=== PATIENT | male | born 1980 | race Caucasian/White ===

== ENCOUNTER 2020-02-22 11:10 | Emergency (ER) | payer OTHER ==
[~2020-02-22] VITALS: Ht 185.4 cm; Wt 104.3 kg
[2020-02-22 15:03] VITALS: BP 133/98
[2020-02-22] MEDS ORDERED: ACETAMINOPHEN 325 MG TAB PO ONE (15:30)
[2020-02-22] MEDS ORDERED: METHOCARBAMOL 500 MG TAB PO ONE (15:30)
== END 2020-02-22 15:50 | disposition home or self-care (01) ==
LOC: ER 11:10
DX: S62.366A Nondisplaced fracture of neck of fifth metacarpal bone, right hand, initial encounter for closed fracture (principal); Z88.0 Allergy status to penicillin; X58.XXXA Exposure to other specified factors, initial encounter; Y93.89 Activity, other specified; Y92.89 Other specified places as the place of occurrence of the external cause; Y99.8 Other external cause status
CPT/HCPCS: 29125; 73130

== ENCOUNTER 2020-10-11 07:00 | Emergency (ER) | payer OTHER ==
[~2020-10-11] VITALS: Ht 185.4 cm; Wt 108.9 kg
[2020-10-11] MEDS ORDERED: CLINDAMYCIN 900MG IV 50 ML IV ONE (07:45)
[2020-10-11] MEDS ORDERED: cefTRIAXone 1GM/50ML D5W 50 ML IV ONE (07:45)
[2020-10-11] MEDS ORDERED: KETOROLAC TROMETH 30 MG/ML 1ML VIAL IV ONE (08:00)
[2020-10-11 08:21] LABS: Hematocrit 45.6 % (41.0-53.0); Hemoglobin 15.8 g/dL (13.5-17.5); Mean Corpuscular Hgb Conc. 34.6 g/dL (32.0-36.0); Mean Corpuscular Volume 89.7 fL (80.0-100.0); Platelet Count (auto) 211 10^3/uL (140-450); Red Blood Cells 5.08 10^6/uL (4.5-5.90); Red Cell Distribution Width 12.4 % (11.8-14.3); White Blood Cell 7.5 10^3/uL (4.4-10.8)
[2020-10-11 08:32] LABS: Basophils % (manual) 0 (0.0-2.0); Blast Cells 0; Metamyelocytes % 0; Myelocytes % 0; Promyelocytes % 0
[2020-10-11 08:38] LABS: BUN/Creatinine Ratio 9.2; Calcium 8.5 mg/dL (8.5-10.1); Potassium 3.7 mmol/L (3.5-5.1)
[2020-10-11 08:44] LABS: Urine Bacteria NONE SEEN /hpf (None Seen); Urine Blood Negative /uL (Negative); Urine Mucus FEW (None Seen); Urine Specific Gravity 1.026 (1.001-1.035); Urine WBC <1 /hpf (0 - 3)
[2020-10-11] MEDS ORDERED: SODIUM CHLORIDE 0.9% 1,000 ML IV ONE (09:00)
[2020-10-11 09:32] LABS: Band Neutrophils % (manual) 6; Eosinophils % (manual) 5 (0-7); Lymphocytes % (manual) 27 (10.0-50.0); Monocytes % (manual) 17 (0-12); Reactive Lymphocytes 3
[2020-10-11 09:41] VITALS: BP 125/87
== END 2020-10-11 12:40 | disposition home or self-care (01) ==
LOC: ER 07:00
DX: N48.5 Ulcer of penis (principal); N50.89 Other specified disorders of the male genital organs; F17.210 Nicotine dependence, cigarettes, uncomplicated; Z88.0 Allergy status to penicillin
CPT/HCPCS: 36415; 76870; 80048; 81001; 83605; 85007; 85027; 87040; 96361; 96365; 96368; 96375; 99284; J0696; J1885; J3490; J7030; 87077

== ENCOUNTER 2020-10-12 21:39 | Emergency (ER) | payer OTHER ==
[~2020-10-12] VITALS: Ht 182.9 cm; Wt 102.1 kg
[2020-10-12 23:27] LABS: Basophils # (auto) 0.1 10 ^3/uL (0-0.2); Basophils % (auto) 0.8 % (0.0-2.0); Eosinophils # (auto) 0.4 10 ^3/uL (0-0.8); Eosinophils % (auto) 5.8 % (0.0-7.0); Hematocrit 44.8 % (41.0-53.0); Hemoglobin 15.3 g/dL (13.5-17.5); Lymphocytes % (auto) 44.2 % (10.0-50.0); Mean Corpuscular Hemoglobin 30.9 pg (28.0-32.0); Mean Corpuscular Hgb Conc. 34.2 g/dL (32.0-36.0); Mean Corpuscular Volume 90.3 fL (80.0-100.0); Monocytes # (auto) 0.8 10 ^3/uL (0-1.3); Monocytes % (auto) 12.4 % (0.0-12.0); Neutrophils # (auto) 2.5 10 ^3/uL (1.6-8.6); Neutrophils % (auto) 36.8 % (37.0-80.0); Nucleated Red Blood Cells % 0.1 %; Platelet Count (auto) 231 10^3/uL (140-450); Red Blood Cells 4.96 10^6/uL (4.5-5.90); Red Cell Distribution Width 12.6 % (11.8-14.3); White Blood Cell 6.7 10^3/uL (4.4-10.8)
[2020-10-12 23:43] LABS: Albumin 3.8 g/dL (3.4-5.0); BUN/Creatinine Ratio 12.3; Calcium 8.8 mg/dL (8.5-10.1); INR 0.93 (0.9-1.15); Partial Thromboplastin Time 26.6 sec (23.0-31.2); Potassium 3.9 mmol/L (3.5-5.1)
[2020-10-12 23:46] LABS: Bilirubin, Total 0.4 mg/dL (0.2-1.0); Total Protein 7.7 g/dL (6.4-8.2)
[2020-10-13 04:02] VITALS: BP 133/88
== END 2020-10-13 04:28 | disposition home or self-care (01) ==
LOC: ER 21:39
DX: N49.2 Inflammatory disorders of scrotum (principal); S31.2 Open wound of penis; L08.9 Local infection of the skin and subcutaneous tissue, unspecified; R78.81 Bacteremia; Z88.0 Allergy status to penicillin; W50.3XXD Accidental bite by another person, subsequent encounter
CPT/HCPCS: 36415; 80053; 85025; 85610; 85730; 87040; 87205

== ENCOUNTER 2021-03-22 12:14 | Emergency (ER) | payer OTHER ==
[~2021-03-22] VITALS: Ht 185.4 cm; Wt 99.8 kg
[2021-03-22 14:37] VITALS: BP 128/91
[2021-03-22] MEDS ORDERED: methylPREDNISolone SOD SUCC 125 MG/2 ML VL IM ONE (15:00)
[2021-03-22] MEDS ORDERED: cefTRIAXone SOD 1,000 MG VL IM ONE (15:00)
== END 2021-03-22 15:34 | disposition home or self-care (01) ==
LOC: ER 12:14
DX: J01.00 Acute maxillary sinusitis, unspecified (principal); K12.2 Cellulitis and abscess of mouth; F17.210 Nicotine dependence, cigarettes, uncomplicated; Z90.49 Acquired absence of other specified parts of digestive tract; Z90.89 Acquired absence of other organs
CPT/HCPCS: 71046; 96372; 99284; J0696; J2930

== ENCOUNTER 2021-10-25 09:24 | Emergency (ER) | payer OTHER ==
[~2021-10-25] VITALS: Ht 185.4 cm; Wt 93.0 kg
[2021-10-25 10:07] VITALS: BP 115/85
[2021-10-25] MEDS ORDERED: ACETAMINOPHEN 500 MG TAB PO ONE (10:15)
[2021-10-25] MEDS ORDERED: methylPREDNISolone SOD SUCC 125 MG/2 ML VL IM ONE (10:15)
[2021-10-25] MEDS ORDERED: cefTRIAXone SOD 1,000 MG VL IM ONE (10:15)
[2021-10-25] MEDS ORDERED: AZIT500T66 PO (10:38)
[2021-10-25] MEDS ORDERED: IBUP800T27 PO (10:38)
[2021-10-25] MEDS ORDERED: PROM1SOL4 PO (10:38)
== END 2021-10-25 10:51 | disposition home or self-care (01) ==
LOC: ER 09:24
DX: J02.9 Acute pharyngitis, unspecified (principal); J20.9 Acute bronchitis, unspecified; H66.91 Otitis media, unspecified, right ear; F17.210 Nicotine dependence, cigarettes, uncomplicated; Z90.49 Acquired absence of other specified parts of digestive tract; Z90.89 Acquired absence of other organs
CPT/HCPCS: 71046; 96372; 99284; J0696; J2930

== ENCOUNTER 2024-11-05 19:07 | Inpatient (IN) | payer OTHER ==
[~2024-11-05] VITALS: Ht 185.4 cm; Wt 99.7 kg
[~2024-11-05 19:07] MED LIST: AZIT500T66 PO; IBUP-1456 PO; PROM1SOL4 PO
--- NOTE | 2024-11-05 19:50 | DVH ---
Exam: CT CT AB PEL WO CON-NO ORAL OR IV History: abd pain Comparison Study: None available at time of dictation. TECHNIQUE: Multidetector CT of the abdomen was performed from lung bases to pubic symphysis. Imaging was performed without IV contrast. Axial, coronal and sagittal multiplanar reformats were obtained fr om the axial data set by the technologist. Radiation Dose Information: CT Dose: CTDI volume is 17.28 mGy. Dose-length product is 1030.9 mGy*cm FINDINGS: Evaluation of solid organs is limited due to lack of intravenous contrast use. Findings: Lung Bases: No acute or significant lung base finding. Normal heart size. No pleural or pericardial effusion. Liver: The liver is normal in size. No focal lesions. Gallbladder and Biliary Tree: Unremarkable Spleen: Unremarkable Pancreas: The pancreas is grossly normal in appearance. Adrenal Glands: Unremarkable Kidneys: Kidneys are grossly normal without calculi or hydronephrosis. Bladder: Grossly unremarkable for degree of distention. Bowel: The stomach is grossly normal in appearance. Small bowel and colon are normal in caliber and d istribution. Diverticulosis with A concentrated area of diverticuli in the sigmoid colon 4 there is p ericolonic stranding suggesting inflammatory changes and acute diverticulitis. There is no free air o r free fluid. The appendix is not visualized; however, no secondary findings of acute appendicitis i dentified. Ascites: Absent Lymphadenopathy: No mesenteric, retroperitoneal or periportal lymphadenopathy. Abdominal Wall and Mesentery: Unremarkable. Vasculature: The visualized abdominal aorta is normal in size and caliber. Evaluation of abdominal a nd pelvic vessels is limited due to lack of intravenous contrast. Pelvic Organs: Unremarkable Musculoskeletal: No aggressive focal bony lesions, acute fractures or dislocation. Soft tissues: Unremarkable IMPRESSION: 1. Findings suggest uncomplicated sigmoid diverticulitis. Radiation optimization: All CT scans at this facility use at least one of these dose optimization sneha hniques: automated exposure control mA and/or kV adjustment per patient size (includes targeted exam s where dose is matched to clinical indication) or iterative reconstruction.
[2024-11-05 20:10] LABS: Basophils # (auto) 0 10 ^3/uL (0-0.2); Basophils % (auto) 0.3 % (0.0-2.0); Eosinophils # (auto) 0.3 10 ^3/uL (0-0.8); Eosinophils % (auto) 2.5 % (0.0-7.0); Hematocrit 49.3 % (41.0-53.0); Hemoglobin 16.6 g/dL (13.5-17.5); Lymphocytes # (auto) 2.1 10 ^3/uL (0.4-5.4); Lymphocytes % (auto) 14.9 % (10.0-50.0); Mean Corpuscular Hemoglobin 30.6 pg (28.0-32.0); Mean Corpuscular Hgb Conc. 33.7 g/dL (32.0-36.0); Mean Corpuscular Volume 90.9 fL (80.0-100.0); Monocytes # (auto) 1.6 10 ^3/uL (0-1.3); Monocytes % (auto) 11.3 % (0.0-12.0); Neutrophils # (auto) 9.9 10 ^3/uL (1.6-8.6); Nucleated Red Blood Cells % 0.2 %; Platelet Count (auto) 296 10^3/uL (140-450); Red Blood Cells 5.43 10^6/uL (4.5-5.90); Red Cell Distribution Width 12.9 % (11.8-14.3)
--- NOTE | 2024-11-05 20:24 | ED.PDOC ---
GI ASSESSMENT HPI Comments 43-year-old male presents with a chief complaint of abdominal pain x 3 days with associated rectal bleeding and melena. Patient states that his pain is localized to his rectum, radiates to his umbilicus, describes as sharp and rates his pain a 8/10. Patient mentions that his stool has been black in color and when he wipe s he has blood on the toilet paper. Patient mentions that the pain has been increasing for the past x 3 days. Patient denies any injuries or trauma prior to onset of symptoms. No other symptoms or modifying factors present at this time. PMHx: Denies PSHx: Appendectomy, Tonsillectomy Soila: HPI: Poor Historian. REVIEW OF SYSTEMS: CONSTITUTIONAL: Denies acute: fever, diaphoresis, chills, generalized weakness. HEAD: Denies acute: headache, photophobia Eyes: Denies acute: Double vision, vision loss, eye pain, eye discharge. EARS: Denies acute: tinnitus, hearing loss, ear discharge, ear pain, THROAT: Denies acute: sore throat, swelling, difficulty swallowing , pain with swallowing, change in voice. NECK: Denies acute: neck pain, neck swelling, stiff neck. HEART: Denies acute : chest pain, palpitations, LUNGS: Denies acute: SOB, wheezing, cough, hemoptysis ABDOMEN: Denies acute: Nausea, Vomiting, diarrhea, , hematemesis, SKIN: Denies acute: rash, redness, lesions, itchiness. EXTREMITIES: Denies acute: calf pain, numbness, tingling, weakness, denies pain in extremity. Denies acute: Low back pain. Neuro: Denies acute: focal neurological deficit, motor or sensory focal neurological deficit, tremors, seizure like activity, confusion, dizziness, change in mental status, loss of bowel or bladder function, cauda equina like symptoms. : Denies acute: dysuria, hematuria, flank pain, increase in urinary frequency. PSYCH: Denies acute: hallucination, suicidal ideation, homicidal ideation. PHYSICAL EXAM: General: no acute distress, awake and alert. Head: normocephalic, atraumatic. Neck: supple, trachea is midline, no swelling. Throat: Normal phonation. Eyes:, no erythema, no purulent discharge, no proptosis, no icterus. Heart: regular rate, regular rhythm, no significant murmur appreciated. Lungs: no apparent respiratory distress, Able to speak in full sentences. No wheezing, no rhonchi, no crackles. No stridors Clear to auscultation bilaterally. Abdomen: Periumbilical and left lower quadrant tender to palpation, non distended, soft, no guarding, no rebound, + bowel sounds. Neuro: Awake, Alert, oriented to name, self, situation, follows commands GCS=15. Speech is normal. Skin: no petechia, no purpura, no cyanosis, non-pale, not jaundice. Lower extremities: --no - Pitting edema no deformity, no focal swelling, no calf TTP. Makes eye contact. moves all four extremities. Face: no apparent facial droop. Ambulating in the ED independently. ED COURSE: At this time 9:33 p.m. The case was discussed with the admitting team (HPI, physical exam, labs and diagnostic tests that were available at the time of disposition, ED course, treatment plan) on the phone. They agreed to admit the patient to their service and assume care of this patient from this point forward. NICKOLAS England. Time Seen by MD: 20:15 Primary Care Provider: WALTER ARENAS Reviewed Notes: Nurses Notes, Medications, Allergies Allergies: Coded Allergies: Penicillins (Verified Allergy, Unknown, 02/22/20) Home Meds Active Scripts Promethazine-Dm (Promethazine Dm 6.25-15 mg/5Ml) 1 Marielena Marielena, 1 MARIELENA PO TID, #180 ML Prov:MIKALA GARCES 10/25/21 Ibuprofen (Ibuprofen) 800 Mg Tab, 800 MG PO Q8HP PRN, #30 TAB Prov:MIKALA GARCES 10/25/21 Azithromycin (Azithromycin) 500 Mg Tab, 500 MG PO DAILY for 7 Days, #7 TAB Prov:MIKALA GARCES 10/25/21 Information Source: Patient Mode of Arrival: Ambulatory Timing: Days Duration: Since onset Prehospital treatment: None Quality: Sharp Past Medical History PAST MEDICAL HISTORY: Denies Surgical History: Appendectomy, Tonsillectomy Family History Family History: Reviewed,noncontributory to illness Social History Smoker: Cigarettes Alcohol: Occasionally Drugs: Cocaine Lives In: Home Was a procedure done? Was a procedure done?: No GI differential Dx Differential Diagnosis: Other (DDX include but not limited to diverticulitis, colitis, gastroenteritis, acute abdomen, SBO, enteritis, constipation, volvulus, appendicitis, Gallbladder disease, choledocolithiasis, ascending cholangitis, pancreatitis, intraAbdominal mass/neoplasm, hepatitis, UTI, pylonephritis, kidney stone, aneurysm, dissection, Inflammatory bowel disease, gastroparesis, ischemic bowel.) X-Ray, Labs, Meds, VS Vital Signs Date Time Temp Pulse Resp B/P (MAP) Pulse Ox O2 Delivery O2 Flow Rate FiO2 11/05/24 20:30 99.4 113 20 134/97 (109) 98 99.4 Lab Test 11/05/24 19:39 11/05/24 00:00 Range/Units White Blood Count 14.0 H 4.4-10.8 10^3/uL Red Blood Count 5.43 4.5-5.90 10^6/uL Hemoglobin 16.6 13.5-17.5 g/dL Hematocrit 49.3 41.0-53.0 % Mean Corpuscular Volume 90.9 80.0-100.0 fL Mean Corpuscular Hemoglobin 30.6 28.0-32.0 pg Mean Corpuscular Hemoglobin Concent 33.7 32.0-36.0 g/dL Red Cell Distribution Width 12.9 11.8-14.3 % Platelet Count 296 140-450 10^3/uL Mean Platelet Volume 8.3 6.9-10.8 fL Neutrophils (%) (Auto) 71.0 37.0-80.0 % Lymphocytes (%) (Auto) 14.9 10.0-50.0 % Monocytes (%) (Auto) 11.3 0.0-12.0 % Eosinophils (%) (Auto) 2.5 0.0-7.0 % Basophils (%) (Auto) 0.3 0.0-2.0 % Neutrophils # (Auto) 9.9 H 1.6-8.6 10 ^3/uL Lymphocytes # (Auto) 2.1 0.4-5.4 10 ^3/uL Monocytes # (Auto) 1.6 H 0-1.3 10 ^3/uL Eosinophils # (Auto) 0.3 0-0.8 10 ^3/uL Basophils # (Auto) 0 0-0.2 10 ^3/uL Nucleated Red Blood Cells 0.2 % Sodium Level 141 136-145 mmol/L Potassium Level 3.8 3.5-5.1 mmol/L Chloride Level 104 98-107 mmol/L Carbon Dioxide Level 28 20-31 mmol/L Anion Gap 9 5-15 Blood Urea Nitrogen 10 9-23 mg/dL Creatinine 0.86 0.700-1.30 mg/dL Glomerular Filtration Rate Calc 110 >90 mL/min BUN/Creatinine Ratio 11.6 10.0-20.0 Serum Glucose 118 H 74-106 mg/dL Lactic Acid Level 1.3 0.4-2.0 mmol/L Calcium Level 10.2 8.7-10.4 mg/dL Total Bilirubin 0.7 0.2-1.0 mg/dL Aspartate Amino Transferase (AST) 10 L 13-40 U/L Alanine Aminotransferase (ALT) 16 7-40 U/L Alkaline Phosphatase 91 46-116 U/L Total Protein 7.5 5.7-8.2 g/dL Albumin 4.9 H 3.2-4.8 g/dL Lipase 44 12-53 U/L Urine Color Yellow Yellow Urine Clarity Clear Clear Urine pH 5.5 5.0-9.0 Urine Specific [place] 1.026 1.001-1.035 Urine Protein Negative Negative Urine Ketones Negative Negative Urine Blood Negative Negative /uL Urine Nitrite Negative Negative Urine Bilirubin Negative Negative Urine Urobilinogen 2 H Negative mg/dL Urine Leukocyte Esterase Negative Negative /uL Urine RBC <1 0 - 3 /hpf Urine Microscopic WBC 0-3 /HPF Urine Squamous Epithelial Cells None seen <5 /hpf Urine Bacteria None seen None Seen /hpf Urine Mucus Few None Seen Urine Glucose Normal Normal mg/dL Urine Opiates Screen Neg NEGATIVE Urine Fentanyl Screen Neg NEGATIVE Urine Barbiturates Screen Neg NEGATIVE Urine Phencyclidine Screen Neg NEGATIVE Urine Amphetamines Screen Neg NEGATIVE Urine Benzodiazepines Screen Neg NEGATIVE Urine Cocaine Screen Pos NEGATIVE Urine Cannabinoids Screen Neg NEGATIVE PATIENT: LAILA PUENTESACCT: [id number]: [id number] : 1980 LOC: ER ROOM / BED: / AGE / SEX: 43 / M ADM STATUS: REG ER SERVICE 10 ORDERING PHYSICIAN: BARB BARBOSA DO PROCEDURE(s): ABPL - CT AB PEL WO CON-NO ORAL OR IV REASON: abd pain ORDER NUMBER(s): [id number], ACCESSION NUMBER(s): [id number] Exam: CT CT AB PEL WO CON-NO ORAL OR IV History: abd pain Comparison Study: None available at time of dictation. TECHNIQUE: Multidetector CT of the abdomen was performed from lung bases to pubic symphysis. Imaging was performed without IV contrast. Axial, coronal and sagittal multiplanar reformats were obtained from the axial data set by the technologist. Radiation Dose Information: CT Dose: CTDI volume is 17.28 mGy. Dose-length product is 1030.9 mGy*cm FINDINGS: Evaluation of solid organs is limited due to lack of intravenous contrast use. Findings: Lung Bases: No acute or significant lung base finding. Normal heart size. No pleural or pericardial effusion. Liver: The liver is normal in size. No focal lesions. Gallbladder and Biliary Tree: Unremarkable Spleen: Unremarkable Pancreas: The pancreas is grossly normal in appearance. Adrenal Glands: Unremarkable Kidneys: Kidneys are grossly normal without calculi or hydronephrosis. Bladder: Grossly unremarkable for degree of distention. Bowel: The stomach is grossly normal in appearance. Small bowel and colon are normal in caliber and distribution. Diverticulosis with A concentrated area of diverticuli in the sigmoid colon 4 there is pericolonic stranding suggesting inflammatory changes and acute diverticulitis. There is no free air or free fluid. The appendix is not visualized; however, no secondary findings of acute appendicitis identified. Ascites: Absent Lymphadenopathy: No mesenteric, retroperitoneal or periportal lymphadenopathy. Abdominal Wall and Mesentery: Unremarkable. Vasculature: The visualized abdominal aorta is normal in size and caliber. Evaluation of abdominal and pelvic vessels is limited due to lack of intravenous contrast. Pelvic Organs: Unremarkable Musculoskeletal: No aggressive focal bony lesions, acute fractures or dislocation. Soft tissues: Unremarkable IMPRESSION: 1. Findings suggest uncomplicated sigmoid diverticulitis. Radiation optimization: All CT scans at this facility use at least one of these dose optimization techniques: automated exposure control mA and/or kV adjustment per patient size (includes targeted exams where dose is matched to clinical indication) or iterative reconstruction. ATED BY: TYLER ASTORGA Jr., DO DICTATED DATE/TIME: 11/05/241946 SIGNED BY: TYLER ASTORGA Jr., SIGNED DATE/TIME: 11/05/241946 Time of 1ST Reevaluation: 20:45 Reevaluation 1ST: Unchanged Time of 2ND Reevaluation: 20:31 (Patient wants to be discharged home because he said he has to go and see his dad who is dying of cancer. He said he wants to take his chances by only taking oral antibiotics for now. I instructed him to return to the emergency department if his symptoms change or worsen or seek medical help as soon as he sorts out his family affairs.) Time of 3RD Reevaluation: 21:00 (Patient changes mind and now is willing to be admitted to the hospital.) Patient Education/Counseling: Diagnosis, Treatment Family Education/Counseling: No Family Present Departure 1 Departure Time of Disposition: 20:32 Impression: Primary Impression: Acute diverticulitis Additional Impressions: Hematochezia Leukocytosis Disposition: ADMITTED INPATIENT Admit to: Tele Condition: Guarded Additional Instructions: Discharged With: Self Critical Care Note Critical Care Time?: Yes (35 min-critical care time only) I personally scribed for BARB BARBOSA DO ([email or web address]) on 11/05/24 at 20:24. Electronically submitted by Jose Armando Mcintosh ([email or web address]). I personally scribed for BARB BARBOSA DO ([email or web address]) on 11/05/24 at 20:44. Electronically submitted by Jose Armando Mcintosh ([email or web address]). BARB BARBOSA DO Nov 05, 2024 20:24
[2024-11-05 20:27] LABS: Alanine Aminotransferase 16 U/L (7-40); Alkaline Phosphatase 91 U/L (46-116); Anion Gap 9 (5-15); BUN/Creatinine Ratio 11.6 (10.0-20.0); Blood Urea Nitrogen 10 mg/dL (9-23); Calcium 10.2 mg/dL (8.7-10.4); Carbon Dioxide 28 mmol/L (20-31); Chloride 104 mmol/L (98-107); Lipase 44 U/L (12-53); Potassium 3.8 mmol/L (3.5-5.1); Sodium 141 mmol/L (136-145); Total Protein 7.5 g/dL (5.7-8.2)
[2024-11-05 20:28] LABS: Bilirubin, Total 0.7 mg/dL (0.2-1.0)
[2024-11-05 20:30] LABS: Albumin 4.9 g/dL (3.2-4.8); Aspartate Aminotransferase 10 U/L (13-40); Glucose 118 mg/dL (74-106)
[2024-11-05] MEDS: SODIUM CHLORIDE 0.9% 1,000 ML IV ONE (20:30)
[2024-11-05 20:40] VITALS: PULSE 120; RESP 22; O2SAT 94
[2024-11-05 20:43] LABS: Urine Bacteria None Seen /hpf (None Seen)
[2024-11-05 21:01] LABS: Urine Blood Negative /uL (Negative); Urine Clarity Clear (Clear); Urine Color Yellow (Yellow); Urine Mucus FEW (None Seen); Urine Protein, UAD Negative (Negative); Urine Specific Gravity 1.026 (1.001-1.035); Urine Squamous Epithelial Cell None Seen /hpf (<5); Urine Urobilinogen 2 mg/dL (Negative); Urine pH 5.5 (5.0-9.0)
[2024-11-05 21:09] LABS: Amphetamine Screen, Urine Neg (NEGATIVE)
[2024-11-05 21:12] LABS: Barbiturate Scree,Urine Neg (NEGATIVE); Benzodiazephine Screen, Urine Neg (NEGATIVE); Cannabinoid Screen, Urine Neg (NEGATIVE); Cocaine Screen, Urine Pos (NEGATIVE); Opiate Scree,Urine Neg (NEGATIVE); Phencyclidine Screen, Urine Neg (NEGATIVE)
[2024-11-05] MEDS: fentaNYL CITRATE 100 MCG/2 ML VL IV ONE (21:55)
[2024-11-05] MEDS: metroNIDAZOLE 500MG/100ML 100 ML IV ONE (22:01)
[2024-11-05] MEDS: CIPROFLOXACIN 400MG/200ML 200 ML IV ONE (22:57)
[2024-11-05 23:30] VITALS: PULSE 103; RESP 33; O2SAT 97
[2024-11-05] MEDS ORDERED: NITROGLYCERIN 0.4 MG SL TAB SL PRN (23:30)
[2024-11-05] MEDS ORDERED: DOCUSATE SOD 100 MG CAP PO PRN (23:30)
[2024-11-05] MEDS ORDERED: ACETAMINOPHEN 325 MG TAB PO PRN (23:30)
[2024-11-05] MEDS ORDERED: ONDANSETRON HCL 4 MG/2 ML VIAL IV PRN (23:30)
[2024-11-05] MEDS ORDERED: MORPHINE SULFATE INJ 2 MG/ml SYRG IV PRN (23:30)
[2024-11-05] MEDS: SODIUM CHLORIDE 0.9% 1,000 ML IV SCH (23:44)
[2024-11-06] VITALS (7 sets, daily range): BP systolic 126–140; BP diastolic 65–87; PULSE 80–97; RESP 17–20; TEMP 97.6–98.7; O2SAT 93–97
[2024-11-06] MEDS: HYDROcodone-ACET 5/325MG TAB PO PRN (00:39)
--- NOTE | 2024-11-06 01:15 | DVHHP2 ---
NATALIYA MENDEZ MEDICAL AND SCIENTIFIC ILLUSTRATOR 11/06/24 0115: History of Present Illness Reason for Visit: Abdominal pain History of Present Illness 43-year-old male without any pertinent medical history presents with complaints of abdominal pain x3 days. Abdominal pain intermittent and sharp /10. Pain radiating from rectum. Patient also endorses blood in stool. During the emergency department evaluation W 14, H and H 16.6/49.3, PLT 296. CMP unremarkable. UDS was positive for cocaine. CT of the abdomen and pelvis demonstrates acute diverticulitis. At this time patient denies fevers, chills, shortness of breath, chest pain, nausea, vomiting. Smoke: 1 pack per day ALCOHOL: occassional Drugs: Cocaine Lives: with Family Review of Systems Constitutional: No: Fever, Chills, Sweats, Weakness, Malaise, Other Eyes: No: Pain, Vision change, Conjunctivae inflammation, Eyelid inflammation, Other, Redness ENT: No: Ear pain, Ear discharge, Nose pain, Nose discharge, Nose congestion, Mouth pain, Mouth swelling, Throat pain, Throat swelling, Other Respiratory: No: Cough, Dry, Shortness of breath, SOB with excertion, Wheezing, Hemoptysis, Pleuritic Pain, Sputum, Wheezing, Other Cardiovascular: No: Chest Pain, Palpitations, Orthopnea, Paroxysmal Noc. Dyspnea, Edema, Lt Headedness, Other Gastrointestinal: Abdominal Pain, Hematochezia; No: Nausea, Vomiting, Diarrhea, Constipation, Melena, Other Genitourinary: No Dysuria, No Frequency, No Incontinence, No Hematuria, No Retention, No Other Musculoskeletal: No: other, neck pain, shoulder pain, arm pain, back pain, hand pain, leg pain, foot pain Skin: No: Rash, Lesions, Jaundice, Bruising, Other Neurological: No: Weakness, Numbness, Incoordination, Change in speech, Confusion, Seizures, Other Allergies: Coded Allergies: Penicillins (Verified Allergy, Unknown, 02/22/20) Medications Current Medications Medications Dose Ordered Sig/Thad Route Start Time Stop Time Status Last Admin Dose Admin Sodium Chloride 1,000 ml @ 100 mls/hr Q10H IV 11/05/24 23:30 11/05/24 23:44 100 MLS/HR Docusate Sodium 100 mg BIDPRN PRN PO 11/05/24 23:30 Acetaminophen 650 mg Q6HP PRN PO 11/05/24 23:30 Acetaminophen/ Hydrocodone Bitart 1 tab Q4HP PRN PO 11/05/24 23:30 11/06/24 00:39 1 TAB Ondansetron HCl 4 mg Q4HP PRN IV 11/05/24 23:30 Morphine Sulfate 2 mg Q4HPRN PRN IV 11/05/24 23:30 Nitroglycerin 0.4 mg Q5MINP PRN SL 11/05/24 23:30 Morphine Sulfate 2 mg Q30M PRN IV 11/05/24 23:30 Metronidazole 100 ml @ 100 mls/hr Q8HR IV 11/06/24 06:00 Levofloxacin/ Dextrose 100 ml @ 100 mls/hr DAILY IV 11/06/24 10:00 Exam Vital Signs Vital Signs Date Time Temp Pulse Resp B/P (MAP) Pulse Ox O2 Delivery O2 Flow Rate FiO2 11/05/24 23:30 103 33 97 Room Air* 0 21 11/05/24 23:25 99.8 99.8 11/05/24 23:23 128/78 (95) General Appearance: Alert, Oriented X3, Cooperative, mild distress HEENT: Atraumatic, PERRLA, EOMI Respiratory: Clear to auscultation, Normal air movement Cardiovascular: Regular rate, Normal S1, Normal S2 Abdominal: Normal bowel sounds, Soft, No tenderness Extremities: No clubbing, No cyanosis, No edema, Normal pulses Skin: No rashes, No breakdown Neuro: Normal gait, Normal speech, Strength at 5/5 X4 ext Psych/Mental Status: Mental status NL, Mood NL Labs/Xrays Labs Test 11/05/24 19:39 11/05/24 00:00 Range/Units White Blood Count 14.0 H 4.4-10.8 10^3/uL Red Blood Count 5.43 4.5-5.90 10^6/uL Hemoglobin 16.6 13.5-17.5 g/dL Hematocrit 49.3 41.0-53.0 % Mean Corpuscular Volume 90.9 80.0-100.0 fL Mean Corpuscular Hemoglobin 30.6 28.0-32.0 pg Mean Corpuscular Hemoglobin Concent 33.7 32.0-36.0 g/dL Red Cell Distribution Width 12.9 11.8-14.3 % Platelet Count 296 140-450 10^3/uL Mean Platelet Volume 8.3 6.9-10.8 fL Neutrophils (%) (Auto) 71.0 37.0-80.0 % Lymphocytes (%) (Auto) 14.9 10.0-50.0 % Monocytes (%) (Auto) 11.3 0.0-12.0 % Eosinophils (%) (Auto) 2.5 0.0-7.0 % Basophils (%) (Auto) 0.3 0.0-2.0 % Neutrophils # (Auto) 9.9 H 1.6-8.6 10 ^3/uL Lymphocytes # (Auto) 2.1 0.4-5.4 10 ^3/uL Monocytes # (Auto) 1.6 H 0-1.3 10 ^3/uL Eosinophils # (Auto) 0.3 0-0.8 10 ^3/uL Basophils # (Auto) 0 0-0.2 10 ^3/uL Nucleated Red Blood Cells 0.2 % Sodium Level 141 136-145 mmol/L Potassium Level 3.8 3.5-5.1 mmol/L Chloride Level 104 98-107 mmol/L Carbon Dioxide Level 28 20-31 mmol/L Anion Gap 9 5-15 Blood Urea Nitrogen 10 9-23 mg/dL Creatinine 0.86 0.700-1.30 mg/dL Glomerular Filtration Rate Calc 110 >90 mL/min BUN/Creatinine Ratio 11.6 10.0-20.0 Serum Glucose 118 H 74-106 mg/dL Lactic Acid Level 1.3 0.4-2.0 mmol/L Calcium Level 10.2 8.7-10.4 mg/dL Total Bilirubin 0.7 0.2-1.0 mg/dL Aspartate Amino Transferase (AST) 10 L 13-40 U/L Alanine Aminotransferase (ALT) 16 7-40 U/L Alkaline Phosphatase 91 46-116 U/L Total Protein 7.5 5.7-8.2 g/dL Albumin 4.9 H 3.2-4.8 g/dL Lipase 44 12-53 U/L Urine Color Yellow Yellow Urine Clarity Clear Clear Urine pH 5.5 5.0-9.0 Urine Specific [place] 1.026 1.001-1.035 Urine Protein Negative Negative Urine Ketones Negative Negative Urine Blood Negative Negative /uL Urine Nitrite Negative Negative Urine Bilirubin Negative Negative Urine Urobilinogen 2 H Negative mg/dL Urine Leukocyte Esterase Negative Negative /uL Urine RBC <1 0 - 3 /hpf Urine Microscopic WBC 0-3 /HPF Urine Squamous Epithelial Cells None seen <5 /hpf Urine Bacteria None seen None Seen /hpf Urine Mucus Few None Seen Urine Glucose Normal Normal mg/dL Urine Opiates Screen Neg NEGATIVE Urine Fentanyl Screen Neg NEGATIVE Urine Barbiturates Screen Neg NEGATIVE Urine Phencyclidine Screen Neg NEGATIVE Urine Amphetamines Screen Neg NEGATIVE Urine Benzodiazepines Screen Neg NEGATIVE Urine Cocaine Screen Pos NEGATIVE Urine Cannabinoids Screen Neg NEGATIVE Assessment/Plan Assessment/Plan Acute diverticulitis Hematochezia Cocaine use Plan Admit medical floor Gastroenterology consult IVF IV ABX occult stool pending Social service consult GI ppx protonix / DVT ppx SCD Plan discussed with: Patient My Orders Orders - NATALIYA MENDEZ NP Procedure Category Date Status Time Communication Order ORDERS 11/05/24 Transmitted 22:35 Admit ADMIT 11/05/24 Transmitted 23:27 Code Status CODE 11/05/24 Transmitted 23:27 Vital Signs KERON 11/05/24 In Process 23:27 Review Orders With KERON 11/05/24 In Process Adm. 23:27 Encourage Activity As KERON 11/05/24 In Process Tolerate 23:27 Up Ad Cristina KERON 11/05/24 In Process 23:27 Sodium Chloride 0.9% PHA 11/05/24 In Process 23:30 Oxygen By Face Mask RT 11/05/24 Transmitted 23:27 Docusate Sodium PHA 11/05/24 In Process Capsule (Colace 23:30 Acetaminophen Tablet PHA 11/05/24 In Process (Tylenol Tablet) 23:30 Notify Of Changes KERON 11/05/24 In Process From Base 23:27 Advance Directive KERON 11/05/24 In Process 23:27 Basic Metabolic Panel LAB 11/06/24 Logged 05:00 Basic Metabolic Panel LAB 11/07/24 Verified 05:00 Basic Metabolic Panel LAB 11/08/24 Verified 05:00 Basic Metabolic Panel LAB 11/09/24 Verified 05:00 Complete Blood Count LAB 11/06/24 Logged 05:00 Complete Blood Count LAB 11/07/24 Verified 05:00 Complete Blood Count LAB 11/08/24 Verified 05:00 Complete Blood Count LAB 11/09/24 Verified 05:00 Complete Blood Count LAB 11/10/24 Verified 05:00 Patient Condition ORDERS 11/05/24 Transmitted 23:27 Allergies KERON 11/05/24 In Process 23:27 Hydrocodone-Acet PHA 11/05/24 In Process 5/325mg Tab ([place] 23:30 Ondansetron Hcl PHA 11/05/24 In Process (Zofran) 23:30 Morphine Sulfate PHA 11/05/24 In Process Injection 23:30 Sequential KERON 11/05/24 In Process Compression Device Nitroglycerin PHA 11/05/24 In Process Sublingual (Ntrostat 23:30 Morphine Sulfate PHA 11/05/24 In Process Injection 23:30 Stat Ekg For Chest KERON 11/05/24 In Process Pain 23:27 Notify Md Of Changes KERON 11/05/24 In Process From Base 23:27 Dairy Helper For KERON 11/05/24 In Process 24 Hours 23:27 Emergency Dysrhythmia KERON 11/05/24 In Process Protocol 23:27 Rhythm Strips Once KERON 11/05/24 In Process Every Shift 23:27 Oxygen By Nasal RT 11/05/24 Transmitted Cannula 23:27 Metronidazole PHA 11/06/24 In Process 500mg/100ml (Flagyl 06:00 Levofloxacin 500mg PHA 11/06/24 In Process (Levaquin 500mg/ 100m 10:00 * Gi Dvh Copy Writer CONS 11/05/24 Transmitted 23:27 Pantoprazole PHA 11/06/24 Transmitted (Protonix) 10:00 Date of Service: Nov 06, 2024 Billing Provider: AMAN SLOAN MD Common Visit Codes: NOT BILLABLE AMAN SLOAN MD 11/06/24 1241: Review of Systems Allergies: Coded Allergies: Penicillins (Verified Allergy, Unknown, 02/22/20) Assessment/Plan Assessment/Plan Patient chart is reviewed and discussed with the nurse practitioner. I agree with nurse practitioner's evaluation, documentation, assessment and care plan as outlined. NATALIYA MENDEZ NP Nov 06, 2024 01:15 AMAN SLOAN MD Nov 06, 2024 12:41
[2024-11-06 04:26] LABS: Basophils # (auto) 0.1 10 ^3/uL (0-0.2); Basophils % (auto) 0.5 % (0.0-2.0); Eosinophils # (auto) 0.3 10 ^3/uL (0-0.8); Eosinophils % (auto) 2.3 % (0.0-7.0); Hematocrit 43.4 % (41.0-53.0); Lymphocytes # (auto) 2.8 10 ^3/uL (0.4-5.4); Lymphocytes % (auto) 21.5 % (10.0-50.0); Mean Corpuscular Hemoglobin 31.3 pg (28.0-32.0); Mean Corpuscular Hgb Conc. 34.6 g/dL (32.0-36.0); Mean Corpuscular Volume 90.2 fL (80.0-100.0); Monocytes # (auto) 1.5 10 ^3/uL (0-1.3); Monocytes % (auto) 11.9 % (0.0-12.0); Neutrophils # (auto) 8.2 10 ^3/uL (1.6-8.6); Neutrophils % (auto) 63.8 % (37.0-80.0); Platelet Count (auto) 259 10^3/uL (140-450); Red Blood Cells 4.81 10^6/uL (4.5-5.90); Red Cell Distribution Width 12.7 % (11.8-14.3); White Blood Cell 12.8 10^3/uL (4.4-10.8)
[2024-11-06 04:35] LABS: Potassium 4.2 mmol/L (3.5-5.1); Sodium 140 mmol/L (136-145)
[2024-11-06 04:36] LABS: Anion Gap 7 (5-15); Calcium 9.9 mg/dL (8.7-10.4); Carbon Dioxide 25 mmol/L (20-31)
[2024-11-06 04:41] LABS: BUN/Creatinine Ratio 11.3 (10.0-20.0); Glucose 106 mg/dL (74-106)
[2024-11-06 04:42] LABS: Blood Urea Nitrogen 8 mg/dL (9-23); Chloride 108 mmol/L (98-107)
[2024-11-06] MEDS: metroNIDAZOLE 500MG/100ML 100 ML IV SCH (06:12)
[2024-11-06] MEDS: levoFLOXacin 500MG 100 ML IV SCH (08:27)
[2024-11-06] MEDS: PANTOPRAZOLE 40 MG/10 ML VIAL INJ IV SCH (08:27)
[2024-11-06] MEDS: MORPHINE SULFATE INJ 2 MG/ml SYRG IV PRN (08:44)
--- NOTE | 2024-11-06 14:00 | DVHINCON2 ---
Date of service: Nov 06, 2024 Referring Physician Larry History of Present Illness The patient is a 43-year-old male with a positive urine drug screen for cocaine, admitted with abdominal pain and blood in the stool, found to have acute uncomplicated sigmoid diverticulitis. Patient has no prior history. Denies any history of colonoscopy. GI consultation was obtained for evaluation. The patient states that he is feeling better. The pain is in the left lower quadrant without radiation. Patient was able to tolerate a soft diet. He wants to know if he can go home. Past Medical History Denies Past Surgical History Denies Family History: FH: cancer G8 FATHER FH: diverticulitis G8 FATHER FH: thyroid disease G8 MOTHER Family History History of diverticulitis Social History No significant tobacco alcohol however does use cocaine recreationally Allergies: Coded Allergies: Penicillins (Verified Allergy, Unknown, 02/22/20) Home Meds Active Scripts Promethazine-Dm (Promethazine Dm 6.25-15 mg/5Ml) 1 Marielena Marielena, 1 MARIELENA PO TID, #180 ML Prov:MIKALA GARCES 10/25/21 Ibuprofen (Ibuprofen) 800 Mg Tab, 800 MG PO Q8HP PRN, #30 TAB Prov:MIKALA GARCES 10/25/21 Azithromycin (Azithromycin) 500 Mg Tab, 500 MG PO DAILY for 7 Days, #7 TAB Prov:MIKALA GARCES 10/25/21 Current Medications Current Medications Medications (Trade) Dose Ordered Sig/Thad Route PRN Reason Start Time Stop Time Status Last Admin Sodium Chloride 1,000 ml @ 100 mls/hr Q10H IV 11/05/24 23:30 11/06/24 09:34 Docusate Sodium (Colace Capsule) 100 mg BIDPRN PRN PO FOR CONSTIPATION 11/05/24 23:30 Acetaminophen (Tylenol Tablet) 650 mg Q6HP PRN PO PAIN SCALE 1-3 OR TEMP>100.4 11/05/24 23:30 Acetaminophen/ Hydrocodone Bitart (Bertrand 5/325MG Tab) 1 tab Q4HP PRN PO MODERATE PAIN (4-6 PAIN SCALE) 11/05/24 23:30 11/06/24 00:39 Ondansetron HCl (Zofran) 4 mg Q4HP PRN IV NAUSEA / VOMITING 11/05/24 23:30 Morphine Sulfate 2 mg Q4HPRN PRN IV SEVERE PAIN (7-10 PAIN SCALE) 11/05/24 23:30 11/06/24 13:39 Nitroglycerin (Ntrostat Sublingual) 0.4 mg Q5MINP PRN SL FOR CHEST PAIN 11/05/24 23:30 Morphine Sulfate 2 mg Q30M PRN IV FOR CHEST PAIN 11/05/24 23:30 Metronidazole 100 ml @ 100 mls/hr Q8HR IV 11/06/24 06:00 11/06/24 06:12 Levofloxacin/ Dextrose 100 ml @ 100 mls/hr DAILY IV 11/06/24 10:00 11/06/24 08:27 Pantoprazole Sodium (Protonix) 40 mg DAILY IV 11/06/24 10:00 11/06/24 08:27 Review of Systems Twelve point review of systems negative other than HPI Vital Signs Vital Signs Date Time Temp Pulse Resp B/P (MAP) Pulse Ox O2 Delivery O2 Flow Rate FiO2 11/06/24 13:39 97 20 124/85 11/06/24 08:00 97.6 97.6 11/06/24 07:00 91 11/06/24 04:19 Room Air* 0 21 Physical Exam General: Alert and oriented x4 no distress HEENT: NC/AT EOMI PERRLA SOB clear no JVD Heart: Regular rate and rhythm Abdomen: Soft nontender nondistended normoactive bowel sounds Extremity: No clubbing cyanosis edema neurologically moves all four extremities Labs/Diagnostic Data Labs Test 11/06/24 09:00 11/06/24 03:59 11/05/24 19:39 11/05/24 00:00 Range/Units Stool Occult Blood Negative Negative Stool Occult Blood Sample #3 Negative White Blood Count 12.8 H 4.4-10.8 10^3/uL Red Blood Count 4.81 4.5-5.90 10^6/uL Hemoglobin 15.0 13.5-17.5 g/dL Hematocrit 43.4 # 41.0-53.0 % Mean Corpuscular Volume 90.2 80.0-100.0 fL Mean Corpuscular Hemoglobin 31.3 28.0-32.0 pg Mean Corpuscular Hemoglobin Concent 34.6 32.0-36.0 g/dL Red Cell Distribution Width 12.7 11.8-14.3 % Platelet Count 259 140-450 10^3/uL Mean Platelet Volume 8.0 6.9-10.8 fL Neutrophils (%) (Auto) 63.8 37.0-80.0 % Lymphocytes (%) (Auto) 21.5 10.0-50.0 % Monocytes (%) (Auto) 11.9 0.0-12.0 % Eosinophils (%) (Auto) 2.3 0.0-7.0 % Basophils (%) (Auto) 0.5 0.0-2.0 % Neutrophils # (Auto) 8.2 1.6-8.6 10 ^3/uL Lymphocytes # (Auto) 2.8 0.4-5.4 10 ^3/uL Monocytes # (Auto) 1.5 H 0-1.3 10 ^3/uL Eosinophils # (Auto) 0.3 0-0.8 10 ^3/uL Basophils # (Auto) 0.1 0-0.2 10 ^3/uL Nucleated Red Blood Cells 0.0 % Sodium Level 140 136-145 mmol/L Potassium Level 4.2 3.5-5.1 mmol/L Chloride Level 108 H 98-107 mmol/L Carbon Dioxide Level 25 20-31 mmol/L Anion Gap 7 5-15 Blood Urea Nitrogen 8 L 9-23 mg/dL Creatinine 0.71 0.700-1.30 mg/dL Glomerular Filtration Rate Calc 117 >90 mL/min BUN/Creatinine Ratio 11.3 10.0-20.0 Serum Glucose 106 74-106 mg/dL Calcium Level 9.9 8.7-10.4 mg/dL Lactic Acid Level 1.3 0.4-2.0 mmol/L Total Bilirubin 0.7 0.2-1.0 mg/dL Aspartate Amino Transferase (AST) 10 L 13-40 U/L Alanine Aminotransferase (ALT) 16 7-40 U/L Alkaline Phosphatase 91 46-116 U/L Total Protein 7.5 5.7-8.2 g/dL Albumin 4.9 H 3.2-4.8 g/dL Lipase 44 12-53 U/L Urine Color Yellow Yellow Urine Clarity Clear Clear Urine pH 5.5 5.0-9.0 Urine Specific [place] 1.026 1.001-1.035 Urine Protein Negative Negative Urine Ketones Negative Negative Urine Blood Negative Negative /uL Urine Nitrite Negative Negative Urine Bilirubin Negative Negative Urine Urobilinogen 2 H Negative mg/dL Urine Leukocyte Esterase Negative Negative /uL Urine RBC <1 0 - 3 /hpf Urine Microscopic WBC 0-3 /HPF Urine Squamous Epithelial Cells None seen <5 /hpf Urine Bacteria None seen None Seen /hpf Urine Mucus Few None Seen Urine Glucose Normal Normal mg/dL Urine Opiates Screen Neg NEGATIVE Urine Fentanyl Screen Neg NEGATIVE Urine Barbiturates Screen Neg NEGATIVE Urine Phencyclidine Screen Neg NEGATIVE Urine Amphetamines Screen Neg NEGATIVE Urine Benzodiazepines Screen Neg NEGATIVE Urine Cocaine Screen Pos NEGATIVE Urine Cannabinoids Screen Neg NEGATIVE IMPRESSION: 1. Findings suggest uncomplicated sigmoid diverticulitis. Assessment 1. GI bleed 2. Sigmoid diverticulitis Diverticulitis is uncomplicated and the patient is already feeling better. Problems(with codes): (1) Hematochezia (2) Acute diverticulitis Plan/Recommendation 1. Antibiotics 2. Consider outpatient follow-up and discharge home with outpatient colonoscopy 3. Soft diet as tolerated 4. Pain control Plan discussed with: Patient NICK GREENFIELD MD Nov 06, 2024 14:00
[2024-11-07 01:00] VITALS: BP 120/88; PULSE 87; RESP 16; TEMP 98.4; O2SAT 97
[2024-11-07 05:00] VITALS: BP 129/85; PULSE 86; RESP 17; TEMP 98.1; O2SAT 95
[2024-11-07 09:00] VITALS: BP 128/88; PULSE 86; RESP 17; TEMP 98; O2SAT 95
[2024-11-07 09:38] LABS: Basophils # (auto) 0 10 ^3/uL (0-0.2); Basophils % (auto) 0.6 % (0.0-2.0); Eosinophils # (auto) 0.3 10 ^3/uL (0-0.8); Hematocrit 43.3 % (41.0-53.0); Hemoglobin 14.6 g/dL (13.5-17.5); Lymphocytes # (auto) 2.1 10 ^3/uL (0.4-5.4); Lymphocytes % (auto) 24.7 % (10.0-50.0); Mean Corpuscular Hemoglobin 30.6 pg (28.0-32.0); Mean Corpuscular Hgb Conc. 33.6 g/dL (32.0-36.0); Mean Corpuscular Volume 90.9 fL (80.0-100.0); Monocytes % (auto) 12.2 % (0.0-12.0); Neutrophils % (auto) 58.5 % (37.0-80.0); Nucleated Red Blood Cells % 0.1 %; Platelet Count (auto) 244 10^3/uL (140-450); Red Blood Cells 4.76 10^6/uL (4.5-5.90); Red Cell Distribution Width 12.9 % (11.8-14.3); White Blood Cell 8.5 10^3/uL (4.4-10.8)
[2024-11-07 09:46] LABS: Sodium 142 mmol/L (136-145)
[2024-11-07 09:47] LABS: Anion Gap 9 (5-15); Calcium 9.3 mg/dL (8.7-10.4); Carbon Dioxide 26 mmol/L (20-31)
[2024-11-07 09:52] LABS: BUN/Creatinine Ratio 10.5 (10.0-20.0)
[2024-11-07 10:02] LABS: Blood Urea Nitrogen 8 mg/dL (9-23); Chloride 107 mmol/L (98-107); Glucose 149 mg/dL (74-106)
[2024-11-07 13:02] VITALS: BP 123/84; PULSE 78; RESP 18; TEMP 97.7; O2SAT 95
[2024-11-07] MEDS ORDERED: NALO4SPR2 (14:47)
[2024-11-07] MEDS ORDERED: HYDR-4902 PO (14:47)
[2024-11-07] MEDS ORDERED: DOXY100C79 PO (14:47)
[2024-11-07] MEDS ORDERED: METR-344 PO (14:47)
--- NOTE | 2024-11-07 14:52 | DVHDS2 ---
Discharge Summary Date of Admission Nov 05, 2024 at 23:27 Date of Discharge: Nov 07, 2024 Labs/Diagnostic Data: Laboratory Results Test 11/07/24 09:20 11/06/24 09:00 11/05/24 19:39 11/05/24 00:00 White Blood Count 8.5 10^3/uL (4.4-10.8) Red Blood Count 4.76 10^6/uL (4.5-5.90) Hemoglobin 14.6 g/dL (13.5-17.5) Hematocrit 43.3 % (41.0-53.0) Mean Corpuscular Volume 90.9 fL (80.0-100.0) Mean Corpuscular Hemoglobin 30.6 pg (28.0-32.0) Mean Corpuscular Hemoglobin Concent 33.6 g/dL (32.0-36.0) Red Cell Distribution Width 12.9 % (11.8-14.3) Platelet Count 244 10^3/uL (140-450) Mean Platelet Volume 7.8 fL (6.9-10.8) Neutrophils (%) (Auto) 58.5 % (37.0-80.0) Lymphocytes (%) (Auto) 24.7 % (10.0-50.0) Monocytes (%) (Auto) 12.2 % (0.0-12.0) Eosinophils (%) (Auto) 4.0 % (0.0-7.0) Basophils (%) (Auto) 0.6 % (0.0-2.0) Neutrophils # (Auto) 5.0 10 ^3/uL (1.6-8.6) Lymphocytes # (Auto) 2.1 10 ^3/uL (0.4-5.4) Monocytes # (Auto) 1.0 10 ^3/uL (0-1.3) Eosinophils # (Auto) 0.3 10 ^3/uL (0-0.8) Basophils # (Auto) 0 10 ^3/uL (0-0.2) Nucleated Red Blood Cells 0.1 % Sodium Level 142 mmol/L (136-145) Potassium Level 4.0 mmol/L (3.5-5.1) Chloride Level 107 mmol/L (98-107) Carbon Dioxide Level 26 mmol/L (20-31) Anion Gap 9 (5-15) Blood Urea Nitrogen 8 mg/dL (9-23) Creatinine 0.76 mg/dL (0.700-1.30) Glomerular Filtration Rate Calc 114 mL/min (>90) BUN/Creatinine Ratio 10.5 (10.0-20.0) Serum Glucose 149 mg/dL (74-106) Calcium Level 9.3 mg/dL (8.7-10.4) Stool Occult Blood Negative (Negative) Stool Occult Blood Sample #3 (Negative) Lactic Acid Level 1.3 mmol/L (0.4-2.0) Total Bilirubin 0.7 mg/dL (0.2-1.0) Aspartate Amino Transferase (AST) 10 U/L (13-40) Alanine Aminotransferase (ALT) 16 U/L (7-40) Alkaline Phosphatase 91 U/L (46-116) Total Protein 7.5 g/dL (5.7-8.2) Albumin 4.9 g/dL (3.2-4.8) Lipase 44 U/L (12-53) Urine Color Yellow (Yellow) Urine Clarity Clear (Clear) Urine pH 5.5 (5.0-9.0) Urine Specific [place] 1.026 (1.001-1.035) Urine Protein Negative (Negative) Urine Ketones Negative (Negative) Urine Blood Negative /uL (Negative) Urine Nitrite Negative (Negative) Urine Bilirubin Negative (Negative) Urine Urobilinogen 2 mg/dL (Negative) Urine Leukocyte Esterase Negative /uL (Negative) Urine RBC <1 /hpf (0 - 3) Urine Microscopic WBC /HPF (0-3) Urine Squamous Epithelial Cells None seen /hpf (<5) Urine Bacteria None seen /hpf (None Seen) Urine Mucus Few (None Seen) Urine Glucose Normal mg/dL (Normal) Urine Opiates Screen Neg (NEGATIVE) Urine Fentanyl Screen Neg (NEGATIVE) Urine Barbiturates Screen Neg (NEGATIVE) Urine Phencyclidine Screen Neg (NEGATIVE) Urine Amphetamines Screen Neg (NEGATIVE) Urine Benzodiazepines Screen Neg (NEGATIVE) Urine Cocaine Screen Pos (NEGATIVE) Urine Cannabinoids Screen Neg (NEGATIVE) Other Laboratory Tests 11/07/24 09:20 Brief Hx & Hospital Course: 43-year-old male without any pertinent medical history presents with complaints of abdominal pain x3 days. Abdominal pain intermittent and sharp 8/10. Pain radiating from rectum. Patient also endorses blood in stool. During the emergency department evaluation W 14, H and H 16.6/49.3, PLT 296. CMP unremarkable. UDS was positive for cocaine. CT of the abdomen and pelvis demonstrates acute diverticulitis. At this time patient denies fevers, chills, shortness of breath, chest pain, nausea, vomiting. He is admitted and CT of the abdomen and pelvis showed a acute colitis therefore treated with IV antibiotics. Patient's pain has improved. His diet is advanced and which he is tolerating without significant problems. No further nausea vomiting or pain. His white cell count is normal. Afebrile. Apparently his father is hospitalized with a cancer and would like to visit him does requesting to be discharged home given he is clinically feeling better normal status. I have advised the patient to continue full liquid to soft diet for next 2-3 days at home. Advised to take the oral antibiotics as he is prescribed. He is also advised to follow up with the PCP and have referral to [facility] for elective colonoscopy after 4-6 weeks. Patient verbalized understanding of this, verbalized understanding his hospital diagnosis, treatment he received, discharge medications, discharge instructions and agree with the follow up plan of care as mentioned. Operations or Procedures Exam: CT CT AB PEL WO CON-NO ORAL OR IV History: abd pain Comparison Study: None available at time of dictation. TECHNIQUE: Multidetector CT of the abdomen was performed from lung bases to pubic symphysis. Imaging was performed without IV contrast. Axial, coronal and sagittal multiplanar reformats were obtained from the axial data set by the technologist. Radiation Dose Information: CT Dose: CTDI volume is 17.28 mGy. Dose-length product is 1030.9 mGy*cm FINDINGS: Evaluation of solid organs is limited due to lack of intravenous contrast use. Findings: Lung Bases: No acute or significant lung base finding. Normal heart size. No pleural or pericardial effusion. Liver: The liver is normal in size. No focal lesions. Gallbladder and Biliary Tree: Unremarkable Spleen: Unremarkable Pancreas: The pancreas is grossly normal in appearance. Adrenal Glands: Unremarkable Kidneys: Kidneys are grossly normal without calculi or hydronephrosis. Bladder: Grossly unremarkable for degree of distention. Bowel: The stomach is grossly normal in appearance. Small bowel and colon are normal in caliber and distribution. Diverticulosis with A concentrated area of diverticuli in the sigmoid colon 4 there is pericolonic stranding suggesting inflammatory changes and acute diverticulitis. There is no free air or free fluid. The appendix is not visualized; however, no secondary findings of acute appendicitis identified. Ascites: Absent Lymphadenopathy: No mesenteric, retroperitoneal or periportal lymphadenopathy. Abdominal Wall and Mesentery: Unremarkable. Vasculature: The visualized abdominal aorta is normal in size and caliber. Evaluation of abdominal and pelvic vessels is limited due to lack of intravenous contrast. Pelvic Organs: Unremarkable Musculoskeletal: No aggressive focal bony lesions, acute fractures or dislocation. Soft tissues: Unremarkable IMPRESSION: 1. Findings suggest uncomplicated sigmoid diverticulitis. Radiation optimization: All CT scans at this facility use at least one of these dose optimization techniques: automated exposure control mA and/or kV adjustment per patient size (includes targeted exams where dose is matched to clinical indication) or iterative reconstruction. Condition at Discharge: Stable Final Diagnosis/Problems List acute sigmoid diverticulits Discharge Disposition: Home Discharge Instruct/Medications Diet: See Comment Diet comment: Full Liquid diet for next 3 days then regular diet as tolerated Activity: No Restrictions, As Tolerated Activity comment: no driving or operating machinery while taking norcotics for pain Follow Up/Referral: PCP next week for diverticulitis and referral to [facility] for elective colonoscopy in 4-6 weeks Medications: as prescribed New Medications: Doxycycline (Monohydrate) (Doxycycline) 100 Mg Cap 100 MG PO BID, #14 CAP Hydrocodone-Acetaminophen (Hydrocodone Bitartrate/AC 5-325 mg) 1 Tab Tab 1 TAB PO Q6HPRN PRN, #14 TAB Metronidazole (Flagyl) 500 Mg Tab 1 TAB PO TID, #30 TAB Naloxone HCl (Narcan) 4 Mg/0.1 Ml Spr 4 MG NA Q5MINP PRN, #1 SPRAY Continued Medications: Promethazine-Dm (Promethazine Dm 6.25-15 mg/5Ml) 1 Marielena Marielena 1 MARIELENA PO TID, #180 ML Discontinued Medications: Azithromycin (Azithromycin) 500 Mg Tab 500 MG PO DAILY for 7 Days, #7 TAB Ibuprofen (Ibuprofen) 800 Mg Tab 800 MG PO Q8HP PRN, #30 TAB Discharge Statement: "Patient was advised to return to the ER or call 911 if any headaches, dizziness, shortness of breath, chest pain, abdominal pain, bleeding, fevers, or worsening of medical condition. Patient was counseled about treatment plan, medications, possible side effects, patientverbalized understanding. All questions were answered to the best of my ability. This discharge took greater then 30 minutes in planning, reviewing documentation, counseling the patient, and discussing with other team members." ASSESSMENT ASSESSMENT Assessment acute sigmoid diverticulits AMAN SLOAN MD Nov 07, 2024 14:52
[2024-11-07 17:00] VITALS: BP 136/84; PULSE 70; RESP 18; TEMP 98.1; O2SAT 96
== END 2024-11-07 18:41 | disposition home or self-care (01) | DRG 378 ==
LOC: ER 19:07 → OVERFLOW 23:27 → WEST WING 11-06 15:32
PROVIDERS: ADMIT Nurse Practitioner Family; ATTEND Nurse Practitioner Family
DX: K57.33 Diverticulitis of large intestine without perforation or abscess with bleeding (principal); R65.10 Systemic inflammatory response syndrome (SIRS) of non-infectious origin without acute organ dysfunction; F14.90 Cocaine use, unspecified, uncomplicated; F17.210 Nicotine dependence, cigarettes, uncomplicated; Z88.0 Allergy status to penicillin; Z79.2 Long term (current) use of antibiotics; Z79.1 Long term (current) use of non-steroidal anti-inflammatories (NSAID); Z79.899 Other long term (current) drug therapy
CPT/HCPCS: 36415; 74176; 80048; 80053; 80307; 81001; 82270; 83605; 83690; 85025; 87040; 96361; 96365; 96368; 99291; G0378; J1956; J2470; J3490

== ENCOUNTER 2025-03-29 21:31 | Emergency (ER) | payer OTHER ==
[~2025-03-29] VITALS: Ht 185.4 cm; Wt 91.0 kg
[~2025-03-29 21:31] MED LIST changes: -AZIT500T66 PO; +DOXY100C79 PO; +HYDR-4902 PO; -IBUP-1456 PO; +METR-344 PO; +NALO4SPR2
[2025-03-29 21:33] VITALS: BP 137/104; PULSE 105; RESP 20; TEMP 98; O2SAT 96
== END 2025-03-29 22:10 | disposition left against medical advice (07) ==
LOC: ER 21:31
DX: R41.82 Altered mental status, unspecified (principal); Z53.21 Procedure and treatment not carried out due to patient leaving prior to being seen by health care provider

== ENCOUNTER 2025-05-02 01:19 | Emergency (ER) | payer OTHER ==
[~2025-05-02] VITALS: Ht 177.8 cm; Wt 91.3 kg
[2025-05-02 01:20] VITALS: BP 141/68; PULSE 114; RESP 20; TEMP 98.5; O2SAT 97
[2025-05-02 02:28] LABS: Hematocrit 49.4 % (41.0-53.0); Hemoglobin 17.0 g/dL (13.5-17.5); Mean Corpuscular Hemoglobin 31.7 pg (28.0-32.0); Mean Corpuscular Volume 92.0 fL (80.0-100.0); Nucleated Red Blood Cells % 0.3 %
[2025-05-02 02:49] LABS: Alanine Aminotransferase 23 U/L (7-40); Albumin 4.7 g/dL (3.2-4.8); Alkaline Phosphatase 81 U/L (46-116); Anion Gap 9 (5-15); BUN/Creatinine Ratio 10.5 (10.0-20.0); Bilirubin, Total 0.4 mg/dL (0.2-1.0); Calcium 9.5 mg/dL (8.7-10.4); Carbon Dioxide 23 mmol/L (20-31); Chloride 106 mmol/L (98-107); Potassium 3.7 mmol/L (3.5-5.1); Sodium 138 mmol/L (136-145); Total Protein 7.6 g/dL (5.7-8.2)
[2025-05-02 02:57] LABS: Blood Urea Nitrogen 9 mg/dL (9-23); Glucose 118 mg/dL (74-106)
--- NOTE | 2025-05-02 03:44 | DVH ---
Exam: CT CT AB PEL WITH IV CON ONLY History: GI Bleed, Melena BRBPR COMPARISON: None Technique: Multidetector spiral CT of the abdomen and pelvis was performed from lung bases to pubic s ymphysis. Intravenous contrast was administered during this examination. Portal venous imaging was o btained. Axial, coronal and sagittal multiplanar reformats were performed by the technologist on a [employer] workstation. Radiation Dose : 1. Abdomen/Pelvis: CTDIvol 19 mGy, DLP 957 mGy*cm. Findings: Lower Chest: No acute findings. Liver: Multiple subcentimeter hypodense lesions too small to further characterize. Background parench ymal hypoenhancement relative to the spleen. Gallbladder and Biliary Tree: Unremarkable Pancreas: Unremarkable. Spleen: Unremarkable Adrenal Glands: Unremarkable Kidneys: Normal. Bladder: Incompletely distended without evident abnormality. Pelvic Organs: Unremarkable Bowel: The distal esophagus, stomach, duodenum and small bowel are unremarkable. The appendix is no t visualized and may be surgically absent. Descending and sigmoid colonic diverticulosis with mild wa ll prominence from the splenic flexure through the mid sigmoid colon. No evidence of intraluminal co ntrast. Vasculature: Unremarkable. Lymphadenopathy: No evident adenopathy. Peritoneum: No ascites, free air, or fluid collection. Abdominal Wall: No significant hernia. Musculoskeletal: No acute findings. Bilateral L5 pars defects with spondylolisthesis and spondylosis . Other milder degenerative changes of the spine and pelvis. IMPRESSION: 1. Colonic diverticulosis with mild segmental wall thickening of the descending and proximal sigmoid colon, suspicious for mild colitis or diverticulitis. No evidence of intraluminal contrast to localiz e acute bleeding. Consider colonoscopy. 2. Subcentimeter hepatic lesions too small to further characterize, recommend outpatient follow-up. Radiation optimization: All CT scans at this facility use at least one of these dose optimization sneha hniques: automated exposure control mA and/or kV adjustment per patient size (includes targeted exam s where dose is matched to clinical indication) or iterative reconstruction.
--- NOTE | 2025-05-02 03:55 | ED.PDOC ---
History of Present Illness HPI Comments 44 y/o M presents with son for c/c generalized weakness and fatigue secondary to 3 month and 3 week history of melena stools and recent rectal bleeding with diarrhea, respectively. Significant history for diverticulitis and polysubstance abuse. Denies any abdominal pain, nausea, vomiting, lightheadedness, dizziness, shortness of breath, or further associated symptoms. Patient was advised to have colonoscopy 7 months ago however he refused procedure. He reports history of cocain use, smoking and frequent alcohol use. REVIEW OF SYSTEMS: General: No fever, no chills, HEENT: No neck pain, no blurred vision Cardiac: No chest pain. No palpitations. Lungs: No shortness of breath, GI: Melena stool. Rectal bleeding. Diarrhea. No abdominal pain, no vomiting Musculoskeletal: No joint pain , no back pain Skin: No rash, no wound Neuro: Generalized weakness and fatigue. No headache, no dizziness, no syncope PHYSICAL EXAM: General: Awake, alert and oriented. No acute distress. Skin: Skin in warm, dry and intact without rashes or lesions. HEENT: The head is normocephalic and atraumatic. Conjunctivae are clear without exudates or hemorrhage. Sclera is non-icteric. Neck: Normal range of motion. No JVD. Cardiac: Regular rate Rectal: no hemorrhoids, anal tenderness, or active bleeding Respiratory: No signs of respiratory distress. No Stridor. Extremities: Upper and lower extremities are atraumatic in appearance without deformity. Neurological: The patient is awake, alert and oriented to person, place, and time with normal speech. Speech is clear. There is no facial asymmetry. Psychiatric: Appropriate mood and affect. Good judgement and insight. Chief Complaint: GI Bleed Time Seen by MD: 01:40 Primary Care Provider: WALTER PMCodie Allergies: Coded Allergies: Penicillins (Verified Allergy, Unknown, 02/22/20) Home Meds Active Scripts Naloxone HCl (Narcan) 4 Mg/0.1 Ml Spr, 4 MG NA Q5MINP PRN, #1 SPRAY Prov:AMAN SLOAN MD 11/07/24 Hydrocodone-Acetaminophen (Hydrocodone Bitartrate/AC 5-325 mg) 1 Tab Tab, 1 TAB PO Q6HPRN PRN, #14 TAB Prov:AMAN SLOAN MD 11/07/24 Metronidazole (Flagyl) 500 Mg Tab, 1 TAB PO TID, #30 TAB Prov:AMAN SLOAN MD 11/07/24 Doxycycline (Monohydrate) (Doxycycline) 100 Mg Cap, 100 MG PO BID, #14 CAP Prov:AMAN SLOAN MD 11/07/24 Promethazine-Dm (Promethazine Dm 6.25-15 mg/5Ml) 1 Marielena Marielena, 1 MARIELENA PO TID, #180 ML Prov:MIKALA GARCES 10/25/21 Information Source: Patient Mode of Arrival: Ambulatory Past Medical History Past Medical History (Other): acute sigmoid diverticulitis PTSD ADHD Surgical History: Appendectomy, Tonsillectomy Family History Family History: Reviewed,noncontributory to illness Social History Smoker: Cigarettes Alcohol: Occasionally Drugs: Cocaine Lives In: Home Was a procedure done? Was a procedure done?: No Differential Dx Considerations may include: Differential diagnoses considered include but are not limited to sepsis, CVA, ACS, PE, stroke, ICH, adrenal insufficiency, viral syndrome, thyroid storm, my xedema coma , DKA, HHS, hypoglycemia, anemia, GI bleeding, renal failure, dehydration, hepatic failure, electrolyte imbalance, carbon monoxide poisoning, malignancy, UTI, other. X-Ray, Labs, Meds, VS Vital Signs Date Time Temp Pulse Resp B/P (MAP) Pulse Ox O2 Delivery O2 Flow Rate FiO2 05/02/25 01:20 98.5 114 20 141/68 97 98.5 Lab Test 05/02/25 02:14 Range/Units White Blood Count 9.2 4.4-10.8 10^3/uL Red Blood Count 5.37 4.5-5.90 10^6/uL Hemoglobin 17.0 13.5-17.5 g/dL Hematocrit 49.4 41.0-53.0 % Mean Corpuscular Volume 92.0 80.0-100.0 fL Mean Corpuscular Hemoglobin 31.7 28.0-32.0 pg Mean Corpuscular Hemoglobin Concent 34.5 32.0-36.0 g/dL Red Cell Distribution Width 12.6 11.8-14.3 % Platelet Count 255 140-450 10^3/uL Mean Platelet Volume 8.5 6.9-10.8 fL Neutrophils (%) (Auto) 55.6 37.0-80.0 % Lymphocytes (%) (Auto) 27.8 10.0-50.0 % Monocytes (%) (Auto) 12.1 H 0.0-12.0 % Eosinophils (%) (Auto) 3.5 0.0-7.0 % Basophils (%) (Auto) 1.0 0.0-2.0 % Neutrophils # (Auto) 5.1 1.6-8.6 10 ^3/uL Lymphocytes # (Auto) 2.6 0.4-5.4 10 ^3/uL Monocytes # (Auto) 1.1 0-1.3 10 ^3/uL Eosinophils # (Auto) 0.3 0-0.8 10 ^3/uL Basophils # (Auto) 0.1 0-0.2 10 ^3/uL Nucleated Red Blood Cells 0.3 % Sodium Level 138 136-145 mmol/L Potassium Level 3.7 3.5-5.1 mmol/L Chloride Level 106 98-107 mmol/L Carbon Dioxide Level 23 20-31 mmol/L Anion Gap 9 5-15 Blood Urea Nitrogen 9 9-23 mg/dL Creatinine 0.86 0.700-1.30 mg/dL Glomerular Filtration Rate Calc 110 >90 mL/min BUN/Creatinine Ratio 10.5 10.0-20.0 Serum Glucose 118 H 74-106 mg/dL Lactic Acid Level 1.7 0.4-2.0 mmol/L Calcium Level 9.5 8.7-10.4 mg/dL Total Bilirubin 0.4 0.2-1.0 mg/dL Aspartate Amino Transferase (AST) 19 13-40 U/L Alanine Aminotransferase (ALT) 23 7-40 U/L Alkaline Phosphatase 81 46-116 U/L Troponin I High Sensitivity 3 L </=54 ng/L Total Protein 7.6 5.7-8.2 g/dL Albumin 4.7 3.2-4.8 g/dL [address] [address] Ph: [phone] DIAGNOSTIC IMAGING Diagnostic Imaging Report : [id number] Signed PATIENT: LAILA PUENTES ACCT: [id number] UNIT: [id number] : 1980 LOC: ER ROOM / BED: / AGE / SEX: 44 / M ADM STATUS: REG ER SERVICE 0147 ORDERING PHYSICIAN: PRINCE MILNER MD PROCEDURE(s): ABPLIV - CT AB PEL WITH IV CON ONLY REASON: GI Bleed, Melena & BRBPR ORDER NUMBER(s): [id number], ACCESSION NUMBER(s): [id number] Exam: CT CT AB PEL WITH IV CON ONLY History: GI Bleed, Melena BRBPR COMPARISON: None Technique: Multidetector spiral CT of the abdomen and pelvis was performed from lung bases to pubic symphysis. Intravenous contrast was administered during this examination. Portal venous imaging was obtained. Axial, coronal and sagittal multiplanar reformats were performed by the technologist on a separate workstation. Radiation Dose : 1. Abdomen/Pelvis: CTDIvol 19 mGy, DLP 957 mGy*cm. Findings: Lower Chest: No acute findings. Liver: Multiple subcentimeter hypodense lesions too small to further characterize. Background parenchymal hypoenhancement relative to the spleen. Gallbladder and Biliary Tree: Unremarkable Pancreas: Unremarkable. Spleen: Unremarkable Adrenal Glands: Unremarkable Kidneys: Normal. Bladder: Incompletely distended without evident abnormality. Pelvic Organs: Unremarkable Bowel: The distal esophagus, stomach, duodenum and small bowel are unremarkable. The appendix is not visualized and may be surgically absent. Descending and sigmoid colonic diverticulosis with mild wall prominence from the splenic flexure through the mid sigmoid colon. No evidence of intraluminal contrast. Vasculature: Unremarkable. Lymphadenopathy: No evident adenopathy. Peritoneum: No ascites, free air, or fluid collection. Abdominal Wall: No significant hernia. Musculoskeletal: No acute findings. Bilateral L5 pars defects with spondylol isthesis and spondylosis. Other milder degenerative changes of the spine and pelvis. IMPRESSION: 1. Colonic diverticulosis with mild segmental wall thickening of the descending and proximal sigmoid colon, suspicious for mild colitis or diverticulitis. No evidence of intraluminal contrast to localize acute bleeding. Consider colonoscopy. 2. Subcentimeter hepatic lesions too small to further characterize, recommend outpatient follow-up. Radiation optimization: All CT scans at this facility use at least one of these dose optimization techniques: automated exposure control mA and/or kV adjustment per patient size (includes targeted exams where dose is matched to clinical indication) or iterative reconstruction. ATED BY: SHABANA ROSE MD DICTATED DATE/TIME: 05/02/25340 SIGNED BY: SHABANA ROSE MD SIGNED DATE/TIME: 05/02/25340 CC: Time of 1ST Reevaluation: 02:15 Reevaluation 1ST: Unchanged Patient Education/Counseling: Other (Need for admission) Family Education/Counseling: No Family Present SEPSIS Sepsis Screen Date sepsis recognized/suspect: May 02, 2025 Time Sepsis recognized/suspect: 012 Recent Procedure: No On Antibiotic Therapy: No Respiratory Rate >20: No Heart Rate >90: Yes Temp<36 C (96.8 F) or >38.3 C: No SBP <90 or MAP <65 mmHG: No New Acute Mental Status Change: No Is the patient on CPAP, BIPAP,: No Physician Orders Urinalysis (05/02/25 01:47) Stool Occult Blood (05/02/25 01:47) Ct Ab Pel With Iv Con Only (05/02/25 01:47) Electrocardigram (05/02/25 01:47) Vital Signs Date Time Temp Pulse Resp B/P (MAP) Pulse Ox O2 Delivery O2 Flow Rate FiO2 05/02/25 01:20 98.5 114 20 141/68 97 98.5 Laboratory Tests Test 05/02/25 02:14 Lactic Acid Level 1.7 mmol/L (0.4-2.0) White Blood Count 9.2 10^3/uL (4.4-10.8) Departure 1 Departure Time of Disposition: 04:47 Impression: Primary Impression: Fatigue Additional Impressions: GI bleed Hepatic lesion Disposition: HOME / SELF CARE / HOMELESS Condition: Stable Additional Instructions: ED DISCHARGE INSTRUCTIONS Instructions: Please read all instructions provided in this packet carefully. Although you have been discharged from the Emergency Department, this does not mean that you have a "clean bill of health". []No definitive diagnosis for your symptoms has been made today. It is possible that you are in the process of developing a serious illness. This is why you must return to the ED without fail if any new or worsening symptoms (especially if your symptoms include chest pain, trouble breathing, abdominal pain, fever, headache, confusion, trouble seeing, or trouble walking) It is also very important that you see a primary care provider (PCP) within the next 1-3 days to follow up. Call to have colonoscopy rescheduled. If you are unable to get an appointment, return to the ED for re-evaluation. A copy of your CT scan results is included below. Gastrointestinal Bleeding: Care Instructions Overview The digestive or gastrointestinal tract goes from the mouth to the anus. It is often called the GI tract. Bleeding can happen anywhere in the GI tract. It may be caused by an ulcer, an infection, or cancer. It may also be caused by medicines such as aspirin or ibuprofen. Light bleeding may not cause any symptoms at first. But if you continue to bleed for a while, you may feel weak or tired. Sudden, heavy bleeding means you need to see a doctor right away. The doctor may do some tests to find the cause of your bleeding. Treatment is needed to control the bleeding and treat the cause of the bleeding. Follow-up care is a aragon part of your treatment and safety. Be sure to make and go to all appointments, and call your doctor if you are having problems. It's also a good idea to know your test results and keep a list of the medicines you take. How can you care for yourself at home? Be safe with medicines. Take your medicines exactly as prescribed. Call your doctor if you think you are having a problem with your medicine. You will get more details on the specific medicines your doctor prescribes. Do not take blood thinners, aspirin, or other anti-inflammatory medicines, such as naproxen (Aleve) or ibuprofen (Advil, Motrin), without talking to your doctor first. Do not drink alcohol. The bleeding may increase your risk for a low red blood cell count (anemia). When should you call for help? Call 911 anytime you think you may need emergency care. For example, call if: You have sudden, severe belly pain. You vomit blood or what looks like coffee grounds. You passed out (lost consciousness). Your stools are maroon or very bloody. Call your doctor now or seek immediate medical care if: You are dizzy or lightheaded, or you feel like you may faint. Your stools are black and look like tar, or they have streaks of blood. You have belly pain. You vomit or have nausea. You have trouble swallowing, or it hurts when you swallow. Watch closely for changes in your health, and be sure to contact your doctor if: You do not get better as expected. Credits for Gastrointestinal Bleeding: Care Instructions Current as of: June 04, 2023 Author: [employer] Staff Clinical Review Board All [employer] education is reviewed by a team that includes physicians, nurses, advanced practitioners, registered dieticians, and other healthcare professionals. CAT SCAN RESULTS: PROCEDURE(s): ABPLIV - CT AB PEL WITH IV CON ONLY REASON: GI Bleed, Melena & BRBPR ORDER NUMBER(s): [id number], ACCESSION NUMBER(s): [id number] Exam: CT CT AB PEL WITH IV CON ONLY History: GI Bleed, Melena BRBPR COMPARISON: None Technique: Multidetector spiral CT of the abdomen and pelvis was performed from lung bases to pubic symphysis. Intravenous contrast was administered during this examination. Portal venous imaging was obtained. Axial, coronal and sagittal multiplanar reformats were performed by the technologist on a separate workstation. Radiation Dose : 1. Abdomen/Pelvis: CTDIvol 19 mGy, DLP 957 mGy*cm. Findings: Lower Chest: No acute findings. Liver: Multiple subcentimeter hypodense lesions too small to further characterize. Background parenchymal hypoenhancement relative to the spleen. Gallbladder and Biliary Tree: Unremarkable Pancreas: Unremarkable. Spleen: Unremarkable Adrenal Glands: Unremarkable Kidneys: Normal. Bladder: Incompletely distended without evident abnormality. Pelvic Organs: Unremarkable Bowel: The distal esophagus, stomach, duodenum and small bowel are unremarkable. The appendix is not visualized and may be surgically absent. Descending and sigmoid colonic diverticulosis with mild wall prominence from the splenic flexure through the mid sigmoid colon. No evidence of intraluminal contrast. Vasculature: Unremarkable. Lymphadenopathy: No evident adenopathy. Peritoneum: No ascites, free air, or fluid collection. Abdominal Wall: No significant hernia. Musculoskeletal: No acute findings. Bilateral L5 pars defects with spondylolisthesis and spondylosis. Other milder degenerative changes of the spine and pelvis. IMPRESSION: 1. Colonic diverticulosis with mild segmental wall thickening of the descending and proximal sigmoid colon, suspicious for mild colitis or diverticulitis. No evidence of intraluminal contrast to localize acute bleeding. Consider colonoscopy. 2. Subcentimeter hepatic lesions too small to further characterize, recommend outpatient follow-up. Radiation optimization: All CT scans at this facility use at least one of these dose optimization techniques: automated exposure control mA and/or kV adjustment per patient size (includes targeted exams where dose is matched to clinical indication) or iterative reconstruction. ATED BY: SHABANA ROSE MD DICTATED DATE/TIME: 05/02/25 0341 Comments MDM: 44 year old male with melena and reported BRBPR NO active bleeding on exam Patient is hemodynamically stable Discussed results with patient Advised f/u with PCP for further evaluation. Extensive evaluation was performed in attempt to identify or rule out: (See differential diagnosis section) The following tests were ordered, and results were reviewed by me and discussed with patient: (See diagnostic results section) The following test were independently interpreted by me: N/A I reviewed the following test results read by other providers: CT abdomen and pelvis with IV contrast. I reviewed the following notes from the pt's past medical encounters: November 05, 2024 encounter for acute diverticulitis Decision regarding hospitalization or escalation of hospital level of care: Risks and benefits of admission for further treatment of patient's condition was considered however due to patient's stable condition patient will be discharged to follow up closely or return to care for worsening of condition or inability to follow up. Critical Care Note Critical Care Time?: No Stability Stability form required: No Heart Score Heart Score: Heart Score Response (Comments) Value History N/A 0 EKG N/A 0 Age N/A 0 Risk Factors N/A 0 Troponin N/A 0 Total 0 I personally scribed for PRINCE MILNER MD ([email or web address]) on 05/02/25 at 03:55. Electronically submitted by Moreno Ye ([email or web address]). PRINCE MILNER MD May 02, 2025 03:55
[2025-05-02] MEDS: IOHEXOL 300 MG/ML 100ML BOTTLE IJ ONE (05:25)
[2025-05-02] MEDS: PANTOPRAZOLE 40 MG/10 ML VIAL INJ IV ONE (05:31)
== END 2025-05-02 05:34 | disposition home or self-care (01) ==
LOC: ER 01:19
DX: K92.2 Gastrointestinal hemorrhage, unspecified (principal); K76.9 Liver disease, unspecified; R53.83 Other fatigue; F17.210 Nicotine dependence, cigarettes, uncomplicated; Z88.0 Allergy status to penicillin; Z90.49 Acquired absence of other specified parts of digestive tract; Z90.89 Acquired absence of other organs
CPT/HCPCS: 36415; 74177; 80053; 83605; 84484; 85025; 96374; 99285; J2470; Q9967

== ENCOUNTER 2025-06-06 23:50 | Inpatient (IN) | payer OTHER ==
[~2025-06-06] VITALS: Ht 185.4 cm; Wt 94.1 kg
[2025-06-07] MEDS: IOHEXOL 300 MG/ML 100ML BOTTLE IJ ONE (00:52)
[2025-06-07 00:59] LABS: Nucleated Red Blood Cells % 0.1 %
[2025-06-07 01:01] LABS: Hematocrit 52.4 % (41.0-53.0); Hemoglobin 18.0 g/dL (13.5-17.5); Mean Corpuscular Hemoglobin 31.5 pg (28.0-32.0); Mean Corpuscular Volume 92.0 fL (80.0-100.0)
--- NOTE | 2025-06-07 01:12 | DVH ---
Exam: CT CT AB PEL WITH IV CON ONLY History: rectal bleed Comparison Study: CT CT AB PEL WITH IV CON ONLY on DOS: 05/02/25, CT CT AB PEL WO CON-NO ORAL OR IV on DOS: 11/05/24 TECHNIQUE: A digital timber surveyor image was obtained. During the uneventful, intravenous administration of c ontrast material, multislice data acquisition was obtained through the abdomen and pelvis. The data s et was subsequently reconstructed into multiplanar reformats. RADIATION DOSE: CTDI vol 21.9 mGy. DLP 1194.46 mGy.cm Findings: Lungs: The lung bases are clear. Liver: Too small to characterize hepatic lesions. Spleen: Unremarkable. Pancreas: Unremarkable. Gallbladder: Unremarkable. Adrenals: Unremarkable Kidneys: Unremarkable. Pelvic Viscera: Unremarkable. Vasculature: Unremarkable. Retroperitoneum: Unremarkable. Bowel: Colonic diverticulosis without CT evidence of diverticulitis. No bowel obstruction. Musculoskeletal: Grade 1 anterolisthesis of L5 on S1 on the basis of bilateral pars defects. Soft tissues: Unremarkable Impression: 1. Colonic diverticulosis without definite CT evidence of acute diverticulitis. 2. Unchanged additional findings as detailed.
[2025-06-07 01:14] LABS: Lactic Acid w/Reflex 3.3 mmol/L (0.4-2.0)
[2025-06-07 01:18] LABS: Alanine Aminotransferase 21 U/L (7-40); Alkaline Phosphatase 100 U/L (46-116); Anion Gap 10 (5-15); BUN/Creatinine Ratio 9.5 (10.0-20.0); Bilirubin, Total 0.8 mg/dL (0.2-1.0); Blood Urea Nitrogen 9 mg/dL (9-23); Calcium 10.1 mg/dL (8.7-10.4); Carbon Dioxide 29 mmol/L (20-31); Chloride 100 mmol/L (98-107); Lipase 46 U/L (12-53); Sodium 139 mmol/L (136-145)
[2025-06-07 01:21] LABS: Albumin 5.2 g/dL (3.2-4.8); Glucose 134 mg/dL (74-106); Potassium 3.2 mmol/L (3.5-5.1); Total Protein 8.6 g/dL (5.7-8.2)
--- NOTE | 2025-06-07 01:27 | ED.PDOC ---
GI ASSESSMENT HPI Comments HPI: Poor Historian. 44-year-old homosexual male accompanied by his male partner presents to the ED for evaluation of worsening rectal bleed in the last five weeks with the associated left lower quadrant pain and nonspecific diarrhea. He showed me some pictures on his smart phone. Patient was supposed to be admitted few months ago but he left against medical advice. Patient is willing and agreeable to stay in the hospital now. He never followed up with a GI doctor. He never had a colonoscopy. Patient denies any history of HIV. Patient is not on any medications. Symptoms has been getting worse in the last few days. Past Medical History: Diverticulitis, cocaine abuse, Past Surgical History: Appendectomy, tonsillectomy REVIEW OF SYSTEMS: CONSTITUTIONAL: Denies acute: fever, diaphoresis, chills, generalized weakness. HEAD: Denies acute: headache, photophobia Eyes: Denies acute: Double vision, vision loss, eye pain, eye discharge. EARS: Denies acute: tinnitus, hearing loss, ear discharge, ear pain, THROAT: Denies acute: sore throat, swelling, difficulty swallowing , pain with swallowing, change in voice. NECK: Denies acute: neck pain, neck swelling, stiff neck. HEART: Denies acute : chest pain, palpitations, LUNGS: Denies acute: SOB, wheezing, cough, hemoptysis ABDOMEN: Denies acute: Nausea, Vomiting, melena , hematemesis, SKIN: Denies acute: rash, redness, lesions, itchiness. EXTREMITIES: Denies acute: calf pain, numbness, tingling, weakness, denies pain in extremity. Denies acute: Low back pain. Neuro: Denies acute: focal neurological deficit, motor or sensory focal neurological deficit, tremors, seizure like activity, confusion, dizziness, change in mental status, loss of bowel or bladder function, cauda equina like symptoms. : Denies acute: dysuria, hematuria, flank pain, increase in urinary frequency. PSYCH: Denies acute: hallucination, suicidal ideation, homicidal ideation. PHYSICAL EXAM: General: -----no---acute distress, awake and alert. Head: normocephalic, atraumatic. Neck: supple, trachea is midline, no swelling. Throat: Normal phonation. Eyes:, no erythema, no purulent discharge, no proptosis, no icterus. Heart: regular rate, regular rhythm, no significant murmur appreciated. Lungs: no apparent respiratory distress, Able to speak in full sentences. No wheezing, no rhonchi, no crackles. No stridors Clear to auscultation bilaterally. Abdomen: Left lower quadrant tender to palpation, non distended, soft, no guarding, no rebound, + bowel sounds. Neuro: Awake, Alert, oriented to name, self, situation, follows commands GCS=15. Speech is normal. Skin: no petechia, no purpura, no cyanosis, non-pale, not jaundice. Lower extremities: --no - Pitting edema no deformity, no focal swelling, no calf TTP. Makes eye contact. moves all four extremities. Face: no apparent facial droop. Ambulating in the ED independently. ED COURSE: DISCLAIMER: This medical document was created using an electronic medical record system with voice recognition software and computerized dictation system. Although this document has been carefully reviewed, there might still be some phonetic and typographical errors. Occasional wrong-word or "sound-alike" substitutions may have occurred due to the inherent limitations of voice recognition software. These areas are purely typographical due to imperfections of the software programs and do not reflect any compromise in the patient's medical care. Please read the chart carefully and recognize, using context, where these substitutions have occurred. Chief Complaint: GI Bleed Time Seen by MD: 00:23 Primary Care Provider: WALTER ARENAS Reviewed Notes: Allergies Allergies: Coded Allergies: Penicillins (Verified Allergy, Unknown, 02/22/20) Home Meds Active Scripts Naloxone HCl (Narcan) 4 Mg/0.1 Ml Spr, 4 MG NA Q5MINP PRN, #1 SPRAY Prov:AMAN SLOAN MD 11/07/24 Hydrocodone-Acetaminophen (Hydrocodone Bitartrate/AC 5-325 mg) 1 Tab Tab, 1 TAB PO Q6HPRN PRN, #14 TAB Prov:AMAN SLOAN MD 11/07/24 Metronidazole (Flagyl) 500 Mg Tab, 1 TAB PO TID, #30 TAB Prov:AMAN SLOAN MD 11/07/24 Doxycycline (Monohydrate) (Doxycycline) 100 Mg Cap, 100 MG PO BID, #14 CAP Prov:AMAN SLOAN MD 11/07/24 Promethazine-Dm (Promethazine Dm 6.25-15 mg/5Ml) 1 Marielena Marielena, 1 MARIELENA PO TID, #180 ML Prov:MIKALA GARCES 10/25/21 Information Source: Patient Mode of Arrival: Ambulatory Past Medical History Surgical History: Appendectomy, Tonsillectomy Family History Family History: Reviewed,noncontributory to illness Social History Smoker: Cigarettes Alcohol: Occasionally Drugs: Cocaine Lives In: Home Was a procedure done? Was a procedure done?: No GI differential Dx Differential Diagnosis: Other (Diverticulitis, colitis, fistula, neoplasm, hemorrhoids, anal fissures, constipation, Crohn's disease, ulcerative colitis) X-Ray, Labs, Meds, VS Vital Signs Date Time Temp Pulse Resp B/P (MAP) Pulse Ox O2 Delivery O2 Flow Rate FiO2 06/06/25 23:50 98.3 120 18 137/71 98 98.3 Lab Test 06/07/25 02:25 06/07/25 00:36 Range/Units Lactic Acid Level Pending 3.3 *H 0.4-2.0 mmol/L White Blood Count 11.5 H 4.4-10.8 10^3/uL Red Blood Count 5.69 4.5-5.90 10^6/uL Hemoglobin 18.0 H 13.5-17.5 g/dL Hematocrit 52.4 41.0-53.0 % Mean Corpuscular Volume 92.0 80.0-100.0 fL Mean Corpuscular Hemoglobin 31.5 28.0-32.0 pg Mean Corpuscular Hemoglobin Concent 34.3 32.0-36.0 g/dL Red Cell Distribution Width 13.0 11.8-14.3 % Platelet Count 318 140-450 10^3/uL Mean Platelet Volume 8.2 6.9-10.8 fL Neutrophils (%) (Auto) 64.6 37.0-80.0 % Lymphocytes (%) (Auto) 22.6 10.0-50.0 % Monocytes (%) (Auto) 9.4 0.0-12.0 % Eosinophils (%) (Auto) 3.1 0.0-7.0 % Basophils (%) (Auto) 0.3 0.0-2.0 % Neutrophils # (Auto) 7.4 1.6-8.6 10 ^3/uL Lymphocytes # (Auto) 2.6 0.4-5.4 10 ^3/uL Monocytes # (Auto) 1.1 0-1.3 10 ^3/uL Eosinophils # (Auto) 0.4 0-0.8 10 ^3/uL Basophils # (Auto) 0 0-0.2 10 ^3/uL Nucleated Red Blood Cells 0.1 % Sodium Level 139 136-145 mmol/L Potassium Level 3.2 L 3.5-5.1 mmol/L Chloride Level 100 98-107 mmol/L Carbon Dioxide Level 29 20-31 mmol/L Anion Gap 10 5-15 Blood Urea Nitrogen 9 9-23 mg/dL Creatinine 0.95 0.700-1.30 mg/dL Glomerular Filtration Rate Calc 101 >90 mL/min BUN/Creatinine Ratio 9.5 L 10.0-20.0 Serum Glucose 134 H 74-106 mg/dL Calcium Level 10.1 8.7-10.4 mg/dL Total Bilirubin 0.8 0.2-1.0 mg/dL Aspartate Amino Transferase (AST) 14 13-40 U/L Alanine Aminotransferase (ALT) 21 7-40 U/L Alkaline Phosphatase 100 46-116 U/L Total Protein 8.6 H 5.7-8.2 g/dL Albumin 5.2 H 3.2-4.8 g/dL Lipase 46 12-53 U/L Current Medications Medications (Trade) Dose Ordered Sig/Thad Route Start Time Stop Time Status Last Admin Sodium Chloride 1,000 ml @ 1,000 mls/hr Q1H ONCE IV 06/07/25 01:30 06/07/25 02:29 DC 06/07/25 02:03 Pantoprazole Sodium (Protonix) 40 mg ONCE ONCE IV 06/07/25 01:30 06/07/25 01:31 DC 06/07/25 02:[address] [address] Ph: [phone] DIAGNOSTIC IMAGING Diagnostic Imaging Report : [id number] Signed PATIENT: LAILA PUENTES ACCT: [id number] UNIT: [id number] : 1980 LOC: ER ROOM / BED: / AGE / SEX: 44 / M ADM STATUS: REG ER SERVICE [id number] ORDERING PHYSICIAN: BARB BARBOSA DO PROCEDURE(s): ABPLIV - CT AB PEL WITH IV CON ONLY REASON: rectal bleed ORDER NUMBER(s): [id number], ACCESSION NUMBER(s): [id number] Exam: CT CT AB PEL WITH IV CON ONLY History: rectal bleed Comparison Study: CT CT AB PEL WITH IV CON ONLY on DOS: 05/02/25, CT CT AB PEL WO CON-NO ORAL OR IV on DOS: 11/05/24 TECHNIQUE: A digital molding utility worker image was obtained. During the uneventful, intravenous administration of contrast material, multislice data acquisition was obtained through the abdomen and pelvis. The data set was subsequently reconstructed into multiplanar reformats. RADIATION DOSE: CTDI vol 21.9 mGy. DLP 1194.46 mGy.cm Findings: Lungs: The lung bases are clear. Liver: Too small to characterize hepatic lesions. Spleen: Unremarkable. Pancreas: Unremarkable. Gallbladder: Unremarkable. Adrenals: Unremarkable Kidneys: Unremarkable. Pelvic Viscera: Unremarkable. Vasculature: Unremarkable. Retroperitoneum: Unremarkable. Bowel: Colonic diverticulosis without CT evidence of diverticulitis. No bowel obstruction. Musculoskeletal: Grade 1 anterolisthesis of L5 on S1 on the basis of bilateral pars defects. Soft tissues: Unremarkable Impression: 1. Colonic diverticulosis without definite CT evidence of acute diverticulitis. 2. Unchanged additional findings as detailed. ATED BY: SARANYA MORENO MD DICTATED DATE/TIME: 06/07/25108 SIGNED BY: SARANYA MORENO MD SIGNED DATE/TIME: 06/07/25108 CC: Time of 1ST Reevaluation: 02:25 Reevaluation 1ST: Unchanged Time of 2ND Reevaluation: 02:50 (The case was discussed with the admitting team (HPI, physical exam, labs and diagnostic tests that were available at the time of disposition, ED course, treatment plan) on the phone. They agreed to admit the patient to their service and assume care of this patient from this point forward. SENIOR CYTOTECHNOLOGIST Tomás. ) Patient Education/Counseling: Diagnosis, Treatment Family Education/Counseling: Other Comments MDM: patient presented with the above HPI.-abdominal pain/rectal bleed-----workup was initiated. patient was found with the above mentioned diagnosis. the following medications were ordered: please refer to order lists of meds and tests obtained by myself Dr. Barbosa. Patient ED course and VS have been stabilized. Patient has been reassessed in the ED and remained in a stable condition. Pertinent incidental findings were discussed with the patient and/or family. Patient/family voices understanding and is agreeable with plan. Patient has been observed in the ED adequate length of time to insure improvement/stability. Escalation of care considered: Consideration of escalation to observation or admission Patient was given fluids and Protonix. CT scan with IV contrast was obtained. Patient was ADMITTED to the medicine team for further evaluation and treatment of their presentation. All the reports of any imaging studies that were ordered by myself were reviewed by myself. Departure 1 Departure Time of Disposition: 01:27 Impression: Primary Impression: Left lower quadrant pain Additional Impression: Rectal bleed Disposition: ADMITTED INPATIENT Admit to: Tele Condition: Guarded Discharged With: Self Critical Care Note Critical Care Time?: No BARB BARBOSA DO Jun 07, 2025 01:27
[2025-06-07] MEDS: SODIUM CHLORIDE 0.9% 1,000 ML IV ONE (02:03)
[2025-06-07] MEDS: PANTOPRAZOLE 40 MG/10 ML VIAL INJ IV ONE (02:03)
[2025-06-07] MEDS: POTASSIUM CHL 20 Meq TABLET PO ONE (03:30)
[2025-06-07] MEDS ORDERED: ACETAMINOPHEN 325 MG TAB PO PRN (03:30)
[2025-06-07] MEDS ORDERED: NITROGLYCERIN 0.4 MG SL TAB SL PRN (03:30)
[2025-06-07] MEDS ORDERED: MORPHINE SULFATE INJ 2 MG/ml SYRG IV PRN ×2 (03:30)
[2025-06-07] MEDS: SODIUM CHLORIDE 0.9% 2,000 ML IV ONE (03:30)
[2025-06-07] MEDS ORDERED: ONDANSETRON HCL 4 MG/2 ML VIAL IV PRN (03:30)
--- NOTE | 2025-06-07 03:47 | DVHHP2 ---
NATALIYA MENDEZ CERTIFIED ORTHOTIST PRACTICE MANAGER 06/07/25 0347: History of Present Illness Reason for Visit: rectal bleed History of Present Illness 44-year-old male with past medical history of diverticulitis presents with complaints of worsening rectal bleed x5 weeks. Patient is also endorsing diarrhea and left lower quadrant pain. Estimated blood loss about 5-6 oz per event. States there is red blood and black stool. Also endorses he was previously checked for hemorrhoids. During the emergency department evaluation W11.5, H and H 18/52.4, PLT 318. Na 139, K3.2, BUN 9, creatinine 0.95, LFTs normal, LA 3.3/1.2. CT abdomen and pelvis with IV contrast impression reads colonic diverticulosis without definite CT evidence of acute diverticulitis. Incidental finding for hepatic lesions too small to characterize. At this time patient denies fevers, chills, shortness of breath, chest pain, palpitations, nausea, vomiting. GI: Diverticulosis, GI bleed Smoke: No ALCOHOL: none Lives: with Family Review of Systems Constitutional: Yes: Malaise; No: Fever, Chills, Sweats, Weakness, Other Eyes: No: Pain, Vision change, Conjunctivae inflammation, Eyelid inflammation, Other, Redness ENT: No: Ear pain, Ear discharge, Nose pain, Nose discharge, Nose congestion, Mouth pain, Mouth swelling, Throat pain, Throat swelling, Other Respiratory: No: Cough, Dry, Shortness of breath, SOB with excertion, Wheezing, Hemoptysis, Pleuritic Pain, Sputum, Wheezing, Other Cardiovascular: No: Chest Pain, Palpitations, Orthopnea, Paroxysmal Noc. Dyspnea, Edema, Lt Headedness, Other Gastrointestinal: Abdominal Pain, Diarrhea, Melena, Hematochezia; No: Nausea, Vomiting, Constipation, Other Genitourinary: No Dysuria, No Frequency, No Incontinence, No Hematuria, No Retention, No Other Musculoskeletal: No: other, neck pain, shoulder pain, arm pain, back pain, hand pain, leg pain, foot pain Skin: No: Rash, Lesions, Jaundice, Bruising, Other Neurological: No: Weakness, Numbness, Incoordination, Change in speech, Confusion, Seizures, Other Allergies: Coded Allergies: Penicillins (Verified Allergy, Unknown, 02/22/20) Medications Current Medications Medications Dose Ordered Sig/Thad Route Start Time Stop Time Status Last Admin Dose Admin Acetaminophen 650 mg Q6HP PRN PO 06/07/25 03:30 Acetaminophen/ Hydrocodone Bitart 1 tab Q4HP PRN PO 06/07/25 03:30 Ondansetron HCl 4 mg Q4HP PRN IV 06/07/25 03:30 Morphine Sulfate 2 mg Q4HPRN PRN IV 06/07/25 03:30 Nitroglycerin 0.4 mg Q5MINP PRN SL 06/07/25 03:30 Morphine Sulfate 2 mg Q30M PRN IV 06/07/25 03:30 Pantoprazole Sodium 40 mg DAILY IV 06/07/25 10:00 Metronidazole 100 ml @ 100 mls/hr TID IV 06/07/25 06:00 Levofloxacin/ Dextrose 100 ml @ 100 mls/hr DAILY IV 06/07/25 10:00 UNV Exam Vital Signs Vital Signs Date Time Temp Pulse Resp B/P (MAP) Pulse Ox O2 Delivery O2 Flow Rate FiO2 06/07/25 03:05 Room Air* 0 21 06/07/25 02:54 98.1 100 14 158/101 (120) 97 98.1 General Appearance: Alert, Oriented X3, Cooperative, mild distress HEENT: Atraumatic, PERRLA, EOMI Respiratory: Clear to auscultation, Normal air movement Cardiovascular: Regular rate, Normal S1, Normal S2 Abdominal: Normal bowel sounds, Soft, No tenderness Extremities: No clubbing, No cyanosis, No edema Skin: No breakdown Neuro: Normal gait, Normal speech, Strength at 5/5 X4 ext, Sensation intact Psych/Mental Status: Mental status NL, Mood NL Labs/Xrays Labs Test 06/07/25 02:25 06/07/25 00:36 Range/Units Lactic Acid Level 1.2 0.4-2.0 mmol/L White Blood Count 11.5 H 4.4-10.8 10^3/uL Red Blood Count 5.69 4.5-5.90 10^6/uL Hemoglobin 18.0 H 13.5-17.5 g/dL Hematocrit 52.4 41.0-53.0 % Mean Corpuscular Volume 92.0 80.0-100.0 fL Mean Corpuscular Hemoglobin 31.5 28.0-32.0 pg Mean Corpuscular Hemoglobin Concent 34.3 32.0-36.0 g/dL Red Cell Distribution Width 13.0 11.8-14.3 % Platelet Count 318 140-450 10^3/uL Mean Platelet Volume 8.2 6.9-10.8 fL Neutrophils (%) (Auto) 64.6 37.0-80.0 % Lymphocytes (%) (Auto) 22.6 10.0-50.0 % Monocytes (%) (Auto) 9.4 0.0-12.0 % Eosinophils (%) (Auto) 3.1 0.0-7.0 % Basophils (%) (Auto) 0.3 0.0-2.0 % Neutrophils # (Auto) 7.4 1.6-8.6 10 ^3/uL Lymphocytes # (Auto) 2.6 0.4-5.4 10 ^3/uL Monocytes # (Auto) 1.1 0-1.3 10 ^3/uL Eosinophils # (Auto) 0.4 0-0.8 10 ^3/uL Basophils # (Auto) 0 0-0.2 10 ^3/uL Nucleated Red Blood Cells 0.1 % Sodium Level 139 136-145 mmol/L Potassium Level 3.2 L 3.5-5.1 mmol/L Chloride Level 100 98-107 mmol/L Carbon Dioxide Level 29 20-31 mmol/L Anion Gap 10 5-15 Blood Urea Nitrogen 9 9-23 mg/dL Creatinine 0.95 0.700-1.30 mg/dL Glomerular Filtration Rate Calc 101 >90 mL/min BUN/Creatinine Ratio 9.5 L 10.0-20.0 Serum Glucose 134 H 74-106 mg/dL Calcium Level 10.1 8.7-10.4 mg/dL Total Bilirubin 0.8 0.2-1.0 mg/dL Aspartate Amino Transferase (AST) 14 13-40 U/L Alanine Aminotransferase (ALT) 21 7-40 U/L Alkaline Phosphatase 100 46-116 U/L Total Protein 8.6 H 5.7-8.2 g/dL Albumin 5.2 H 3.2-4.8 g/dL Lipase 46 12-53 U/L SEPSIS Sepsis Screen Date sepsis recognized/suspect: Jun 07, 2025 Time Sepsis recognized/suspect: 306 Recent Procedure: No On Antibiotic Therapy: No Respiratory Rate >20: No Heart Rate >90: No Temp<36 C (96.8 F) or >38.3 C: No SBP <90 or MAP <65 mmHG: No New Acute Mental Status Change: No Is the patient on CPAP, BIPAP,: No Physician Orders Pug Mill Operator Helper (06/07/25 ) Ct Ab Pel With Iv Con Only (06/07/25 00:24) Urinalysis (06/07/25 02:52) Drug Screen (06/07/25 02:52) Admit (06/07/25 03:30) Code Status (06/07/25 03:30) Vital Signs .PER UNIT PROTOCOL (06/07/25 03:30) Review Orders With Adm.Md (06/07/25:30) Encourage Activity As Tolerate (06/07/25:30) Oxygen By Face Mask (06/07/25:30) Acetaminophen Tablet (Tylenol Tablet) (06/07/25 03:30) Notify Md Of Changes From Base (06/07/25 03:30) Advance Directive (06/07/25 03:30) Basic Metabolic Panel (06/07/25 05:00) Basic Metabolic Panel (06/08/25 05:00) Basic Metabolic Panel (06/09/25 05:00) Basic Metabolic Panel (06/10/25 05:00) Basic Metabolic Panel (06/11/25 05:00) Urinalysis (06/07/25 03:30) Complete Blood Count (06/07/25 05:00) Complete Blood Count (06/08/25 05:00) Complete Blood Count (06/09/25 05:00) Complete Blood Count (06/10/25 05:00) Complete Blood Count (06/11/25 05:00) Patient Condition (06/07/25 03:30) Allergies (06/07/25 03:30) Hydrocodone-Acet 5/325mg Tab ([place] 5/32 (06/07/25 03:30) Ondansetron Hcl (Zofran) (06/07/25 03:30) Drug Screen (06/07/25 03:30) Morphine Sulfate Injection (06/07/25 03:30) Sequential Compression Device (06/07/25 ) Nitroglycerin Sublingual (Ntrostat Subli (06/07/25 03:30) Morphine Sulfate Injection (06/07/25 03:30) Stat Ekg For Chest Pain (06/07/25 03:30) Notify Of Changes From Base (06/07/25 03:30) Meat Pumper For 24 Hours (06/07/25 03:30) Emergency Dysrhythmia Protocol (06/07/25 03:30) Rhythm Strips Once Every Shift (06/07/25 03:30) Oxygen By Nasal Cannula (06/07/25 03:30) * Gi [facility] Pump House Technician (06/07/25 03:30) Pantoprazole (Protonix) (06/07/25 10:00) Clear Liq Diet (06/07/25 Breakfast) Sodium Chloride 0.9% (06/07/25 03:30) Metronidazole 500mg/100ml (Flagyl 500mg/ (06/07/25 06:00) Levofloxacin 500mg (Levaquin 500mg/ 100m (06/07/25 10:00) Vital Signs Date Time Temp Pulse Resp B/P (MAP) Pulse Ox O2 Delivery O2 Flow Rate FiO2 06/07/25 03:05 Room Air* 0 21 06/07/25 02:54 98.1 100 14 158/101 (120) 97 98.1 06/06/25 23:50 98.3 120 18 137/71 98 98.3 Laboratory Tests Test 06/07/25 00:36 06/07/25 02:25 Lactic Acid Level 3.3 mmol/L (0.4-2.0) *H 1.2 mmol/L (0.4-2.0) White Blood Count 11.5 10^3/uL (4.4-10.8) H Medications Medications Dose Ordered Sig/Thad Route Start Time Stop Time Status Last Admin Dose Admin Pantoprazole Sodium 40 mg ONCE ONCE IV 06/07/25 01:30 06/07/25 01:31 DC 06/07/25 02:03 40 MG Sodium Chloride 1,000 ml @ 1,000 mls/hr Q1H ONCE IV 06/07/25 01:30 06/07/25 02:29 DC 06/07/25 02:03 1,000 MLS/HR Assessment/Plan Assessment/Plan Rectal bleed Hypokalemia Lactic acidosis Leukocytosis Plan Admit telemetry Consult Gastroenterology. Clear liquid diet. Occult stool IVF IV ABX Monitor CBC, BMP. Correct electrolytes as needed. GI PPX Protonix / DVT PPX SCD Plan discussed with: Patient My Orders Orders - NATALIYA MENDEZ NP Procedure Category Date Status Time Admit ADMIT 06/07/25 Transmitted 03:30 Code Status CODE 06/07/25 Transmitted 03:30 Vital Signs KERON 06/07/25 In Process 03:30 Review Orders With KERON 06/07/25 In Process Adm. 03:30 Encourage Activity As KERON 06/07/25 In Process Tolerate 03:30 Oxygen By Face Mask RT 06/07/25 Transmitted 03:30 Acetaminophen Tablet PHA 06/07/25 In Process (Tylenol Tablet) 03:30 Notify Of Changes KERON 06/07/25 In Process From Base 03:30 Advance Directive KERON 06/07/25 In Process 03:30 Basic Metabolic Panel LAB 06/07/25 Logged 05:00 Basic Metabolic Panel LAB 06/08/25 Verified 05:00 Basic Metabolic Panel LAB 06/09/25 Verified 05:00 Basic Metabolic Panel LAB 06/10/25 Verified 05:00 Basic Metabolic Panel LAB 06/11/25 Verified 05:00 Urinalysis LAB 06/07/25 Logged 03:30 Complete Blood Count LAB 06/07/25 Logged 05:00 Complete Blood Count LAB 06/08/25 Verified 05:00 Complete Blood Count LAB 06/09/25 Verified 05:00 Complete Blood Count LAB 06/10/25 Verified 05:00 Complete Blood Count LAB 06/11/25 Verified 05:00 Patient Condition ORDERS 06/07/25 Transmitted 03:30 Allergies KERON 06/07/25 In Process 03:30 Hydrocodone-Acet PHA 06/07/25 In Process 5/325mg Tab ([place] 03:30 Ondansetron Hcl PHA 06/07/25 In Process (Zofran) 03:30 Drug Screen LAB 06/07/25 Logged 03:30 Morphine Sulfate PHA 06/07/25 In Process Injection 03:30 Sequential KERON 06/07/25 In Process Compression Device Nitroglycerin PHA 06/07/25 In Process Sublingual (Ntrostat 03:30 Morphine Sulfate PHA 06/07/25 In Process Injection 03:30 Stat Ekg For Chest KERON 06/07/25 In Process Pain 03:30 Notify Md Of Changes KERON 06/07/25 In Process From Base 03:30 Meat Pumper For KERON 06/07/25 In Process 24 Hours 03:30 Emergency Dysrhythmia KERON 06/07/25 In Process Protocol 03:30 Rhythm Strips Once KERON 06/07/25 In Process Every Shift 03:30 Oxygen By Nasal RT 06/07/25 Transmitted Cannula 03:30 * [facility] Pump House Technician CONS 06/07/25 Transmitted 03:30 Pantoprazole PHA 06/07/25 In Process (Protonix) 10:00 Clear Liq Diet DIET 06/07/25 Transmitted Breakfast Sodium Chloride 0.9% PHA 06/07/25 In Process 03:30 Metronidazole PHA 06/07/25 In Process 500mg/100ml (Flagyl 06:00 Levofloxacin 500mg PHA 06/07/25 Pending (Levaquin 500mg/ 100m 10:00 Date of Service: Jun 07, 2025 Billing Provider: TOM SANDOVAL MD Common Visit Codes: NOT BILLABLE TOM SANDOVAL MD 06/07/25 1457: Review of Systems Allergies: Coded Allergies: Penicillins (Verified Allergy, Unknown, 02/22/20) NATALIYA MENDEZ NP Jun 07, 2025 03:47 TOM SANDOVAL MD Jun 07, 2025 14:57
[2025-06-07 04:25] LABS: Amphetamine Screen, Urine Neg (NEGATIVE)
[2025-06-07 04:31] LABS: Barbiturate Scree,Urine Neg (NEGATIVE); Benzodiazephine Screen, Urine Neg (NEGATIVE); Cannabinoid Screen, Urine Neg (NEGATIVE); Cocaine Screen, Urine Pos (NEGATIVE); Opiate Scree,Urine Neg (NEGATIVE); Phencyclidine Screen, Urine Neg (NEGATIVE)
[2025-06-07 04:35] LABS: Urine Protein, UAD TRACE (Negative)
[2025-06-07 06:57] LABS: Hematocrit 48.3 % (41.0-53.0); Hemoglobin 16.6 g/dL (13.5-17.5); Mean Corpuscular Hemoglobin 31.5 pg (28.0-32.0); Mean Corpuscular Volume 91.6 fL (80.0-100.0); Nucleated Red Blood Cells % 0.1 %
[2025-06-07 07:07] LABS: Chloride 105 mmol/L (98-107); Potassium 3.9 mmol/L (3.5-5.1); Sodium 140 mmol/L (136-145)
[2025-06-07 07:08] LABS: Anion Gap 8 (5-15); Calcium 9.2 mg/dL (8.7-10.4); Carbon Dioxide 27 mmol/L (20-31)
[2025-06-07 07:13] LABS: BUN/Creatinine Ratio 11.4 (10.0-20.0); Blood Urea Nitrogen 9 mg/dL (9-23)
[2025-06-07 07:14] LABS: Glucose 112 mg/dL (74-106)
[2025-06-07] MEDS ORDERED: hydrALAZINE HCL 20 MG/ML VL IV PRN (08:15)
[2025-06-07 08:49] VITALS: BP 136/94; PULSE 93; RESP 20; TEMP 98; O2SAT 96
[2025-06-07] MEDS ORDERED: ESCI5TAB PO (09:02)
[2025-06-07] MEDS: LISINOPRIL 5 MG TAB PO SCH (09:53)
[2025-06-07] MEDS: PANTOPRAZOLE 40 MG/10 ML VIAL INJ IV SCH (10:00)
[2025-06-07] MEDS: HYDROcodone-ACET 5/325MG TAB PO PRN (12:49)
[2025-06-07 13:00] VITALS: BP 127/87; PULSE 88; RESP 18; TEMP 98.2; O2SAT 96
[2025-06-07] MEDS ORDERED: POLYETHYLENE GLYCOL 17 GM PWDR PO PRN (14:30)
[2025-06-07 15:50] VITALS: PULSE 80; RESP 18; O2SAT 96
--- NOTE | 2025-06-07 16:02 | DVHCONRES ---
Date Seen: Jun 07, 2025 Resident Creating Document: JHAJJ,SARPUNEET RESIDENT Referring Physician Larry Reason for Consultation GI bleed History of Present Illness Patient is a 44-year-old male with a past medical history of diverticulitis presented to the hospital with a chief complaint of rectal bleeding for the last 5 weeks. Patient reported that he has had on and off episodes of bright red blood per rectum when he has a bowel movement with the last 5 weeks with the associated blood on wiping. Patient also reports of tenesmus and rectal pain. Patient is a homosexual relationship and reports that he is the ' top ' partner. Does not report of any inserted anal sex, no use of sexual toys, no STIs. Patient has never had a colonoscopy before reports that he was scheduled for 1 but he did not go to his appointment. Denies any history of colon cancer in the family. Patient denied diarrhea or constipation. Denies any weight loss, night sweats, decreased appetite Past Medical History Diverticulitis Past Surgical History None reported Family History: FH: cancer G8 FATHER FH: diverticulitis G8 FATHER FH: thyroid disease G8 MOTHER Family History No significant family history of colon/rectal/anal cancer Allergies: Coded Allergies: Penicillins (Verified Allergy, Unknown, 02/22/20) Home Meds Active Scripts Naloxone HCl (Narcan) 4 Mg/0.1 Ml Spr, 4 MG NA Q5MINP PRN, #1 SPRAY Prov:AMAN SLOAN MD 11/07/24 Hydrocodone-Acetaminophen (Hydrocodone Bitartrate/AC 5-325 mg) 1 Tab Tab, 1 TAB PO Q6HPRN PRN, #14 TAB Prov:AMAN SLOAN MD 11/07/24 Metronidazole (Flagyl) 500 Mg Tab, 1 TAB PO TID, #30 TAB Prov:AMAN SLOAN MD 11/07/24 Doxycycline (Monohydrate) (Doxycycline) 100 Mg Cap, 100 MG PO BID, #14 CAP Prov:AMAN SLOAN MD 11/07/24 Promethazine-Dm (Promethazine Dm 6.25-15 mg/5Ml) 1 Marielena Marielena, 1 MARIELENA PO TID, #180 ML Prov:MIKALA GARCES 10/25/21 Reported Medications Escitalopram Oxalate (Lexapro) 5 Mg Tab, 1 TAB PO DAILY, #30 TAB 2 Refills 06/07/25 Current Medications Current Medications Medications (Trade) Dose Ordered Sig/Thad Route PRN Reason Start Time Stop Time Status Last Admin Acetaminophen (Tylenol Tablet) 650 mg Q6HP PRN PO PAIN SCALE 1-3 OR TEMP>100.4 06/07/25 03:30 Acetaminophen/ Hydrocodone Bitart ([place] 5/325MG Tab) 1 tab Q4HP PRN PO MODERATE PAIN (4-6 PAIN SCALE) 06/07/25 03:30 06/07/25 12:49 Ondansetron HCl (Zofran) 4 mg Q4HP PRN IV NAUSEA / VOMITING 06/07/25 03:30 Morphine Sulfate 2 mg Q4HPRN PRN IV SEVERE PAIN (7-10 PAIN SCALE) 06/07/25 03:30 Nitroglycerin (Ntrostat Sublingual) 0.4 mg Q5MINP PRN SL FOR CHEST PAIN 06/07/25 03:30 Morphine Sulfate 2 mg Q30M PRN IV FOR CHEST PAIN 06/07/25 03:30 Pantoprazole Sodium (Protonix) 40 mg DAILY IV 06/07/25 10:00 06/07/25 10:00 Metronidazole 100 ml @ 100 mls/hr TID IV 06/07/25 06:00 06/07/25 14:53 Levofloxacin/ Dextrose 100 ml @ 100 mls/hr DAILY IV 06/07/25 10:00 06/07/25 10:00 Lisinopril (Zestril Tablet) 10 mg DAILY PO 06/07/25 10:00 06/07/25 09:53 Hydralazine HCl (Apresoline Injection) 10 mg Q6HP PRN IV SBP>150 06/07/25 08:15 Polyethylene Glycol (Miralax 17GM Powder) 17 gm DAILYPRN PRN PO FOR CONSTIPATION 06/07/25 14:30 Citalopram Hydrobromide (CeleXA TABLET) 40 mg DAILY PO 06/08/25 10:00 Future Hold Review of Systems Patient seen and examined at the bedside Does not report of any abdominal pain, fever, chills, diarrhea or constipation Patient reports his last bowel movement was yesterday and he noticed blood in the stool in that Vital Signs Vital Signs Date Time Temp Pulse Resp B/P (MAP) Pulse Ox O2 Delivery O2 Flow Rate FiO2 06/07/25 13:00 98.2 88 18 127/87 (100) 96 98.2 06/07/25 03:05 Room Air* 0 21 Physical Exam Gen - no pallor, no scleral icterus Skin - Patients skin is warm and dry. HEENT - normocephalic, atraumatic, dry mucous membranes. Neck - supple, no lymphadenopathy Pulmonary - B/L equal air entry with vesicular breath sounds cardiovascular - regular S1,S2 heard GI - soft nontender abdomen. Bowel sounds normoactive. Neurological - Patient is alert and oriented x4. No motor or sensory weakness Labs/Diagnostic Data Labs Test 06/07/25 06:30 06/07/25 02:25 06/07/25 01:20 06/07/25 00:36 Range/Units White Blood Count 10.0 4.4-10.8 10^3/uL Red Blood Count 5.27 4.5-5.90 10^6/uL Hemoglobin 16.6 13.5-17.5 g/dL Hematocrit 48.3 41.0-53.0 % Mean Corpuscular Volume 91.6 80.0-100.0 fL Mean Corpuscular Hemoglobin 31.5 28.0-32.0 pg Mean Corpuscular Hemoglobin Concent 34.4 32.0-36.0 g/dL Red Cell Distribution Width 12.9 11.8-14.3 % Platelet Count 276 140-450 10^3/uL Mean Platelet Volume 8.1 6.9-10.8 fL Neutrophils (%) (Auto) 54.5 37.0-80.0 % Lymphocytes (%) (Auto) 30.4 10.0-50.0 % Monocytes (%) (Auto) 10.3 0.0-12.0 % Eosinophils (%) (Auto) 4.2 0.0-7.0 % Basophils (%) (Auto) 0.6 0.0-2.0 % Neutrophils # (Auto) 5.4 1.6-8.6 10 ^3/uL Lymphocytes # (Auto) 3.0 0.4-5.4 10 ^3/uL Monocytes # (Auto) 1.0 0-1.3 10 ^3/uL Eosinophils # (Auto) 0.4 0-0.8 10 ^3/uL Basophils # (Auto) 0.1 0-0.2 10 ^3/uL Nucleated Red Blood Cells 0.1 % Sodium Level 140 136-145 mmol/L Potassium Level 3.9 3.5-5.1 mmol/L Chloride Level 105 98-107 mmol/L Carbon Dioxide Level 27 20-31 mmol/L Anion Gap 8 5-15 Blood Urea Nitrogen 9 9-23 mg/dL Creatinine 0.79 0.700-1.30 mg/dL Glomerular Filtration Rate Calc 112 >90 mL/min BUN/Creatinine Ratio 11.4 10.0-20.0 Serum Glucose 112 H 74-106 mg/dL Calcium Level 9.2 8.7-10.4 mg/dL Lactic Acid Level 1.2 0.4-2.0 mmol/L Urine Color Yellow Yellow Urine Clarity Clear Clear Urine pH 5.5 5.0-9.0 Urine Specific [place] > 1.050 H 1.001-1.035 Urine Protein Trace H Negative Urine Ketones Negative Negative Urine Blood Negative Negative /uL Urine Nitrite Negative Negative Urine Bilirubin Negative Negative Urine Urobilinogen 2 H Negative mg/dL Urine Leukocyte Esterase Negative Negative /uL Urine RBC 1 0 - 3 /hpf Urine Microscopic WBC < 1 0-3 /HPF Urine Squamous Epithelial Cells None seen <5 /hpf Urine Bacteria None seen None Seen /hpf Urine Mucus Few None Seen Urine Glucose Normal Normal mg/dL Urine Opiates Screen Neg NEGATIVE Urine Fentanyl Screen Neg NEGATIVE Urine Barbiturates Screen Neg NEGATIVE Urine Phencyclidine Screen Neg NEGATIVE Urine Amphetamines Screen Neg NEGATIVE Urine Benzodiazepines Screen Neg NEGATIVE Urine Cocaine Screen Pos NEGATIVE Urine Cannabinoids Screen Neg NEGATIVE Total Bilirubin 0.8 0.2-1.0 mg/dL Aspartate Amino Transferase (AST) 14 13-40 U/L Alanine Aminotransferase (ALT) 21 7-40 U/L Alkaline Phosphatase 100 46-116 U/L Total Protein 8.6 H 5.7-8.2 g/dL Albumin 5.2 H 3.2-4.8 g/dL Lipase 46 12-53 U/L Assessment Assessment GI bleed likely lower GI Possible hemorrhoids Possible colonic polyp/mass Colonic diverticulosis Cocaine use Plan - avoid constipation, MiraLax as needed, Colace b.i.d. - PUD prophylaxis with the Protonix - patient will benefit from colonoscopy since he is having rectal bleeding for the last 5 weeks, to be scheduled for Thursday - IV antibiotics - IV fluids Plan discussed with Dr. Delacruz Plan discussed with: Patient, Other (RN Thierno) JONNY MARTINEZ RESIDENT Jun 07, 2025 16:02
[2025-06-07 17:04] VITALS: BP 119/82; PULSE 80; RESP 16; TEMP 97.9; O2SAT 96
[2025-06-07 20:00] VITALS: PULSE 93
[2025-06-07] MEDS ORDERED: IOHEXOL 350 MG/ML 100ML IJ ONE (22:30)
[2025-06-07] MEDS: CITALOPRAM HYDROBR 20 MG TAB PO SCH (22:39)
[2025-06-07] MEDS: DOCUSATE SOD 100 MG CAP PO SCH (22:40)
--- NOTE | 2025-06-07 23:06 | DVH ---
INDICATION: left side weakness and left facial numbness COMPARISON: None TECHNIQUE: CTA head with intravenous contrast. CTA neck with intravenous contrast. 3D image postp rocessing was performed on a dedicated workstation and images were used for interpretation and report ing. Radiation Dose Information: CT Dose: CTDI volume is 29.81 mGy. Dose-length product is 3.16 mGy*cm FINDINGS: CTA head: There is normal enhancement of the visualized distal internal carotid, anterior and middle cerebral a rteries. There is a normal anterior communicating artery complex. There are bilateral posterior com municating arteries. The vertebral, basilar, cerebellar and posterior cerebral arteries are within n ormal limits. The early parenchymal enhancement is grossly unremarkable. The visualized intracrania l venous structures are grossly unremarkable. CTA neck: The visualized thoracic aortic arch and proximal great vessels are unremarkable. The left common, internal and external carotid arteries are within normal limits. The right common, internal and external carotid arteries are within normal limits. The cervical segments of the right and left vertebral arteries are within normal limits. The limited visualized lung apices are clear. The surrounding soft tissues and osseous structures ar e otherwise unremarkable. IMPRESSION: 1. No evidence of hemodynamically significant intracranial stenosis, proximal occlusion or aneurysm. 2. No evidence of hemodynamically significant cervical stenosis or dissection. All CT scans at this medical facility are performed using dose modulation techniques as appropriate t o a performed exam including the following: Automated exposure control was utilized; adjustment of th e MA and/or KV according to patient size; and use of iterative reconstruction technique.
[2025-06-08 08:00] VITALS: PULSE 80
[2025-06-08 08:09] LABS: Anion Gap 8 (5-15); Carbon Dioxide 27 mmol/L (20-31); Hematocrit 45.6 % (41.0-53.0); Hemoglobin 15.8 g/dL (13.5-17.5); Mean Corpuscular Hemoglobin 32.0 pg (28.0-32.0); Mean Corpuscular Volume 92.3 fL (80.0-100.0); Nucleated Red Blood Cells % 0.1 %; Potassium 4.2 mmol/L (3.5-5.1); Sodium 145 mmol/L (136-145)
[2025-06-08 08:10] LABS: Calcium 8.9 mg/dL (8.7-10.4)
[2025-06-08 08:15] LABS: BUN/Creatinine Ratio 12.3 (10.0-20.0)
[2025-06-08 08:40] LABS: Blood Urea Nitrogen 9 mg/dL (9-23); Chloride 110 mmol/L (98-107); Glucose 130 mg/dL (74-106)
[2025-06-08 09:55] VITALS: BP 121/92; PULSE 78; RESP 17; TEMP 98; O2SAT 98
[2025-06-08] MEDS ORDERED: CITALOPRAM HYDROBR 20 MG TAB PO SCH ×2 (10:00)
[2025-06-08] MEDS: GOLYTELY 4L KIT PO ONE (10:08)
[2025-06-08 12:39] VITALS: BP 123/92; PULSE 84; RESP 20; O2SAT 97
--- NOTE | 2025-06-08 14:17 | DVHPN2 ---
Subjective 44-year-old male with a known history of previous diverticulitis presented to the hospital with a generalized weakness and rectal bleeding worsening for last five weeks. Patient is currently scheduled for colonoscopy tomorrow a.m.. Changes from previous H/P or p: No Changes Eyes: No Pain, No Vision change, No Conjunctivae inflammation, No Eyelid inflammation, No Other, No Redness ENT: No Ear pain, No Ear discharge, No Nose pain, No Nose discharge, No Nose congestion, No Mouth pain, No Mouth swelling, No Throat pain, No Throat swelling, No Other Cardiovascular: No Chest Pain, No Palpitations, No Orthopnea, No Paroxysmal Noc. Dyspnea, No Edema, No Lt Headedness, No Other Respiratory: No Cough, No Dry, No Shortness of breath, No SOB with excertion, No Wheezing, No Hemoptysis, No Pleuritic Pain, No Sputum, No Other Gastrointestinal: No Nausea, No Vomiting; Abdominal Pain, Diarrhea; No Constipation; Melena, Hematochezia; No Other Genitourinary: No Dysuria, No Frequency, No Incontinence, No Hematuria, No Retention, No Other Musculoskeletal: No other, No neck pain, No shoulder pain, No arm pain, No back pain, No hand pain, No leg pain, No foot pain Skin: No Rash, No Lesions, No Jaundice, No Bruising, No Other Objective Vitals Vital Signs Date Time Temp Pulse Resp B/P (MAP) Pulse Ox O2 Delivery O2 Flow Rate FiO2 06/08/25 12:39 84 20 123/92 (102) 97 06/08/25 09:55 Room Air* 0 21 06/08/25 09:55 98.0 98.0 Intake/Output Intake and Output 06/08/25 07:00 Intake Total 410 ml Balance 410 ml Intake Oral 310 ml IV Total 100 ml # Voids 1 Exam HEENT pupils are reactive Neck is supple CV is S1-S2 regular rate and rhythm Respiratory diminished breath sounds bases GI positive bowel sound, soft nondistended nontender no guarding no rigidity. 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 Medications Current Medications Medications Dose Ordered Sig/Thad Route Start Time Stop Time Status Last Admin Dose Admin Acetaminophen 650 mg Q6HP PRN PO 06/07/25 03:30 Acetaminophen/ Hydrocodone Bitart 1 tab Q4HP PRN PO 06/07/25 03:30 06/08/25 11:22 1 TAB Ondansetron HCl 4 mg Q4HP PRN IV 06/07/25 03:30 Morphine Sulfate 2 mg Q4HPRN PRN IV 06/07/25 03:30 Hold Nitroglycerin 0.4 mg Q5MINP PRN SL 06/07/25 03:30 Morphine Sulfate 2 mg Q30M PRN IV 06/07/25 03:30 Pantoprazole Sodium 40 mg DAILY IV 06/07/25 10:00 06/08/25 10:08 40 MG Metronidazole 100 ml @ 100 mls/hr TID IV 06/07/25 06:00 06/08/25 06:55 100 MLS/HR Levofloxacin/ Dextrose 100 ml @ 100 mls/hr DAILY IV 06/07/25 10:00 06/08/25 10:07 100 MLS/HR Lisinopril 10 mg DAILY PO 06/07/25 10:00 06/08/25 10:08 10 MG Hydralazine HCl 10 mg Q6HP PRN IV 06/07/25 08:15 Polyethylene Glycol 17 gm DAILYPRN PRN PO 06/07/25 14:30 Citalopram Hydrobromide 40 mg DAILY PO 06/08/25 10:00 Cancel Docusate Sodium 100 mg BID PO 06/07/25 22:00 06/08/25 10:08 100 MG Citalopram Hydrobromide 40 mg HS PO 06/07/25 22:00 06/07/25 22:39 40 MG Lorazepam 0.5 mg PRN PRN PO 06/07/25 20:30 Laboratory Results Laboratory Tests 06/08/25 07:19 Chemistry Test 06/08/25 07:19 Calcium Level 8.9 mg/dL (8.7-10.4) Urinalysis Test 06/07/25 01:20 Urine Color Yellow (Yellow) Urine Clarity Clear (Clear) Urine pH 5.5 (5.0-9.0) Urine Specific [place] > 1.050 (1.001-1.035) Urine Protein Trace (Negative) H Urine Ketones Negative (Negative) Urine Blood Negative /uL (Negative) Urine Nitrite Negative (Negative) Urine Bilirubin Negative (Negative) Urine Urobilinogen 2 mg/dL (Negative) H Urine Leukocyte Esterase Negative /uL (Negative) Urine RBC 1 /hpf (0 - 3) Urine Microscopic WBC < 1 /HPF (0-3) Urine Squamous Epithelial Cells None seen /hpf (<5) Urine Bacteria None seen /hpf (None Seen) Urine Mucus Few (None Seen) Urine Glucose Normal mg/dL (Normal) Assessment/Plan Assessment/Plan 44-year-old male with a known history of previously diverticulitis, anxiety disorder presented to the hospital with a rectal bleeding worsening for last five weeks found to have 1. Lower GI bleed 2. Leukocytosis 3. Lactic acidosis 4. Anxiety disorder -clear liquid diet, colon prep today, colonoscopy tomorrow per GI. -plan of care discussed with the patient who understand verbalized the understanding and agreeable to plan. Plan discussed with: Patient Problem List: (1) GI bleed (2) Leukocytosis Date of Service: Jun 08, 2025 Billing Provider: TOM SANDOVAL MD Common Visit Codes: NOT BILLABLE TOM SANDOVAL MD Jun 08, 2025 14:16
[2025-06-08] MEDS: LORazepam 0.5 MG TAB PO PRN (15:27)
[2025-06-08 16:36] VITALS: BP_SYST 116; BP_SYST 127; BP_DIAS 72; BP_DIAS 84; PULSE 68; RESP 17; RESP 18; TEMP 98.1; TEMP 98.3; O2SAT 96
--- NOTE | 2025-06-08 16:41 | MEDREC ---
[facility] ASP Intervention Section I [facility] ASP Intervention: Review courses of therapy (Levofloxacin indicated for diverticulitis with a dose of 750mg IV once daily. May consider increasing dose if/when clinically appropriate.) LETTY RICHARDS [facility] RESIDENT Jun 08, 2025 16:41
[2025-06-08 20:00] VITALS: PULSE 71; PULSE 91; RESP 18
--- NOTE | 2025-06-08 20:44 | DVHPN2 ---
Progress Note - Dictate Date Seen: Jun 08, 2025 Medical Necessity Reason Pt with a Central, PICC or Fol: No Subjective No new complaints Tolerating bowel prep c/o rectal bleeding vital signs Vital Sign Date Time Temp Pulse Resp B/P (MAP) Pulse Ox O2 Delivery O2 Flow Rate FiO2 06/08/25 16:36 98.1 68 18 127/84 (98) 96 98.1 06/08/25 09:55 Room Air* 0 21 Total Intake and Output 06/07/25 06/07/25 06/08/25 15:00 23:00 07:00 Intake Total 100 ml 60 ml 250 ml Balance 100 ml 60 ml 250 ml medications Current Medications Medications Dose Ordered Sig/Thad Route Start Time Stop Time Status Last Admin Dose Admin Acetaminophen 650 mg Q6HP PRN PO 06/07/25 03:30 Acetaminophen/ Hydrocodone Bitart 1 tab Q4HP PRN PO 06/07/25 03:30 06/08/25 19:52 1 TAB Ondansetron HCl 4 mg Q4HP PRN IV 06/07/25 03:30 Morphine Sulfate 2 mg Q4HPRN PRN IV 06/07/25 03:30 Hold Nitroglycerin 0.4 mg Q5MINP PRN SL 06/07/25 03:30 Morphine Sulfate 2 mg Q30M PRN IV 06/07/25 03:30 Pantoprazole Sodium 40 mg DAILY IV 06/07/25 10:00 06/08/25 10:08 40 MG Metronidazole 100 ml @ 100 mls/hr TID IV 06/07/25 06:00 06/08/25 14:45 100 MLS/HR Levofloxacin/ Dextrose 100 ml @ 100 mls/hr DAILY IV 06/07/25 10:00 06/08/25 10:07 100 MLS/HR Lisinopril 10 mg DAILY PO 06/07/25 10:00 06/08/25 10:08 10 MG Hydralazine HCl 10 mg Q6HP PRN IV 06/07/25 08:15 Polyethylene Glycol 17 gm DAILYPRN PRN PO 06/07/25 14:30 Citalopram Hydrobromide 40 mg DAILY PO 06/08/25 10:00 Cancel Docusate Sodium 100 mg BID PO 06/07/25 22:00 06/08/25 10:08 100 MG Citalopram Hydrobromide 40 mg HS PO 06/07/25 22:00 06/07/25 22:39 40 MG Lorazepam 0.5 mg PRN PRN PO 06/07/25 20:30 06/08/25 15:27 0.5 MG objective HEENT pupils are reactive Neck is supple CV is S1-S2 regular rate and rhythm Respiratory diminished breath sounds bases GI positive bowel sound, soft nondistended nontender no guarding no rigidity. 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 Patient is going to be given Zyrtec or Claritin for his allergies Colonoscopy scheduled for 06/09/2025 Plan discussed with: Other (Nurse and Dr Waters) ISAC RANDLE MD Jun 08, 2025 20:44
[2025-06-08 21:00] VITALS: BP 149/95; PULSE 94; RESP 20; TEMP 97.6; O2SAT 96
[2025-06-08] MEDS: LORATADINE 10 MG TAB PO ONE (22:10)
[2025-06-09] VITALS (18 sets, daily range): BP systolic 91–132; BP diastolic 53–94; PULSE 66–115; RESP 10–20; TEMP 97.6–98.6; O2SAT 93–98
[2025-06-09 04:27] LABS: Hematocrit 48.3 % (41.0-53.0); Hemoglobin 16.5 g/dL (13.5-17.5); Mean Corpuscular Hemoglobin 31.5 pg (28.0-32.0); Mean Corpuscular Volume 92.0 fL (80.0-100.0); Nucleated Red Blood Cells % 0.1 %
[2025-06-09 04:36] LABS: INR 0.97 (0.9-1.15); Partial Thromboplastin Time 27.2 SEC (24.5-34.5); Prothrombin Time 10.3 sec (9.3-11.8)
[2025-06-09 04:37] LABS: Anion Gap 6 (5-15); Carbon Dioxide 31 mmol/L (20-31); Chloride 107 mmol/L (98-107); Potassium 4.7 mmol/L (3.5-5.1); Sodium 144 mmol/L (136-145)
[2025-06-09 04:38] LABS: Calcium 9.7 mg/dL (8.7-10.4)
[2025-06-09 04:43] LABS: BUN/Creatinine Ratio 9.3 (10.0-20.0); Glucose 96 mg/dL (74-106)
[2025-06-09 04:52] LABS: Blood Urea Nitrogen 7 mg/dL (9-23)
[2025-06-09] MEDS: MAGNESIUM CITRATE SOLUTION 300 ML BTL PO ONE (05:23)
[2025-06-09] MEDS: GOLYTELY 4L KIT PO ONE (05:24)
--- NOTE | 2025-06-09 08:40 | DVH ---
CHEST RADIOGRAPH Indication: pending procedure, pain Technique: Single frontal view of the chest was obtained Comparison: CHEST TWO VIEWS ROUTINE on DOS: 10/25/21, CHEST TWO VIEWS ROUTINE on DOS: 03/22/21 FINDINGS: Lines and Tubes: None Lungs: No focal consolidation. Pleura: No effusion. No pneumothorax. Cardiomediastinal contours: Unremarkable Bones: No acute osseous abnormality. IMPRESSION: No acute cardiopulmonary disease.
[2025-06-09] MEDS ORDERED: fentaNYL CITRATE 100 MCG/2 ML VL ONE (09:20)
[2025-06-09] MEDS ORDERED: MIDAZOLAM HCL 2MG/2ML 2ml VIAL (1mg/ml) ONE (09:20)
[2025-06-09] MEDS ORDERED: PROPOFOL 10 MG/ML 20 ML IV ONE (09:34)
[2025-06-09] MEDS ORDERED: KETAMINE 50mg/ML 10ml Vial 10 ML ONE (09:35)
--- NOTE | 2025-06-09 10:12 | DVHOP2 ---
Operative Report DATE OF OPERATION: 06/09/25 PROCEDURE: Colonoscopy with hot snare polypectomy. PREOPERATIVE INDICATION: The patient is a 44 -year-old male undergoing colonoscopy for rectal bleeding POSTOPERATIVE DIAGNOSES: 1. 2 cm sigmoid polyp on a short stalk was seen and removed completely via hot snare polypectomy 2. 2-3 mm benign-appearing rectal polyp was seen and removed via hot snare polypectomy and the specimens were retrieved 3. Moderate left colon diverticular disease most prominent in the sigmoid 4. Trace internal hemorrhoids otherwise completely normal colonoscopy examination up to the cecum PROCEDURE PERFORMED BY: Isac Delacruz M.D. SCOPE: Olympus videocolonoscope. ASA CLASS: 3. PREOPERATIVE MEDICATIONS: Mac Dr. Davon cole PROCEDURE IN DETAIL: After obtaining an informed consent, the patient was placed on left lateral decubitus position. He was then sedated with the above medications. A rectal examination was performed that was normal. The colonoscope was then passed through the anus into the rectosigmoid and through the descending, transverse, and ascending colon up to the cecum with visualization of the appendiceal orifice, base of the cecum and the ileocecal valve. The colonoscope was then withdrawn. No masses or colitis were seen. Patient had moderate left colon diverticular disease most prominent in the sigmoid There was a 2 cm polyp on a short stalk seen at about 20 cm above the anal verge This was removed by hot snare polypectomy and the specimens were retrieved. On retroflexion and straight on view the patient had a 2-3 mm benign-appearing polyp seen in the rectum just above the anal verge This was removed by hot snare polypectomy and the specimens were retrieved. On retroflexion and straight on view he had trace internal hemorrhoids The patient tolerated the procedure well without difficulty. WITHDRAWAL TIME: 12 minutes QUALITY OF THE PREP: Alfred Bowel Prep score: 9. COMPLICATIONS : None SPECIMENS: Sigmoid colon polyp Rectal polyp DISPOSITION: Transfer back to the floor Stable PLAN: 1. Repeat colonoscopy base on biopsy result likely in 2-3 years 2. Resume full liquid diet advance to soft mechanical 3. Hold aspirin NSAIDs blood thinners for one week 4. Outpatient follow up with me in 4-6 weeks to review results and discuss further management ISAC DELACRUZ MD Jun 09, 2025 10:12
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
[2025-06-09] MEDS: PHYTONADIONE (VIT K)10 MG/ML 1ML VIAL SUBCUT ONE (16:28)
--- NOTE | 2025-06-09 16:51 | DVHPN2 ---
Subjective 44-year-old male with a known history of previous diverticulitis presented to the hospital with a generalized weakness and rectal bleeding worsening for last five weeks. Patient is currently scheduled for colonoscopy tomorrow a.m.. Changes from previous H/P or p: No Changes Eyes: No Pain, No Vision change, No Conjunctivae inflammation, No Eyelid inflammation, No Other, No Redness ENT: No Ear pain, No Ear discharge, No Nose pain, No Nose discharge, No Nose congestion, No Mouth pain, No Mouth swelling, No Throat pain, No Throat swelling, No Other Cardiovascular: No Chest Pain, No Palpitations, No Orthopnea, No Paroxysmal Noc. Dyspnea, No Edema, No Lt Headedness, No Other Respiratory: No Cough, No Dry, No Shortness of breath, No SOB with excertion, No Wheezing, No Hemoptysis, No Pleuritic Pain, No Sputum, No Other Gastrointestinal: Abdominal Pain, Diarrhea, Melena, Hematochezia Genitourinary: No Dysuria, No Frequency, No Incontinence, No Hematuria, No Retention, No Other Musculoskeletal: No other, No neck pain, No shoulder pain, No arm pain, No back pain, No hand pain, No leg pain, No foot pain Skin: No Rash, No Lesions, No Jaundice, No Bruising, No Other Objective Vitals Vital Signs Date Time Temp Pulse Resp B/P (MAP) Pulse Ox O2 Delivery O2 Flow Rate FiO2 06/09/25 13:00 98.6 105 19 132/88 (103) 96 98.6 06/09/25 09:40 Mask 7.0 06/09/25 08:30 21 Intake/Output Intake and Output 06/09/25 07:00 Intake Total 1386.6 ml Balance 1386.6 ml Intake Oral 980 ml IV Total 406.6 ml # Voids 4 # Bowel Movements 9 Exam HEENT pupils are reactive Neck is supple CV is S1-S2 regular rate and rhythm Respiratory diminished breath sounds bases GI positive bowel sound, soft nondistended nontender no guarding no rigidity. 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 Medications Current Medications Medications Dose Ordered Sig/Thad Route Start Time Stop Time Status Last Admin Dose Admin Acetaminophen 650 mg Q6HP PRN PO 06/07/25 03:30 Acetaminophen/ Hydrocodone Bitart 1 tab Q4HP PRN PO 06/07/25 03:30 06/09/25 13:46 1 TAB Ondansetron HCl 4 mg Q4HP PRN IV 06/07/25 03:30 Morphine Sulfate 2 mg Q4HPRN PRN IV 06/07/25 03:30 Hold Nitroglycerin 0.4 mg Q5MINP PRN SL 06/07/25 03:30 Morphine Sulfate 2 mg Q30M PRN IV 06/07/25 03:30 Pantoprazole Sodium 40 mg DAILY IV 06/07/25 10:00 06/09/25 11:24 40 MG Metronidazole 100 ml @ 100 mls/hr TID IV 06/07/25 06:00 06/09/25 13:44 100 MLS/HR Levofloxacin/ Dextrose 100 ml @ 100 mls/hr DAILY IV 06/07/25 10:00 06/08/25 10:07 100 MLS/HR Lisinopril 10 mg DAILY PO 06/07/25 10:00 06/09/25 11:24 10 MG Hydralazine HCl 10 mg Q6HP PRN IV 06/07/25 08:15 Polyethylene Glycol 17 gm DAILYPRN PRN PO 06/07/25 14:30 Citalopram Hydrobromide 40 mg DAILY PO 06/08/25 10:00 Cancel Docusate Sodium 100 mg BID PO 06/07/25 22:00 06/08/25 21:47 100 MG Citalopram Hydrobromide 40 mg HS PO 06/07/25 22:00 06/08/25 21:47 40 MG Lorazepam 0.5 mg PRN PRN PO 06/07/25 20:30 06/09/25 16:27 0.5 MG Laboratory Results Laboratory Tests 06/09/25 03:55 06/09/25 05:00 Chemistry Test 06/09/25 05:00 Calcium Level 9.7 mg/dL (8.7-10.4) Coagulation Test 06/09/25 03:55 Prothrombin Time 10.3 sec (9.3-11.8) Prothrombin Time INR 0.97 (0.9-1.15) Activated Partial Thromboplast Time 27.2 SEC (24.5-34.5) Urinalysis Test 06/07/25 01:20 Urine Color Yellow (Yellow) Urine Clarity Clear (Clear) Urine pH 5.5 (5.0-9.0) Urine Specific [place] > 1.050 (1.001-1.035) Urine Protein Trace (Negative) H Urine Ketones Negative (Negative) Urine Blood Negative /uL (Negative) Urine Nitrite Negative (Negative) Urine Bilirubin Negative (Negative) Urine Urobilinogen 2 mg/dL (Negative) H Urine Leukocyte Esterase Negative /uL (Negative) Urine RBC 1 /hpf (0 - 3) Urine Microscopic WBC < 1 /HPF (0-3) Urine Squamous Epithelial Cells None seen /hpf (<5) Urine Bacteria None seen /hpf (None Seen) Urine Mucus Few (None Seen) Urine Glucose Normal mg/dL (Normal) Assessment/Plan Assessment/Plan 44-year-old male with a known history of previously diverticulitis, anxiety disorder presented to the hospital with a rectal bleeding worsening for last five weeks found to have 1. Lower GI bleed 2. Leukocytosis 3. Lactic acidosis 4. Anxiety disorder -FFP, vitamin K one dose, monitor H&H -c diet as tolerated, patient probably bleeding from the rectal polyp site but watch him one more day. -plan of care discussed with the patient who understand verbalized the understanding and agreeable to plan. Plan discussed with: Patient Date of Service: Jun 09, 2025 Billing Provider: TOM SANDOVAL MD Common Visit Codes: NOT BILLABLE TOM SANDOVAL MD Jun 09, 2025 16:51
[2025-06-09 19:36] LABS: Hematocrit 41.1 % (41.0-53.0); Hemoglobin 13.8 g/dL (13.5-17.5); Mean Corpuscular Hemoglobin 31.3 pg (28.0-32.0); Mean Corpuscular Volume 92.8 fL (80.0-100.0); Nucleated Red Blood Cells % 0.1 %
[2025-06-09] MEDS: LORazepam 2MG/ML-1ML VIAL IV PRN (22:45)
[2025-06-09] MEDS: HYDROmorphone HCL 2 MG/ML VL/or syr IV PRN (22:51)
[2025-06-10] VITALS (37 sets, daily range): BP systolic 76–117; BP diastolic 49–80; PULSE 74–103; RESP 8–26; TEMP 97.7–98.3; O2SAT 88–100
[2025-06-10] MEDS: D5W/SOD CHL 0.45% 1,000 ML IV SCH (00:31)
[2025-06-10 00:52] LABS: Hematocrit 37.0 % (41.0-53.0); Hemoglobin 12.4 g/dL (13.5-17.5)
[2025-06-10] MEDS: NICOTINE 14 MG/24HR TOPICAL PATCH TD SCH (01:37)
[2025-06-10 14:53] LABS: Hematocrit 32.2 % (41.0-53.0); Hemoglobin 10.9 g/dL (13.5-17.5); Mean Corpuscular Hemoglobin 31.4 pg (28.0-32.0); Mean Corpuscular Volume 93.1 fL (80.0-100.0); Nucleated Red Blood Cells % 0.1 %
[2025-06-10 15:03] LABS: Anion Gap 7 (5-15); Carbon Dioxide 26 mmol/L (20-31); Potassium 3.7 mmol/L (3.5-5.1); Sodium 143 mmol/L (136-145)
[2025-06-10 15:09] LABS: BUN/Creatinine Ratio 13.8 (10.0-20.0); Chloride 110 mmol/L (98-107); Glucose 98 mg/dL (74-106)
[2025-06-10 15:10] LABS: Blood Urea Nitrogen 9 mg/dL (9-23); Calcium 8.4 mg/dL (8.7-10.4)
[2025-06-10 15:11] LABS: Alanine Aminotransferase 24.0 U/L (7-40); Albumin 3.6 g/dL (3.2-4.8); Bilirubin, Total 0.8 mg/dL (0.2-1.0); Total Protein 5.8 g/dL (5.7-8.2)
[2025-06-10 15:12] LABS: Alkaline Phosphatase 45.0 U/L (46-116); Bilirubin, Direct 0.3 mg/dL (<0.3)
--- NOTE | 2025-06-10 18:02 | DVHPN2 ---
Subjective 44-year-old male with a known history of previous diverticulitis presented to the hospital with a generalized weakness and rectal bleeding worsening for last five weeks. Patient is status post colonoscopy with removal of polyps. There is a concern for post polypectomy bleeding. Changes from previous H/P or p: No Changes Eyes: No Pain, No Vision change, No Conjunctivae inflammation, No Eyelid inflammation, No Other, No Redness ENT: No Ear pain, No Ear discharge, No Nose pain, No Nose discharge, No Nose congestion, No Mouth pain, No Mouth swelling, No Throat pain, No Throat swelling, No Other Cardiovascular: No Chest Pain, No Palpitations, No Orthopnea, No Paroxysmal Noc. Dyspnea, No Edema, No Lt Headedness, No Other Respiratory: No Cough, No Dry, No Shortness of breath, No SOB with excertion, No Wheezing, No Hemoptysis, No Pleuritic Pain, No Sputum, No Other Gastrointestinal: Abdominal Pain, Diarrhea, Melena, Hematochezia Genitourinary: No Dysuria, No Frequency, No Incontinence, No Hematuria, No Retention, No Other Musculoskeletal: No other, No neck pain, No shoulder pain, No arm pain, No back pain, No hand pain, No leg pain, No foot pain Skin: No Rash, No Lesions, No Jaundice, No Bruising, No Other Objective Vitals Vital Signs Date Time Temp Pulse Resp B/P (MAP) Pulse Ox O2 Delivery O2 Flow Rate FiO2 06/10/25 16:15 103 06/10/25 14:45 16 100 06/10/25 14:00 104/65 (78) 06/10/25 12:00 98.0 98.0 06/10/25 08:00 Room Air* 0 21 Intake/Output Intake and Output 06/10/25 07:00 Intake Total 2439 ml Output Total 1200 ml Balance 1239 ml Intake Oral 450 ml IV Total 725 ml Blood Product 765 ml Other 499 ml Stool Total 200 ml Urine/Stool Mix 1000 ml # Voids 6 # Bowel Movements 10 Exam HEENT pupils are reactive Neck is supple CV is S1-S2 regular rate and rhythm Respiratory diminished breath sounds bases GI positive bowel sound, soft nondistended nontender no guarding no rigidity. 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 Medications Current Medications Medications Dose Ordered Sig/Thad Route Start Time Stop Time Status Last Admin Dose Admin Acetaminophen 650 mg Q6HP PRN PO 06/07/25 03:30 Acetaminophen/ Hydrocodone Bitart 1 tab Q4HP PRN PO 06/07/25 03:30 06/09/25 13:46 1 TAB Ondansetron HCl 4 mg Q4HP PRN IV 06/07/25 03:30 Nitroglycerin 0.4 mg Q5MINP PRN SL 06/07/25 03:30 Morphine Sulfate 2 mg Q30M PRN IV 06/07/25 03:30 Pantoprazole Sodium 40 mg DAILY IV 06/07/25 10:00 06/10/25 10:17 40 MG Metronidazole 100 ml @ 100 mls/hr TID IV 06/07/25 06:00 06/10/25 13:59 100 MLS/HR Levofloxacin/ Dextrose 100 ml @ 100 mls/hr DAILY IV 06/07/25 10:00 06/10/25 10:18 100 MLS/HR Lisinopril 10 mg DAILY PO 06/07/25 10:00 06/09/25 11:24 10 MG Hydralazine HCl 10 mg Q6HP PRN IV 06/07/25 08:15 Polyethylene Glycol 17 gm DAILYPRN PRN PO 06/07/25 14:30 Citalopram Hydrobromide 40 mg DAILY PO 06/08/25 10:00 Cancel Docusate Sodium 100 mg BID PO 06/07/25 22:00 06/08/25 21:47 100 MG Citalopram Hydrobromide 40 mg HS PO 06/07/25 22:00 06/08/25 21:47 40 MG Lorazepam 0.25 mg Q6HP PRN IV 06/09/25 20:45 06/09/25 22:45 0.25 MG Hydromorphone HCl 0.25 mg Q4HPRN PRN IV 06/09/25 20:45 06/10/25 08:11 0.25 MG Dextrose/Sodium Chloride 1,000 ml @ 75 mls/hr [id number] IV 06/09/25 22:00 06/10/25 00:31 75 MLS/HR Nicotine 1 patch QAM TD 06/11/25 07:00 Laboratory Results Laboratory Tests 06/10/25 14:32 Chemistry Test 06/10/25 14:32 Albumin 3.6 g/dL (3.2-4.8) Calcium Level 8.4 mg/dL (8.7-10.4) L Total Protein 5.8 g/dL (5.7-8.2) LFT Test 06/10/25 14:32 Alanine Aminotransferase (ALT) 24 U/L (7-40) Alkaline Phosphatase 45 U/L (46-116) L Aspartate Amino Transferase (AST) 24 U/L (13-40) Direct Bilirubin 0.3 mg/dL (<0.3) Total Bilirubin 0.8 mg/dL (0.2-1.0) Urinalysis Test 06/07/25 01:20 Urine Color Yellow (Yellow) Urine Clarity Clear (Clear) Urine pH 5.5 (5.0-9.0) Urine Specific [place] > 1.050 (1.001-1.035) Urine Protein Trace (Negative) H Urine Ketones Negative (Negative) Urine Blood Negative /uL (Negative) Urine Nitrite Negative (Negative) Urine Bilirubin Negative (Negative) Urine Urobilinogen 2 mg/dL (Negative) H Urine Leukocyte Esterase Negative /uL (Negative) Urine RBC 1 /hpf (0 - 3) Urine Microscopic WBC < 1 /HPF (0-3) Urine Squamous Epithelial Cells None seen /hpf (<5) Urine Bacteria None seen /hpf (None Seen) Urine Mucus Few (None Seen) Urine Glucose Normal mg/dL (Normal) Assessment/Plan Assessment/Plan 44-year-old male with a known history of previously diverticulitis, anxiety disorder presented to the hospital with a rectal bleeding worsening for last five weeks found to have 1. Lower GI bleed status post colonoscopy with polyps removal, concern for post polypectomy bleeding 2. Leukocytosis 3. Lactic acidosis 4. Anxiety disorder -close monitoring with a H&H, patient may need a repeat colonoscopy if bleeding -c diet as tolerated, patient probably bleeding from the rectal polyp site but watch him one more day. -plan of care discussed with the patient who understand verbalized the understanding and agreeable to plan. Plan discussed with: Patient My Orders Orders - TOM SANDOVAL MD Procedure Category Date Status Time Nicotine 14mg/24hr PHA 06/11/25 In Process (Nicoderm 14mg/24hr) 07:00 Transfer Orders XFER 06/10/25 Transmitted 14:49 Date of Service: Jun 10, 2025 Billing Provider: TOM SANDOVAL MD Common Visit Codes: [id number] INP/OBS CARE(HIGH) TOM SANDOVAL MD Jun 10, 2025 18:02
[2025-06-10 20:25] LABS: Hematocrit 32.1 % (41.0-53.0); Hemoglobin 11.1 g/dL (13.5-17.5)
--- NOTE | 2025-06-10 23:17 | DVHPN2 ---
Progress Note - Dictate Date Seen: Jun 10, 2025 (Late entryTime of visit 9:30 a.m.) Medical Necessity Reason Pt with a Central, PICC or Fol: No Subjective Patient developed moderate post colonoscopy likely post polypectomy bleeding last evening and this morning Patient was kept NPO however he was noncompliant with the NPO order and kept asking to eat This morning apparently his bleeding is starting to slow down and he is feeling better He was given one dose of vitamin K last evening, 2 units of FFP and 1 unit of PRBC last night Repeat hemoglobin this morning dropped down from 12.4 to 10.9 vital signs Vital Sign Date Time Temp Pulse Resp B/P (MAP) Pulse Ox O2 Delivery O2 Flow Rate FiO2 06/10/25 16:15 103 06/10/25 14:45 16 100 06/10/25 14:00 104/65 (78) 06/10/25 12:00 98.0 98.0 06/10/25 08:00 Room Air* 0 21 Total Intake and Output 06/09/25 06/09/25 06/10/25 15:00 23:00 07:00 Intake Total 200 ml 450 ml 1789 ml Output Total 200 ml 1000 ml Balance 200 ml 250 ml 789 ml medications Current Medications Medications Dose Ordered Sig/Thad Route Start Time Stop Time Status Last Admin Dose Admin Citalopram Hydrobromide 40 mg DAILY PO 06/08/25 10:00 Cancel objective HEENT pupils are reactive Neck is supple CV is S1-S2 regular rate and rhythm Respiratory diminished breath sounds bases GI positive bowel sound, soft nondistended nontender no guarding no rigidity. 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 Laboratory Tests 06/10/25 19:53 06/10/25 14:32 Test 06/10/25 14:32 Range/Units Serum Glucose 98 74-106 mg/dL Problems(with codes): (1) Post-polypectomy bleeding (2) Colon polyp (3) Diverticulosis of colon (4) Hematochezia (5) GI bleed (6) Rectal bleed (7) Left lower quadrant pain Prognosis Plan Patient was recommended ongoing inpatient observation for another 24-48 hours Patient will be kept NPO except for ice chips this morning and later this evening he was started on clear liquids Bleeding apparently resolved later this evening and H&H stabilized I was notified by the nurse that the patient left AMA this evening and did not want to wait for discharge orders Patient was instructed to return to the ER if he developed any symptoms of ongoing rectal bleeding Patient was counseled about discontinuing marijuana smoking cocaine and also to eat a full liquid diet for another 24-48 hours Plan discussed with: Patient, Other (Nurse and mother) ISAC RANDLE MD Jun 10, 2025 23:17
[2025-06-11] MEDS ORDERED: NICOTINE 14 MG/24HR TOPICAL PATCH TD SCH (07:00)
--- NOTE | 2025-06-11 15:43 | DVHDS2 ---
Discharge Summary Date of Admission Jun 07, 2025 at 03:30 Date of Discharge: Jun 10, 2025 Labs/Diagnostic Data: Laboratory Results Test 06/10/25 19:53 06/10/25 14:32 06/09/25 03:55 06/08/25 12:35 Hemoglobin 11.1 g/dL (13.5-17.5) Hematocrit 32.1 % (41.0-53.0) White Blood Count 8.9 10^3/uL (4.4-10.8) Red Blood Count 3.46 10^6/uL (4.5-5.90) Mean Corpuscular Volume 93.1 fL (80.0-100.0) Mean Corpuscular Hemoglobin 31.4 pg (28.0-32.0) Mean Corpuscular Hemoglobin Concent 33.7 g/dL (32.0-36.0) Red Cell Distribution Width 13.0 % (11.8-14.3) Platelet Count 193 10^3/uL (140-450) Mean Platelet Volume 7.9 fL (6.9-10.8) Neutrophils (%) (Auto) 64.0 % (37.0-80.0) Lymphocytes (%) (Auto) 25.0 % (10.0-50.0) Monocytes (%) (Auto) 9.4 % (0.0-12.0) Eosinophils (%) (Auto) 1.3 % (0.0-7.0) Basophils (%) (Auto) 0.3 % (0.0-2.0) Neutrophils # (Auto) 5.7 10 ^3/uL (1.6-8.6) Lymphocytes # (Auto) 2.2 10 ^3/uL (0.4-5.4) Monocytes # (Auto) 0.8 10 ^3/uL (0-1.3) Eosinophils # (Auto) 0.1 10 ^3/uL (0-0.8) Basophils # (Auto) 0 10 ^3/uL (0-0.2) Nucleated Red Blood Cells 0.1 % Sodium Level 143 mmol/L (136-145) Potassium Level 3.7 mmol/L (3.5-5.1) Chloride Level 110 mmol/L (98-107) Carbon Dioxide Level 26 mmol/L (20-31) Anion Gap 7 (5-15) Blood Urea Nitrogen 9 mg/dL (9-23) Creatinine 0.65 mg/dL (0.700-1.30) Glomerular Filtration Rate Calc 119 mL/min (>90) BUN/Creatinine Ratio 13.8 (10.0-20.0) Serum Glucose 98 mg/dL (74-106) Calcium Level 8.4 mg/dL (8.7-10.4) Total Bilirubin 0.8 mg/dL (0.2-1.0) Direct Bilirubin 0.3 mg/dL (<0.3) Aspartate Amino Transferase (AST) 24 U/L (13-40) Alanine Aminotransferase (ALT) 24 U/L (7-40) Alkaline Phosphatase 45 U/L (46-116) Total Protein 5.8 g/dL (5.7-8.2) Albumin 3.6 g/dL (3.2-4.8) Prothrombin Time 10.3 sec (9.3-11.8) Prothrombin Time INR 0.97 (0.9-1.15) Activated Partial Thromboplast Time 27.2 SEC (24.5-34.5) Stool Occult Blood Neg x1 (Negative) Stool Occult Blood Sample #3 (Negative) Test 06/07/25 02:25 06/07/25 01:20 06/07/25 00:36 Lactic Acid Level 1.2 mmol/L (0.4-2.0) Urine Color Yellow (Yellow) Urine Clarity Clear (Clear) Urine pH 5.5 (5.0-9.0) Urine Specific [place] > 1.050 (1.001-1.035) Urine Protein Trace (Negative) Urine Ketones Negative (Negative) Urine Blood Negative /uL (Negative) Urine Nitrite Negative (Negative) Urine Bilirubin Negative (Negative) Urine Urobilinogen 2 mg/dL (Negative) Urine Leukocyte Esterase Negative /uL (Negative) Urine RBC 1 /hpf (0 - 3) Urine Microscopic WBC < 1 /HPF (0-3) Urine Squamous Epithelial Cells None seen /hpf (<5) Urine Bacteria None seen /hpf (None Seen) Urine Mucus Few (None Seen) Urine Glucose Normal mg/dL (Normal) Urine Opiates Screen Neg (NEGATIVE) Urine Fentanyl Screen Neg (NEGATIVE) Urine Barbiturates Screen Neg (NEGATIVE) Urine Phencyclidine Screen Neg (NEGATIVE) Urine Amphetamines Screen Neg (NEGATIVE) Urine Benzodiazepines Screen Neg (NEGATIVE) Urine Cocaine Screen Pos (NEGATIVE) Urine Cannabinoids Screen Neg (NEGATIVE) Lipase 46 U/L (12-53) Other Laboratory Tests 06/10/25 19:53 06/10/25 14:32 Brief Hx & Hospital Course: 44-year-old male with a known history of previously diverticulitis, anxiety disorder presented to the hospital with a rectal bleeding worsening for last five weeks found to have low GI bleed. Patient was eventually underwent colonoscopy which shows evidence of rectal polyp penicillin mother polyp. Postprocedure patient was still having some rectal bleed. GI recommended with the patient to be staying until rectal bleeding has been stopped. There was a concern for post polypectomy bleeding. Patient left against medical advice before completion of workup and treatment. Condition at Discharge: Undetermined Final Diagnosis/Problems List 1. Lower GI bleed status post colonoscopy with polyps removal 2. Rectal bleeding suspected post polypectomy site bleeding 3. Anxiety disorder 4. Chronic tobacco use disorder 6. patient left against medical advice Discharge Disposition: AMA SNF Discharge Will this Physician continue t: No Discharge Instruct/Medications Scheduled Doxycycline (Monohydrate) (Doxycycline), 100 MG PO BID Escitalopram Oxalate (Lexapro), 20 MG PO DAILY, (Reported) Metronidazole (Flagyl), 1 TAB PO TID Promethazine-Dm (Promethazine Dm 6.25-15 mg/5Ml), 1 MARIELENA PO TID Scheduled PRN Hydrocodone-Acetaminophen (Hydrocodone Bitartrate/AC 5-325 mg), 1 TAB PO Q6HPRN PRN Naloxone HCl (Narcan), 4 MG NA Q5MINP PRN Discharge Statement: "Patient was advised to return to the ER or call 911 if any headaches, dizziness, shortness of breath, chest pain, abdominal pain, bleeding, fevers, or worsening of medical condition. Patient was counseled about treatment plan, medications, possible side effects, patientverbalized understanding. All questions were answered to the best of my ability. This discharge took greater then 30 minutes in planning, reviewing documentation, counseling the patient, and discussing with other team members." ASSESSMENT ASSESSMENT Assessment Date of Service: Jun 10, 2025 Billing Provider: TOM SANDOVAL MD Common Visit Codes: NOT BILLABLE TOM SANDOVAL MD Jun 11, 2025 15:43
== END 2025-06-10 20:25 | disposition left against medical advice (07) | DRG 394 ==
LOC: ER 23:50 → OVERFLOW 06-07 03:30 → TELE-CENTR 06-07 15:09 → DOU 06-09 20:15 → TELE-CENTR 06-10 16:42
PROVIDERS: ADMIT Internal Medicine; ATTEND Internal Medicine
PROC: 0DBP8ZX Excision of Rectum, Via Natural or Artificial Opening Endoscopic, Diagnostic (ICD-10-PCS; 2025-06-09)
PROC: 0DBN8ZZ Excision of Sigmoid Colon, Via Natural or Artificial Opening Endoscopic (ICD-10-PCS; principal; 2025-06-09 09:15)
PROC: 30233N1 Transfusion of Nonautologous Red Blood Cells into Peripheral Vein, Percutaneous Approach (ICD-10-PCS; 2025-06-10)
DX: K62.1 Rectal polyp (principal); E87.20 Acidosis, unspecified; E87.6 Hypokalemia; D72.829 Elevated white blood cell count, unspecified; K63.5 Polyp of colon; F41.9 Anxiety disorder, unspecified; F17.210 Nicotine dependence, cigarettes, uncomplicated; F43.10 Post-traumatic stress disorder, unspecified; K57.30 Diverticulosis of large intestine without perforation or abscess without bleeding; Z53.29 Procedure and treatment not carried out because of patient's decision for other reasons; Z63.4 Disappearance and death of family member; Z79.899 Other long term (current) drug therapy; Z88.0 Allergy status to penicillin; Z91.199 Patient's noncompliance with other medical treatment and regimen due to unspecified reason
CPT/HCPCS: 36415; 45384; 70496; 70498; 71045; 74177; 80048; 80053; 80076; 80307; 81001; 82270; 83605; 83690; 85014; 85018; 85025; 85610; 85730; 86850; 86900; 86901; 86920; 96365; G0378; J1100; J1956; J2250; J2470; J2704; J3430; J3490

== ENCOUNTER 2025-06-13 23:34 | Inpatient (IN) | payer OTHER ==
[~2025-06-13] VITALS: Ht 185.4 cm; Wt 93.5 kg
[~2025-06-13 23:34] MED LIST changes: +ESCI5TAB PO
[2025-06-14 01:06] LABS: Hematocrit 38.7 % (41.0-53.0); Hemoglobin 13.2 g/dL (13.5-17.5); Mean Corpuscular Hemoglobin 31.6 pg (28.0-32.0); Mean Corpuscular Volume 92.5 fL (80.0-100.0); Nucleated Red Blood Cells % 0.1 %
--- NOTE | 2025-06-14 01:07 | ED.PDOC ---
History of Present Illness HPI Comments 44-year-old male recently admitted to this facility for rectal bleeding. Patient underwent colonoscopy showing rectal polyp, biopsy was taken. There was bleeding after the procedure concerning for polypectomy bleeding. Patient left AMA on 06/10. This evening patient noticed a popping sensation in his rectal area. No further rectal bleeding. He now has rectal pain. He is also reporting left arm pain and swelling after IV in the left upper extremity. Patient reports he has not been taking antibiotics at home which were prescribed by the hospitalist team. REVIEW OF SYSTEMS: General: No fever, no chills, HEENT: No neck pain, no blurred vision Cardiac: No chest pain. No palpitations. Lungs: No shortness of breath, GI: + RECTAL PAIN, no vomiting Musculoskeletal: No joint pain , no back pain Skin: No rash, no wound Neuro: No headache, no dizziness, no syncope PHYSICAL EXAM: General: Awake, alert and oriented. No acute distress. Skin: Skin in warm, dry and intact. Appropriate color for ethnicity. HEENT: The head is normocephalic and atraumatic. Conjunctivae are clear without exudates or hemorrhage. Sclera is non-icteric. Eyelids are normal in appearance without swelling or lesions. Oral mucosa is pink and moist Neck: The neck is supple with normal range of motion. No JVD. Cardiac: Heart rate and rhythm are normal. No murmurs, gallops, or rubs are auscultated. Respiratory: No signs of respiratory distress. Lung sounds are clear in all lobes bilaterally without rales, rhonchi, or wheezes. Abdominal: Abdomen is soft, positive suprapubic tenderness, without distention, guarding or rigidity. Bowel sounds are present and normoactive in all four quadrants. Extremity: Tenderness left upper forearm Neurological: The patient is awake, alert and oriented to person, place, and time with normal speech. Speech is clear. There is no facial asymmetry. Psychiatric: Appropriate mood and affect. Good judgement and insight. Chief Complaint: Rectal Pain Time Seen by MD: 23:52 Primary Care Provider: WALTER PMCodie Allergies: Coded Allergies: Penicillins (Verified Allergy, Unknown, 02/22/20) Home Meds Active Scripts Naloxone HCl (Narcan) 4 Mg/0.1 Ml Spr, 4 MG NA Q5MINP PRN, #1 SPRAY Prov:GANAPAVARAPU,AMAN MD 11/07/24 Hydrocodone-Acetaminophen (Hydrocodone Bitartrate/AC 5-325 mg) 1 Tab Tab, 1 TAB PO Q6HPRN PRN, #14 TAB Prov:AMAN SLOAN MD 11/07/24 Metronidazole (Flagyl) 500 Mg Tab, 1 TAB PO TID, #30 TAB Prov:AMAN SLOAN MD 11/07/24 Doxycycline (Monohydrate) (Doxycycline) 100 Mg Cap, 100 MG PO BID, #14 CAP Prov:AMAN SLOAN MD 11/07/24 Promethazine-Dm (Promethazine Dm 6.25-15 mg/5Ml) 1 Marielena Marielena, 1 MARIELENA PO TID, #180 ML Prov:MIKALA GARCES 10/25/21 Reported Medications Escitalopram Oxalate (Lexapro) 5 Mg Tab, 20 MG PO DAILY, #30 TAB 2 Refills 06/07/25 Mode of Arrival: Ambulatory Past Medical History Surgical History: Appendectomy, Tonsillectomy Family History Family History: Reviewed,noncontributory to illness Social History Smoker: Cigarettes Alcohol: Occasionally Drugs: Cocaine Lives In: Home Was a procedure done? Was a procedure done?: No Differential Dx Considerations may include: includes but is not limited to anal fissure, anal cancer, anorectal abscess, hemorrhoids, fecal impaction/constipation, prostatitis other X-Ray, Labs, Meds, VS Vital Signs Date Time Temp Pulse Resp B/P (MAP) Pulse Ox O2 Delivery O2 Flow Rate FiO2 06/14/25 01:24 98.4 06/14/25 01:09 98.3 100 19 146/90 (108) 100 98.3 06/14/25 01:09 100 19 100 Room Air* 0 21 06/13/25 23:36 99.1 108 20 137/98 98 99.1 Lab Test 06/14/25 00:42 Range/Units White Blood Count 13.6 #H 4.4-10.8 10^3/uL Red Blood Count 4.18 L 4.5-5.90 10^6/uL Hemoglobin 13.2 #L 13.5-17.5 g/dL Hematocrit 38.7 #L 41.0-53.0 % Mean Corpuscular Volume 92.5 80.0-100.0 fL Mean Corpuscular Hemoglobin 31.6 28.0-32.0 pg Mean Corpuscular Hemoglobin Concent 34.1 32.0-36.0 g/dL Red Cell Distribution Width 13.0 11.8-14.3 % Platelet Count 294 # 140-450 10^3/uL Mean Platelet Volume 8.0 6.9-10.8 fL Neutrophils (%) (Auto) 58.4 37.0-80.0 % Lymphocytes (%) (Auto) 26.6 10.0-50.0 % Monocytes (%) (Auto) 10.0 0.0-12.0 % Eosinophils (%) (Auto) 4.5 0.0-7.0 % Basophils (%) (Auto) 0.5 0.0-2.0 % Neutrophils # (Auto) 7.9 1.6-8.6 10 ^3/uL Lymphocytes # (Auto) 3.6 0.4-5.4 10 ^3/uL Monocytes # (Auto) 1.4 H 0-1.3 10 ^3/uL Eosinophils # (Auto) 0.6 0-0.8 10 ^3/uL Basophils # (Auto) 0.1 0-0.2 10 ^3/uL Nucleated Red Blood Cells 0.1 % Prothrombin Time 9.7 9.3-11.8 sec Prothrombin Time INR 0.91 0.9-1.15 Sodium Level 140 136-145 mmol/L Potassium Level 3.5 3.5-5.1 mmol/L Chloride Level 104 98-107 mmol/L Carbon Dioxide Level 26 20-31 mmol/L Anion Gap 10 5-15 Blood Urea Nitrogen 11 9-23 mg/dL Creatinine 0.71 0.700-1.30 mg/dL Glomerular Filtration Rate Calc 116 >90 mL/min BUN/Creatinine Ratio 15.5 10.0-20.0 Serum Glucose 104 74-106 mg/dL Calcium Level 9.7 8.7-10.4 mg/dL Current Medications Medications (Trade) Dose Ordered Sig/Thad Route Start Time Stop Time Status Last Admin Tramadol HCl (Ultram) 50 mg ONCE ONCE PO 06/14/25 00:30 06/14/25 00:33 DC 06/14/25 01:24 Acetaminophen (Tylenol Tablet) 650 mg ONCE ONCE PO 06/14/25 00:30 06/14/25 00:33 DC 06/14/25 01:24 Time of 1ST Reevaluation: 00:53 Reevaluation 1ST: Unchanged Patient Education/Counseling: Need For Follow Up Family Education/Counseling: No Family Present SEPSIS Sepsis Screen Date sepsis recognized/suspect: Jun 13, 2025 Time Sepsis recognized/suspect: 2338 Recent Procedure: No On Antibiotic Therapy: No Respiratory Rate >20: No Heart Rate >90: Yes Temp<36 C (96.8 F) or >38.3 C: No SBP <90 or MAP <65 mmHG: No New Acute Mental Status Change: No Is the patient on CPAP, BIPAP,: No Physician Orders Ct Ab Pel Wo Con-No Oral Or Iv (06/14/25 00:29) Saline Lock (06/14/25 00:29) Lt Upper Dvt (06/14/25 01:07) Stool Occult Blood (06/14/25 02:11) Vital Signs Date Time Temp Pulse Resp B/P (MAP) Pulse Ox O2 Delivery O2 Flow Rate FiO2 06/14/25 01:24 98.4 06/14/25 01:09 98.3 100 19 146/90 (108) 100 98.3 06/14/25 01:09 100 19 100 Room Air* 0 21 06/13/25 23:36 99.1 108 20 137/98 98 99.1 Laboratory Tests Test 06/14/25 00:42 White Blood Count 13.6 10^3/uL (4.4-10.8) #H Medications Medications Dose Ordered Sig/Thad Route Start Time Stop Time Status Last Admin Dose Admin Acetaminophen 650 mg ONCE ONCE PO 06/14/25 00:30 06/14/25 00:33 DC 06/14/25 01:24 Tramadol HCl 50 mg ONCE ONCE PO 06/14/25 00:30 06/14/25 00:33 DC 06/14/25 01:24 Departure 1 Departure Time of Disposition: 02:12 Impression: Primary Impression: Rectal pain Additional Impression: Left upper extremity deep vein thrombosis Disposition: ADMITTED INPATIENT Condition: Stable Comments 44-year-old male with recent significant rectal bleeding status post colonoscopy with polypectomy Ultrasound left upper with extremity shows occlusive superficial thrombus of left cephalic vein. Patient admitted to hospitalist service for further treatment, evaluation and monitoring. Discussed with Tomás Juarez Critical Care Note Critical Care Time?: No Stability Stability form required: No Heart Score Heart Score: Heart Score Response (Comments) Value History N/A 0 EKG N/A 0 Age N/A 0 Risk Factors N/A 0 Troponin N/A 0 Total 0 PRINCE MILNER MD Jun 14, 2025 01:07
[2025-06-14 01:09] VITALS: PULSE 100; RESP 19; O2SAT 100
[2025-06-14 01:14] LABS: Chloride 104 mmol/L (98-107); Potassium 3.5 mmol/L (3.5-5.1); Sodium 140 mmol/L (136-145)
[2025-06-14 01:15] LABS: Anion Gap 10 (5-15); Carbon Dioxide 26 mmol/L (20-31)
[2025-06-14 01:16] LABS: Calcium 9.7 mg/dL (8.7-10.4)
[2025-06-14 01:20] LABS: BUN/Creatinine Ratio 15.5 (10.0-20.0); Blood Urea Nitrogen 11 mg/dL (9-23); Glucose 104 mg/dL (74-106)
[2025-06-14] MEDS: ACETAMINOPHEN 325 MG TAB PO ONE (01:24)
--- NOTE | 2025-06-14 01:51 | DVH ---
Exam: CT CT AB PEL WO CON-NO ORAL OR IV History: rectal pain Comparison Study: CT CT AB PEL WO CON-NO ORAL OR IV on DOS: 11/05/24 Technique: Multidetector spiral CT of the abdomen was performed from lung bases to pubic symphysis. I maging was performed without IV contrast. Axial, coronal and sagittal multiplanar reformats were obta ined from the axial data set by the technologist. Radiation Dose : 1. Abdomen/Pelvis: CTDIvol 12 mGy, DLP 667 mGy*cm. Findings: Evaluation of solid organs is limited due to lack of intravenous contrast use. Lower Chest: No acute findings. Liver: Unremarkable. Gallbladder and Biliary Tree: Unremarkable Pancreas: Unremarkable. Spleen: Unremarkable. Adrenal Glands: Unremarkable. Kidneys/Ureters: No urinary stone or obstruction. Bladder: Grossly unremarkable for degree of distention. Pelvic Organs: Unremarkable as visualized. Bowel: Normal caliber without wall thickening. No evidence of appendicitis. Distal colonic diverticul osis without diverticulitis. Vasculature: Unremarkable. Lymphadenopathy: No obvious adenopathy. Peritoneum: No ascites, free air, or fluid collection. Abdominal Wall: No significant hernia. Musculoskeletal: No acute findings. Chronic L5 spondylolysis with L5-S1 spondylosis and spondylolisth esis. IMPRESSION: 1. No acute abdominopelvic abnormality, evidence of urinary stone or obstruction. 2. Colonic diverticulosis. Other chronic and incidental findings as above, not significantly changed from prior exam. Radiation optimization: All CT scans at this facility use at least one of these dose optimization sneha hniques: automated exposure control mA and/or kV adjustment per patient size (includes targeted exam s where dose is matched to clinical indication) or iterative reconstruction.
--- NOTE | 2025-06-14 02:21 | DVH ---
LEFT Upper Extremity Venous Duplex Clinical History: Pain, swelling status post IV Comparison: None Technique: Duplex Doppler evaluation of the venous system of the LEFT lower neck and upper extremity including color Doppler and spectral/pulsed waveform analysis was performed. Findings: Occlusive thrombus within the left cephalic vein. The internal jugular vein demonstrates appropriate compressibility and waveform variability. The subclavian vein is patent on color Doppler evaluation without intraluminal thrombus and demonstra ivet waveform variability. The visualized portion of the brachiocephalic vein is patent on color Doppler evaluation without intr aluminal thrombus and demonstrates waveform variability. The axillary vein demonstrates appropriate compressibility and waveform variability. The brachial veins demonstrate appropriate compressibility and patency on Doppler evaluation. The basilic vein demonstrates appropriate compressibility and patency on Doppler evaluation. Impression: Occlusive thrombus within the left cephalic vein.
[2025-06-14 02:40] LABS: INR 0.91 (0.9-1.15); Prothrombin Time 9.7 sec (9.3-11.8)
--- NOTE | 2025-06-14 05:11 | DVHHP2 ---
NATALIYA MENDEZ [employer] CON[employer]ULTANT 06/14/25 0511: History of Present Illness Reason for Visit: Rectal pain History of Present Illness 44-year-old male with past medical history of diverticulitis, psychiatric disorders, cocaine dependency presents with complaints of rectal pain x1 week. Patient was recently admitted to this facility with complaints of hematochezia x1 month. During that admission he underwent a colonoscopy with polyp removal. As such on the previous admission patient did leave against medical advice after having a colonoscopy. Today the patient returns with his partner with complaints of rectal pain. However states that bleeding has improved. He is also complaining of pain to the left forearm. Ultrasound of the left upper extremity was positive for superficial cephalic vein thrombus. CBC is unremarkable, CMP is unremarkable. Patient denies fevers, chills, dizziness, shortness of breath, chest pain, palpitations, upper abdominal pain, leg swelling. GI: Diverticulosis, GI bleed Smoke: <1 pack per day ALCOHOL: none Drugs: Cocaine Lives: with Family Review of Systems Constitutional: No: Fever, Chills, Sweats, Weakness, Malaise, Other Eyes: No: Pain, Vision change, Conjunctivae inflammation, Eyelid inflammation, Other, Redness ENT: No: Ear pain, Ear discharge, Nose pain, Nose discharge, Nose congestion, Mouth pain, Mouth swelling, Throat pain, Throat swelling, Other Respiratory: No: Cough, Dry, Shortness of breath, SOB with excertion, Wheezing, Hemoptysis, Pleuritic Pain, Sputum, Wheezing, Other Cardiovascular: No: Chest Pain, Palpitations, Orthopnea, Paroxysmal Noc. Dyspnea, Edema, Lt Headedness, Other Gastrointestinal: Other (Pain and rectum); No: Nausea, Vomiting, Abdominal Pain, Diarrhea, Constipation, Melena, Hematochezia Genitourinary: No Dysuria, No Frequency, No Incontinence, No Hematuria, No Retention, No Other Skin: No: Rash, Lesions, Jaundice, Bruising, Other Neurological: No: Weakness, Numbness, Incoordination, Change in speech, Confusion, Seizures, Other Allergies: Coded Allergies: Penicillins (Verified Allergy, Unknown, 02/22/20) Medications Current Medications Medications Dose Ordered Sig/Thad Route Start Time Stop Time Status Last Admin Dose Admin Acetaminophen 650 mg Q6HP PRN PO 06/14/25 05:15 UNV Acetaminophen/ Hydrocodone Bitart 1 tab Q6HP PRN PO 06/14/25 05:15 UNV Ondansetron HCl 4 mg Q4HP PRN IV 06/14/25 05:15 UNV Nitroglycerin 0.4 mg Q5MINP PRN SL 06/14/25 05:15 UNV Morphine Sulfate 2 mg Q30M PRN IV 06/14/25 05:15 UNV Piperacillin Sod/ Tazobactam Sod 100 ml @ 100 mls/hr TID IV 06/14/25 06:00 UNV Lorazepam 0.5 mg TIDP PRN PO 06/14/25 05:15 UNV Exam Vital Signs Vital Signs Date Time Temp Pulse Resp B/P (MAP) Pulse Ox O2 Delivery O2 Flow Rate FiO2 06/14/25 01:24 98.4 06/14/25 01:09 100 19 146/90 (108) 100 06/14/25 01:09 Room Air* 0 21 General Appearance: Alert, Oriented X3, Cooperative, No acute distress HEENT: Atraumatic, PERRLA, EOMI Respiratory: Clear to auscultation, Normal air movement Cardiovascular: Regular rate, Normal S1, Normal S2 Abdominal: Normal bowel sounds, Soft, No tenderness Extremities: No clubbing, No cyanosis Skin: No rashes, No breakdown Neuro: Normal speech, Strength at 5/5 X4 ext, Sensation intact, Cranial nerves 3-12 NL Psych/Mental Status: Mental status NL, Mood NL (Polypectomy) Labs/Xrays Labs Test 06/14/25 00:42 Range/Units White Blood Count 13.6 #H 4.4-10.8 10^3/uL Red Blood Count 4.18 L 4.5-5.90 10^6/uL Hemoglobin 13.2 #L 13.5-17.5 g/dL Hematocrit 38.7 #L 41.0-53.0 % Mean Corpuscular Volume 92.5 80.0-100.0 fL Mean Corpuscular Hemoglobin 31.6 28.0-32.0 pg Mean Corpuscular Hemoglobin Concent 34.1 32.0-36.0 g/dL Red Cell Distribution Width 13.0 11.8-14.3 % Platelet Count 294 # 140-450 10^3/uL Mean Platelet Volume 8.0 6.9-10.8 fL Neutrophils (%) (Auto) 58.4 37.0-80.0 % Lymphocytes (%) (Auto) 26.6 10.0-50.0 % Monocytes (%) (Auto) 10.0 0.0-12.0 % Eosinophils (%) (Auto) 4.5 0.0-7.0 % Basophils (%) (Auto) 0.5 0.0-2.0 % Neutrophils # (Auto) 7.9 1.6-8.6 10 ^3/uL Lymphocytes # (Auto) 3.6 0.4-5.4 10 ^3/uL Monocytes # (Auto) 1.4 H 0-1.3 10 ^3/uL Eosinophils # (Auto) 0.6 0-0.8 10 ^3/uL Basophils # (Auto) 0.1 0-0.2 10 ^3/uL Nucleated Red Blood Cells 0.1 % Prothrombin Time 9.7 9.3-11.8 sec Prothrombin Time INR 0.91 0.9-1.15 Sodium Level 140 136-145 mmol/L Potassium Level 3.5 3.5-5.1 mmol/L Chloride Level 104 98-107 mmol/L Carbon Dioxide Level 26 20-31 mmol/L Anion Gap 10 5-15 Blood Urea Nitrogen 11 9-23 mg/dL Creatinine 0.71 0.700-1.30 mg/dL Glomerular Filtration Rate Calc 116 >90 mL/min BUN/Creatinine Ratio 15.5 10.0-20.0 Serum Glucose 104 74-106 mg/dL Calcium Level 9.7 8.7-10.4 mg/dL SEPSIS Sepsis Screen Date sepsis recognized/suspect: Jun 14, 2025 Time Sepsis recognized/suspect: 0113 Recent Procedure: No On Antibiotic Therapy: No Respiratory Rate >20: No Heart Rate >90: Yes Temp<36 C (96.8 F) or >38.3 C: No SBP <90 or MAP <65 mmHG: No New Acute Mental Status Change: No Is the patient on CPAP, BIPAP,: No Physician Orders Ct Ab Pel Wo Con-No Oral Or Iv (06/14/25 00:29) Saline Lock (06/14/25 00:29) Lt Upper Dvt (06/14/25 01:07) Stool Occult Blood (06/14/25 02:11) Admit (06/14/25 05:04) Code Status (06/14/25 05:04) Vital Signs .PER UNIT PROTOCOL (06/14/25 05:04) Review Orders With Adm.Md (06/14/25 05:04) Encourage Activity As Tolerate (06/14/25 05:04) Oxygen By Face Mask (06/14/25 05:04) Acetaminophen Tablet (Tylenol Tablet) (06/14/25 05:15) Notify Md Of Changes From Base (06/14/25 05:04) Advance Directive (06/14/25 05:04) Basic Metabolic Panel (06/15/25 05:00) Basic Metabolic Panel (06/16/25 05:00) Basic Metabolic Panel (06/17/25 05:00) Complete Blood Count (06/15/25 05:00) Complete Blood Count (06/16/25 05:00) Complete Blood Count (06/17/25 05:00) Patient Condition (06/14/25 05:04) Allergies (06/14/25 05:04) Hydrocodone-Acet 5/325mg Tab ([place] 5/32 (06/14/25 05:15) Ondansetron Hcl (Zofran) (06/14/25 05:15) Sequential Compression Device (06/14/25 ) Nitroglycerin Sublingual (Ntrostat Subli (06/14/25 05:15) Morphine Sulfate Injection (06/14/25 05:15) Stat Ekg For Chest Pain (06/14/25 05:04) Notify Md Of Changes From Base (06/14/25 05:04) Senior Officer For 24 Hours (06/14/25 05:04) Emergency Dysrhythmia Protocol (06/14/25 05:04) Rhythm Strips Once Every Shift (06/14/25 05:04) Oxygen By Nasal Cannula (06/14/25 05:04) * [facility] Disabilities Services Officer (06/14/25 05:04) Piperacillin-Tazob 3.375gm (Zosyn 3.375g (06/14/25 06:00) Lorazepam Tablet (Ativan Tablet) (06/14/25 05:15) Urinalysis (06/14/25 05:09) Drug Screen (06/14/25 05:09) Vital Signs Date Time Temp Pulse Resp B/P (MAP) Pulse Ox O2 Delivery O2 Flow Rate FiO2 06/14/25 01:24 98.4 06/14/25 01:09 98.3 100 19 146/90 (108) 100 98.3 06/14/25 01:09 100 19 100 Room Air* 0 21 06/13/25 23:36 99.1 108 20 137/98 98 99.1 Laboratory Tests Test 06/14/25 00:42 White Blood Count 13.6 10^3/uL (4.4-10.8) #H Medications Medications Dose Ordered Sig/Thad Route Start Time Stop Time Status Last Admin Dose Admin Acetaminophen 650 mg ONCE ONCE PO 06/14/25 00:30 06/14/25 00:33 DC 06/14/25 01:24 650 MG Tramadol HCl 50 mg ONCE ONCE PO 06/14/25 00:30 06/14/25 00:33 DC 06/14/25 01:24 50 MG Assessment/Plan Assessment/Plan Leukocytosis Rectal pain s/p colonoscopy with polypectomy Left forearm cephalic vein thrombus Psychiatric disorders. Hx cocaine use Plan Admit medical floor Gastroenterology consult. Full liquid diet. Improved hgb 13.2 from previous admission. IV ABX. UA pending. Blood cultures ordered. Will continue home medications, including psychiatric medication. As needed Ativan PO. Patient requested a private room for him and his emotional support partner, per hospital policy. Supportive care for superficial thrombus. GI ppx Pepcid / DVT ppx SCDs Plan discussed with: Patient My Orders Orders - NATALIYA MENDEZ NP Procedure Category Date Status Time Admit ADMIT 06/14/25 Transmitted 05:04 Code Status CODE 06/14/25 Transmitted 05:04 Vital Signs [facility] 06/14/25 In Process 05:04 Review Orders With KERON 06/14/25 In Process Adm. 05:04 Encourage Activity As [facility] 06/14/25 In Process Tolerate 05:04 Oxygen By Face Mask RT 06/14/25 Transmitted 05:04 Acetaminophen Tablet PHA 06/14/25 Logged (Tylenol Tablet) 05:15 Notify Of Changes [facility] 06/14/25 In Process From Base 05:04 Advance Directive [facility] 06/14/25 In Process 05:04 Basic Metabolic Panel LAB 06/15/25 Verified 05:00 Basic Metabolic Panel LAB 06/16/25 Verified 05:00 Basic Metabolic Panel LAB 06/17/25 Verified 05:00 Complete Blood Count LAB 06/15/25 Verified 05:00 Complete Blood Count LAB 06/16/25 Verified 05:00 Complete Blood Count LAB 06/17/25 Verified 05:00 Patient Condition ORDERS 06/14/25 Transmitted 05:04 Allergies [facility] 06/14/25 In Process 05:04 Hydrocodone-Acet PHA 06/14/25 Logged 5/325mg Tab ([place] 05:15 Ondansetron Hcl [facility] 06/14/25 Logged (Zofran) 05:15 Sequential [facility] 06/14/25 In Process Compression Device Nitroglycerin [facility] 06/14/25 Logged Sublingual (Ntrostat 05:15 Morphine Sulfate [facility] 06/14/25 Logged Injection 05:15 Stat Ekg For Chest [facility] 06/14/25 In Process Pain 05:04 Notify Of Changes [facility] 06/14/25 In Process From Base 05:04 Senior Officer For [facility] 06/14/25 In Process 24 Hours 05:04 Emergency Dysrhythmia [facility] 06/14/25 In Process Protocol 05:04 Rhythm Strips Once [facility] 06/14/25 In Process Every Shift 05:04 Oxygen By Nasal RT 06/14/25 Transmitted Cannula 05:04 * [facility] Disabilities Services Officer CONS 06/14/25 Transmitted 05:04 Piperacillin-Tazob PHA 06/14/25 Logged 3.375gm (Zosyn 3.375g 06:00 Lorazepam Tablet [facility] 06/14/25 Logged (Ativan Tablet) 05:15 Urinalysis LAB 06/14/25 Logged 05:09 Drug Screen LAB 06/14/25 Logged 05:09 Date of Service: Jun 14, 2025 Billing Provider: AMAN SLOAN MD Common Visit Codes: NOT BILLABLE AMAN SLOAN MD 06/14/25 1351: Review of Systems Allergies: Coded Allergies: Penicillins (Verified Allergy, Unknown, 02/22/20) Additional Comments Additional Comments Additional Comments Patient is seen and evaluated by me earlier today along with the nurse at bedside. Patient is seen and admitted by nurse practitioner this morning. I agree with his evaluation, documentation, assessment and care plan as outlined. NATALIYA MENDEZ NP Jun 14, 2025 05:11 AMAN SLOAN MD Jun 14, 2025 13:51
[2025-06-14] MEDS ORDERED: ACETAMINOPHEN 325 MG TAB PO PRN (05:15)
[2025-06-14] MEDS ORDERED: ONDANSETRON HCL 4 MG/2 ML VIAL IV PRN (05:15)
[2025-06-14] MEDS ORDERED: NITROGLYCERIN 0.4 MG SL TAB SL PRN (05:15)
[2025-06-14] MEDS ORDERED: MORPHINE SULFATE INJ 2 MG/ml SYRG IV PRN (05:15)
[2025-06-14] MEDS ORDERED: LORazepam 0.5 MG TAB PO PRN (05:15)
[2025-06-14] MEDS ORDERED: PIPERACILLIN-TAZOB 3.375GM 100 ML IV SCH (06:00)
[2025-06-14 06:24] VITALS: BP 123/84; PULSE 83; RESP 18; TEMP 97.7; O2SAT 96
[2025-06-14 08:00] VITALS: PULSE 89; RESP 18; O2SAT 98
[2025-06-14 09:10] VITALS: BP 113/81; PULSE 89; RESP 18; TEMP 97.9; O2SAT 97
[2025-06-14] MEDS: HYDROcodone-ACET 5/325MG TAB PO PRN (09:36)
[2025-06-14 12:10] VITALS: BP 122/84; PULSE 80; RESP 18; TEMP 97.9; O2SAT 97
[2025-06-14] MEDS ORDERED: IOHEXOL 300 MG/ML 100ML BOTTLE IJ ONE (14:26)
--- NOTE | 2025-06-14 15:00 | DVH ---
History: rectal pain Comparison Study: CT CT AB PEL WO CON-NO ORAL OR IV on DOS: 06/14/25, CT CT AB PEL WITH IV CON ONLY o n DOS: 06/07/25, CT CT AB PEL WITH IV CON ONLY on DOS: 05/02/25, CT CT AB PEL WO CON-NO ORAL OR IV on DOS: 11/05/24 Technique: Multidetector spiral CT of the pelvis was performed from iliac crests to pubic symphysis. 100 cc of intravenous contrast was administered during this examination. Portal venous imaging was obtained. Axial, coronal and sagittal multiplanar reformats were performed by the technologist on a separate workstation. Radiation Dose : CT Dose: CTDI volume is 15.77 mGy. Dose-length product is 704.72 mGy*cm Contrast: 100 cc Omnipaque 350. Findings: Visualized bowel: Small bowel and colon are normal in caliber and distribution. The appendix is not visualized; however, no secondary findings of acute appendicitis identified. Ascites: Absent Lymphadenopathy: No pelvic or mesenteric lymphadenopathy. Pelvis Wall and Mesentery: Unremarkable. Vasculature: The visualized abdominal aorta is normal in size and caliber. Abdominal and pelvic vess els demonstrate normal enhancement. Pelvic Organs: Unremarkable Musculoskeletal: No aggressive focal bony lesions, acute fractures or dislocation. Bladder: Unremarkable IMPRESSION: No perianal abscess, obvious fistula within the limits of CT, or other significant abnormality.
[2025-06-14 15:16] LABS: Urine Protein, UAD Negative (Negative)
[2025-06-14 15:27] LABS: Opiate Scree,Urine Neg (NEGATIVE)
[2025-06-14 15:30] LABS: Amphetamine Screen, Urine Neg (NEGATIVE); Barbiturate Scree,Urine Neg (NEGATIVE); Benzodiazephine Screen, Urine Neg (NEGATIVE); Cannabinoid Screen, Urine Neg (NEGATIVE); Cocaine Screen, Urine Pos (NEGATIVE); Phencyclidine Screen, Urine Neg (NEGATIVE)
[2025-06-14 16:10] VITALS: BP 134/95; PULSE 96; RESP 18; TEMP 98; O2SAT 97
[2025-06-14] MEDS ORDERED: HYDR-4902 PO (18:04)
--- NOTE | 2025-06-14 18:06 | DVHCONRES ---
Date Seen: Jun 14, 2025 Resident Creating Document: JHAJJ,SARPUNEET RESIDENT Referring Physician NICKOLAS Juarez Reason for Consultation rectal pain History of Present Illness 44-year-old male with past medical history of diverticulitis, psychiatric disorders, cocaine dependency presents with complaints of rectal pain x1 week. Patient was recently admitted to this facility with complaints of hematochezia x1 month. During that admission he underwent a colonoscopy with polyp removal. As such on the previous admission patient did leave against medical advice after having a colonoscopy. Today the patient returns with his partner with complaints of rectal pain. However states that bleeding has improved. He is also complaining of pain to the left forearm. Ultrasound of the left upper extremity was positive for superficial cephalic vein thrombus. CBC is unremarkable, CMP is unremarkable. Patient denies f shell, chills, dizziness, shortness of breath, chest pain, palpitations, upper abdominal pain, leg swelling. Past Medical History Diverticulosis Past Surgical History Colonoscopy recently Family History: FH: cancer G8 FATHER FH: diverticulitis G8 FATHER FH: thyroid disease G8 MOTHER Family History No significant family history of colon cancer Social History Denies smoking, alcohol, drug use but urine drug screen positive for cocaine Allergies: Coded Allergies: Penicillins (Verified Allergy, Unknown, 02/22/20) Home Meds Active Scripts Naloxone HCl (Narcan) 4 Mg/0.1 Ml Spr, 4 MG NA Q5MINP PRN, #1 SPRAY Prov:AMAN SLOAN MD 11/07/24 Hydrocodone-Acetaminophen (Hydrocodone Bitartrate/AC 5-325 mg) 1 Tab Tab, 1 TAB PO Q6HPRN PRN, #14 TAB Prov:AMAN SLOAN MD 11/07/24 Metronidazole (Flagyl) 500 Mg Tab, 1 TAB PO TID, #30 TAB Prov:AMAN SLOAN MD 11/07/24 Doxycycline (Monohydrate) (Doxycycline) 100 Mg Cap, 100 MG PO BID, #14 CAP Prov:AMAN SLOAN MD 11/07/24 Promethazine-Dm (Promethazine Dm 6.25-15 mg/5Ml) 1 Marielena Marielena, 1 MARIELENA PO TID, #180 ML Prov:MIKALA GARCES 10/25/21 Reported Medications Escitalopram Oxalate (Lexapro) 5 Mg Tab, 20 MG PO DAILY, #30 TAB 2 Refills 06/07/25 Current Medications Current Medications Medications (Trade) Dose Ordered Sig/Thad Route PRN Reason Start Time Stop Time Status Last Admin Acetaminophen (Tylenol Tablet) 650 mg Q6HP PRN PO PAIN SCALE 1-3 OR TEMP>100.4 06/14/25 05:15 Acetaminophen/ Hydrocodone Bitart ([place] 5/325MG Tab) 1 tab Q6HP PRN PO MODERATE PAIN (4-6 PAIN SCALE) 06/14/25 05:15 06/14/25 09:36 Ondansetron HCl (Zofran) 4 mg Q4HP PRN IV NAUSEA / VOMITING 06/14/25 05:15 Nitroglycerin (Ntrostat Sublingual) 0.4 mg Q5MINP PRN SL FOR CHEST PAIN 06/14/25 05:15 Morphine Sulfate 2 mg Q30M PRN IV FOR CHEST PAIN 06/14/25 05:15 Piperacillin Sod/ Tazobactam Sod 100 ml @ 100 mls/hr TID IV 06/14/25 06:00 06/14/25 17:06 DC Lorazepam (Ativan Tablet) 0.5 mg TIDP PRN PO anxiety 06/14/25 05:15 Hydrocortisone Acetate (Anucort-Hc Suppository) 25 mg Q12HR CA 06/14/25 22:00 Review of Systems Seen and examined with the bedside Reports that currently his rectal pain is about 2/10 while being on the pain medication After being discharged from the hospital last time he was here status post co lonoscopy he noticed blood in the stool once but later on has been having regular bowel movements without any blood in stool Reported he feels dizzy at times Vital Signs Vital Signs Date Time Temp Pulse Resp B/P (MAP) Pulse Ox O2 Delivery O2 Flow Rate FiO2 06/14/25 16:10 98.0 96 18 134/95 (108) 97 98.0 06/14/25 08:00 Room Air* 0 21 Physical Exam Gen - no pallor, no scleral icterus Skin - Patients skin is warm and dry. HEENT - normocephalic, atraumatic, dry mucous membranes. Neck - supple, no lymphadenopathy Pulmonary - B/L equal air entry with vesicular breath sounds cardiovascular - regular S1,S2 heard GI - soft nontender abdomen. Bowel sounds normoactive. Neurological - Patient is alert and oriented x4. No motor or sensory weakness Labs/Diagnostic Data Labs Test 06/14/25 14:17 06/14/25 00:42 Range/Units Urine Color Light-yellow Yellow Urine Clarity Clear Clear Urine pH 6.0 5.0-9.0 Urine Specific [place] 1.023 1.001-1.035 Urine Protein Negative Negative Urine Ketones Negative Negative Urine Blood Negative Negative /uL Urine Nitrite Negative Negative Urine Bilirubin Negative Negative Urine Urobilinogen Normal Negative mg/dL Urine Leukocyte Esterase Negative Negative /uL Urine RBC 1 0 - 3 /hpf Urine Microscopic WBC 1 0-3 /HPF Urine Squamous Epithelial Cells Few <5 /hpf Urine Bacteria None seen None Seen /hpf Urine Mucus Few None Seen Urine Glucose Normal Normal mg/dL Urine Opiates Screen Neg NEGATIVE Urine Fentanyl Screen Neg NEGATIVE Urine Barbiturates Screen Neg NEGATIVE Urine Phencyclidine Screen Neg NEGATIVE Urine Amphetamines Screen Neg NEGATIVE Urine Benzodiazepines Screen Neg NEGATIVE Urine Cocaine Screen Pos NEGATIVE Urine Cannabinoids Screen Neg NEGATIVE White Blood Count 13.6 #H 4.4-10.8 10^3/uL Red Blood Count 4.18 L 4.5-5.90 10^6/uL Hemoglobin 13.2 #L 13.5-17.5 g/dL Hematocrit 38.7 #L 41.0-53.0 % Mean Corpuscular Volume 92.5 80.0-100.0 fL Mean Corpuscular Hemoglobin 31.6 28.0-32.0 pg Mean Corpuscular Hemoglobin Concent 34.1 32.0-36.0 g/dL Red Cell Distribution Width 13.0 11.8-14.3 % Platelet Count 294 # 140-450 10^3/uL Mean Platelet Volume 8.0 6.9-10.8 fL Neutrophils (%) (Auto) 58.4 37.0-80.0 % Lymphocytes (%) (Auto) 26.6 10.0-50.0 % Monocytes (%) (Auto) 10.0 0.0-12.0 % Eosinophils (%) (Auto) 4.5 0.0-7.0 % Basophils (%) (Auto) 0.5 0.0-2.0 % Neutrophils # (Auto) 7.9 1.6-8.6 10 ^3/uL Lymphocytes # (Auto) 3.6 0.4-5.4 10 ^3/uL Monocytes # (Auto) 1.4 H 0-1.3 10 ^3/uL Eosinophils # (Auto) 0.6 0-0.8 10 ^3/uL Basophils # (Auto) 0.1 0-0.2 10 ^3/uL Nucleated Red Blood Cells 0.1 % Prothrombin Time 9.7 9.3-11.8 sec Prothrombin Time INR 0.91 0.9-1.15 Sodium Level 140 136-145 mmol/L Potassium Level 3.5 3.5-5.1 mmol/L Chloride Level 104 98-107 mmol/L Carbon Dioxide Level 26 20-31 mmol/L Anion Gap 10 5-15 Blood Urea Nitrogen 11 9-23 mg/dL Creatinine 0.71 0.700-1.30 mg/dL Glomerular Filtration Rate Calc 116 >90 mL/min BUN/Creatinine Ratio 15.5 10.0-20.0 Serum Glucose 104 74-106 mg/dL Calcium Level 9.7 8.7-10.4 mg/dL Assessment Assessment Rectal pain likely tenesmus 2 cm sigmoid polyp status post resection Colonic diverticulosis Cocaine use Upper extremity Superficial thrombophlebitis Plan - CT abdomen pelvis without contrast showed colonic diverticulosis - pelvic CT with IV contrast showed no perianal abscess, 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 Delacruz Plan discussed with: Patient, Spouse, Other (LIMA Santos) JONNY MARTINEZ RESIDENT Jun 14, 2025 18:06
--- NOTE | 2025-06-14 18:08 | DVHDS2 ---
Discharge Summary Date of Admission Jun 14, 2025 at 05:04 Date of Discharge: Jun 14, 2025 Labs/Diagnostic Data: Laboratory Results Test 06/14/25 14:17 06/14/25 00:42 Urine Color Light-yellow (Yellow) Urine Clarity Clear (Clear) Urine pH 6.0 (5.0-9.0) Urine Specific [place] 1.023 (1.001-1.035) Urine Protein Negative (Negative) Urine Ketones Negative (Negative) Urine Blood Negative /uL (Negative) Urine Nitrite Negative (Negative) Urine Bilirubin Negative (Negative) Urine Urobilinogen Normal mg/dL (Negative) Urine Leukocyte Esterase Negative /uL (Negative) Urine RBC 1 /hpf (0 - 3) Urine Microscopic WBC 1 /HPF (0-3) Urine Squamous Epithelial Cells Few /hpf (<5) Urine Bacteria None seen /hpf (None Seen) Urine Mucus Few (None Seen) Urine Glucose Normal mg/dL (Normal) Urine Opiates Screen Neg (NEGATIVE) Urine Fentanyl Screen Neg (NEGATIVE) Urine Barbiturates Screen Neg (NEGATIVE) Urine Phencyclidine Screen Neg (NEGATIVE) Urine Amphetamines Screen Neg (NEGATIVE) Urine Benzodiazepines Screen Neg (NEGATIVE) Urine Cocaine Screen Pos (NEGATIVE) Urine Cannabinoids Screen Neg (NEGATIVE) White Blood Count 13.6 10^3/uL (4.4-10.8) Red Blood Count 4.18 10^6/uL (4.5-5.90) Hemoglobin 13.2 g/dL (13.5-17.5) Hematocrit 38.7 % (41.0-53.0) Mean Corpuscular Volume 92.5 fL (80.0-100.0) Mean Corpuscular Hemoglobin 31.6 pg (28.0-32.0) Mean Corpuscular Hemoglobin Concent 34.1 g/dL (32.0-36.0) Red Cell Distribution Width 13.0 % (11.8-14.3) Platelet Count 294 10^3/uL (140-450) Mean Platelet Volume 8.0 fL (6.9-10.8) Neutrophils (%) (Auto) 58.4 % (37.0-80.0) Lymphocytes (%) (Auto) 26.6 % (10.0-50.0) Monocytes (%) (Auto) 10.0 % (0.0-12.0) Eosinophils (%) (Auto) 4.5 % (0.0-7.0) Basophils (%) (Auto) 0.5 % (0.0-2.0) Neutrophils # (Auto) 7.9 10 ^3/uL (1.6-8.6) Lymphocytes # (Auto) 3.6 10 ^3/uL (0.4-5.4) Monocytes # (Auto) 1.4 10 ^3/uL (0-1.3) Eosinophils # (Auto) 0.6 10 ^3/uL (0-0.8) Basophils # (Auto) 0.1 10 ^3/uL (0-0.2) Nucleated Red Blood Cells 0.1 % Prothrombin Time 9.7 sec (9.3-11.8) Prothrombin Time INR 0.91 (0.9-1.15) Sodium Level 140 mmol/L (136-145) Potassium Level 3.5 mmol/L (3.5-5.1) Chloride Level 104 mmol/L (98-107) Carbon Dioxide Level 26 mmol/L (20-31) Anion Gap 10 (5-15) Blood Urea Nitrogen 11 mg/dL (9-23) Creatinine 0.71 mg/dL (0.700-1.30) Glomerular Filtration Rate Calc 116 mL/min (>90) BUN/Creatinine Ratio 15.5 (10.0-20.0) Serum Glucose 104 mg/dL (74-106) Calcium Level 9.7 mg/dL (8.7-10.4) Other Laboratory Tests 06/14/25 00:42 Brief Hx & Hospital Course: 44-year-old male with past medical history of diverticulitis, psychiatric disorders, cocaine dependency presents with complaints of rectal pain x1 week. Patient was recently admitted to this facility with complaints of hematochezia x1 month. During that admission he underwent a colonoscopy with polyp removal. As such on the previous admission patient did leave against medical advice after having a colonoscopy. Today the patient returns with his partner with complaints of rectal pain. However states that bleeding has improved. He is also complaining of pain to the left forearm. Ultrasound of the left upper extremity was positive for superficial cephalic vein thrombus. CBC is unremarkable, CMP is unremarkable. Patient denies fevers, chills, dizziness, shortness of breath, chest pain, palpitations, upper abdominal pain, leg swelling. He is admitted and had a CT of the abdomen and pelvis did not show any acute significant pathology except for diverticulosis of the colon. Arm ultrasound showed a superficial cephalic wean thrombosis for which he recommended conservative treatment with a warm pressors. Patient while in the hospital remained clinically stable besides his anxiety. Patient counseled at length regarding his CT scan results and findings as well as need for close outpatient follow up with the PCP and sub arc operator. Patient is tolerating his diet. His rectal pain has resolved. Given the rest of his workup is unremarkable he has been discharged home in stable condition. I have talked to him at length regarding his hospital diagnosis and possible causes, CT results, discharge follow-up plan of care. He has verbalized understanding of this and agree with the care plan as outlined. 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 Delacruz Plan discussed with: Patient, Spouse, Other (LIMA Santos) JONNY MARTINEZ RESIDENT Jun 14, 2025 18:06 Condition at Discharge: Stable Final Diagnosis/Problems List Rectal pain, diverticulosis of colon, s/p recent colonscopy Discharge Disposition: Home Discharge Instruct/Medications Diet: Consistent carbohydrate, Cardiac 2g Na,low cholest Activity: No Restrictions, As Tolerated Follow Up/Referral: [facility] next 2-3 days for follow up. Call [phone] for address/directions. SEE PCP after one week. Medications: as presribed and home meidications Scheduled Doxycycline (Monohydrate) (Doxycycline), 100 MG PO BID Escitalopram Oxalate (Lexapro), 20 MG PO DAILY, (Reported) Metronidazole (Flagyl), 1 TAB PO TID Promethazine-Dm (Promethazine Dm 6.25-15 mg/5Ml), 1 MARIELENA PO TID Scheduled PRN Hydrocodone-Acetaminophen (Hydrocodone Bitartrate/AC 5-325 mg), 1 TAB PO Q6HPRN PRN Naloxone HCl (Narcan), 4 MG NA Q5MINP PRN Discharge Statement: "Patient was advised to return to the ER or call 911 if any headaches, dizziness, shortness of breath, chest pain, abdominal pain, bleeding, fevers, or worsening of medical condition. Patient was counseled about treatment plan, medications, possible side effects, patientverbalized understanding. All questions were answered to the best of my ability. This discharge took greater then 30 minutes in planning, reviewing documentation, counseling the patient, and discussing with other team members." ASSESSMENT ASSESSMENT Assessment Rectal pain, diverticulosis of colon, s/p recent colonscopy AMAN SLOAN MD Jun 14, 2025 18:08
[2025-06-14] MEDS ORDERED: HYDROCORTISONE ACET 25 MG RECTAL SUPP PR SCH (22:00)
== END 2025-06-14 19:20 | disposition home or self-care (01) | DRG 392 ==
LOC: ER 23:34 → OVERFLOW 06-14 05:04 → WEST WING 06-14 06:16
PROVIDERS: ADMIT Nurse Practitioner Family; ATTEND Nurse Practitioner Family
DX: K57.30 Diverticulosis of large intestine without perforation or abscess without bleeding (principal); I82.612 Acute embolism and thrombosis of superficial veins of left upper extremity; R19.8 Other specified symptoms and signs involving the digestive system and abdomen; D72.829 Elevated white blood cell count, unspecified; I80.8 Phlebitis and thrombophlebitis of other sites; F17.210 Nicotine dependence, cigarettes, uncomplicated; F14.90 Cocaine use, unspecified, uncomplicated; F41.9 Anxiety disorder, unspecified; Z88.0 Allergy status to penicillin; Z79.899 Other long term (current) drug therapy; Z90.49 Acquired absence of other specified parts of digestive tract; Z83.79 Family history of other diseases of the digestive system
CPT/HCPCS: 36415; 72193; 74176; 80048; 80307; 81001; 85025; 85610; 87040; 87081; 93971; G0378

== ENCOUNTER 2025-06-19 22:51 | Emergency (ER) | payer OTHER ==
[~2025-06-19] VITALS: Ht 185.4 cm; Wt 95.4 kg
--- NOTE | 2025-06-19 23:46 | DVH ---
LEFT Upper Extremity Venous Duplex Clinical History: pain h/o DVT Comparison: US LT UPPER DVT on DOS: 06/14/25 Technique: Duplex Doppler evaluation of the venous system of the LEFT lower neck and upper extremity including color Doppler and spectral/pulsed waveform analysis was performed. Findings: The internal jugular vein demonstrates appropriate compressibility and waveform variability. The subclavian vein is patent on color Doppler evaluation without intraluminal thrombus and demonstra ivet waveform variability. The visualized portion of the brachiocephalic vein is patent on color Doppler evaluation without intr aluminal thrombus and demonstrates waveform variability. The axillary vein demonstrates appropriate compressibility and waveform variability. The brachial veins demonstrate appropriate compressibility and patency on Doppler evaluation. The basilic vein demonstrates appropriate compressibility and patency on Doppler evaluation. Occlusive thrombus within the cephalic vein at the level of the lower arm. Impression: Occlusive thrombus within the cephalic vein in the lower arm.
[2025-06-20 00:02] LABS: Hematocrit 40.8 % (41.0-53.0); Hemoglobin 13.9 g/dL (13.5-17.5); Mean Corpuscular Hemoglobin 31.2 pg (28.0-32.0); Mean Corpuscular Volume 91.9 fL (80.0-100.0); Nucleated Red Blood Cells % 0.0 %
[2025-06-20 00:05] LABS: Chloride 107 mmol/L (98-107); Potassium 3.7 mmol/L (3.5-5.1); Sodium 140 mmol/L (136-145)
[2025-06-20 00:06] LABS: Anion Gap 6 (5-15); Calcium 9.7 mg/dL (8.7-10.4); Carbon Dioxide 27 mmol/L (20-31)
[2025-06-20 00:09] LABS: INR 0.91 (0.9-1.15); Partial Thromboplastin Time 27.2 SEC (24.5-34.5); Prothrombin Time 9.7 sec (9.3-11.8)
[2025-06-20 00:11] LABS: BUN/Creatinine Ratio 8.4 (10.0-20.0); Glucose 104 mg/dL (74-106)
[2025-06-20 00:12] LABS: Blood Urea Nitrogen 7 mg/dL (9-23)
--- NOTE | 2025-06-20 00:14 | ED.PDOC ---
History of Present Illness HPI Comments 44 y/o M, with past medical history of diverticulitis, psychiatric disorders, cocaine dependency, presents with c/c of left forearm pain, swelling, and redness, with associated numbness to left hand. Patient endorses on having worsening symptoms after, initially, being diagnosed with 'blood clots' in his left forearm following recent hospital admission discharge for rectal pain, last week. Patient also still complains of rectal pain. Denies any recent injuries or trauma. Denies any further acute symptoms. Chief Complaint: Upper Extremity Time Seen by MD: 23:00 Primary Care Provider: WALTER ARENAS Reviewed Notes: Nurses Notes, Medications, Allergies Allergies: Coded Allergies: Penicillins (Verified Allergy, Unknown, 02/22/20) Home Meds Active Scripts Cyclobenzaprine Hcl (CYCLOBENZAPRINE HCL) 7.5 Mg Tab, 7.5 MG PO Q6HP PRN, #30 TAB Prov:MADAN TAVARES MD 06/20/25 Gabapentin (Once-Daily) (Gabapentin) 300 Mg Tab, 300 MG PO Q6HP PRN, #60 TAB Prov:MADAN TAVARES MD 06/20/25 Apixaban Base (ELIQUIS) 5 Mg Tab, 5 MG PO BID for 60 Days, #120 TAB Prov:MADAN TAVARES MD 06/20/25 Hydrocodone-Acetaminophen (Hydrocodone Bitartrate/AC 5-325 mg) 1 Tab Tab, 1 TAB PO Q6HPRN PRN, #10 TAB Prov:AMAN SLOAN MD 06/14/25 Naloxone HCl (Narcan) 4 Mg/0.1 Ml Spr, 4 MG NA Q5MINP PRN, #1 SPRAY Prov:AMAN SLOAN MD 11/07/24 Metronidazole (Flagyl) 500 Mg Tab, 1 TAB PO TID, #30 TAB Prov:AMAN SLOAN MD 11/07/24 Doxycycline (Monohydrate) (Doxycycline) 100 Mg Cap, 100 MG PO BID, #14 CAP Prov:AMAN SLOAN MD 11/07/24 Promethazine-Dm (Promethazine Dm 6.25-15 mg/5Ml) 1 Marielena Marielena, 1 MARIELENA PO TID, #180 ML Prov:MIKALA GARCES 10/25/21 Reported Medications Escitalopram Oxalate (Lexapro) 5 Mg Tab, 20 MG PO DAILY, #30 TAB 2 Refills 06/07/25 Information Source: Patient Mode of Arrival: Ambulatory Severity: Moderate Timing: Days Duration: Since onset Prehospital treatment: None Past Medical History Past Medical History (Other): diverticulitis, psychiatric disorders, cocaine dependency Surgical History: Appendectomy, Tonsillectomy Family History Family History: Reviewed,noncontributory to illness Social History Smoker: Cigarettes Alcohol: Occasionally Drugs: Cocaine Lives In: Home All Other Systems: Reviewed and Negative (As per HPI) Physical Exam General Appearance: No Apparent Distress, Normal HEENT: Normal ENT Inspection, Pharynx Normal, TMs Normal Neck: Full Range of Motion, Non-Tender, Normal, Normal Inspection Respiratory: Chest Non-Tender, Lungs Clear, No Accessory Muscle Use, No Respiratory Distress, Normal Breath Sounds Cardiovascular: No Edema, No JVD, No Murmur, No Gallop, Normal Peripheral Pulses, Regular Rate/Rhythm Breast Exam: Deferred Gastrointestinal: No Organomegaly, Non Tender, No Pulsatile Mass, Normal Bowel Sounds, Soft Genitalia: Deferred Pelvic: Deferred Rectal: Deferred Extremities: No calf tenderness, Normal capillary refill, Normal range of motion, No pedal edema, Swelling (mild swelling to left forearm), Tender (left forearm ) Musculoskeletal : Apperance: Normal Neurologic: Alert, 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 Was a procedure done?: No Differential Dx Considerations may include: DVT, cellulitis, dermatitis, among others X-Ray, Labs, Meds, VS Vital Signs Date Time Temp Pulse Resp B/P (MAP) Pulse Ox O2 Delivery O2 Flow Rate FiO2 06/20/25 01:20 110 20 97 Room Air* 0 21 06/20/25 01:15 98.2 110 20 150/109 (123) 97 98.2 06/19/25 22:54 98.3 111 18 139/97 97 98.3 Lab Test 06/19/25 23:40 Range/Units White Blood Count 8.6 # 4.4-10.8 10^3/uL Red Blood Count 4.44 L 4.5-5.90 10^6/uL Hemoglobin 13.9 13.5-17.5 g/dL Hematocrit 40.8 L 41.0-53.0 % Mean Corpuscular Volume 91.9 80.0-100.0 fL Mean Corpuscular Hemoglobin 31.2 28.0-32.0 pg Mean Corpuscular Hemoglobin Concent 34.0 32.0-36.0 g/dL Red Cell Distribution Width 13.5 11.8-14.3 % Platelet Count 379 140-450 10^3/uL Mean Platelet Volume 7.6 6.9-10.8 fL Neutrophils (%) (Auto) 56.9 37.0-80.0 % Lymphocytes (%) (Auto) 26.9 10.0-50.0 % Monocytes (%) (Auto) 10.4 0.0-12.0 % Eosinophils (%) (Auto) 4.7 0.0-7.0 % Basophils (%) (Auto) 1.1 0.0-2.0 % Neutrophils # (Auto) 4.9 1.6-8.6 10 ^3/uL Lymphocytes # (Auto) 2.3 0.4-5.4 10 ^3/uL Monocytes # (Auto) 0.9 0-1.3 10 ^3/uL Eosinophils # (Auto) 0.4 0-0.8 10 ^3/uL Basophils # (Auto) 0.1 0-0.2 10 ^3/uL Nucleated Red Blood Cells 0.0 % Prothrombin Time 9.7 9.3-11.8 sec Prothrombin Time INR 0.91 0.9-1.15 Activated Partial Thromboplast Time 27.2 24.5-34.5 SEC Sodium Level 140 136-145 mmol/L Potassium Level 3.7 3.5-5.1 mmol/L Chloride Level 107 98-107 mmol/L Carbon Dioxide Level 27 20-31 mmol/L Anion Gap 6 5-15 Blood Urea Nitrogen 7 L 9-23 mg/dL Creatinine 0.83 0.700-1.30 mg/dL Glomerular Filtration Rate Calc 111 >90 mL/min BUN/Creatinine Ratio 8.4 L 10.0-20.0 Serum Glucose 104 74-106 mg/dL Calcium Level 9.7 8.7-10.4 mg/dL [facility] [id number] [place], [place] [id number] Ph: [phone] DIAGNOSTIC IMAGING Diagnostic Imaging Report : [id number] Signed PATIENT: LAILA PUENTES ACCT: [id number] UNIT: [id number] : 1980 LOC: ER ROOM / BED: / AGE / SEX: 44 / M ADM STATUS: REG ER SERVICE 04 ORDERING PHYSICIAN: MADAN TAVARES MD PROCEDURE(s): LUDVT - LT Upper DVT REASON: pain h/o DVT ORDER NUMBER(s): [id number], ACCESSION NUMBER(s): [id number] LEFT Upper Extremity Venous Duplex Clinical History: pain h/o DVT Comparison: US LT UPPER DVT on DOS: 06/14/25 Technique: Duplex Doppler evaluation of the venous system of the LEFT lower neck and upper extremity including color Doppler and spectral/pulsed waveform analysis was performed. Findings: The internal jugular vein demonstrates appropriate compressibility and waveform variability. The subclavian vein is patent on color Doppler evaluation without intraluminal thrombus and demonstrates waveform variability. The visualized portion of the brachiocephalic vein is patent on color Doppler evaluation without intraluminal thrombus and demonstrates waveform variability. The axillary vein demonstrates appropriate compressibility and waveform variability. The brachial veins demonstrate appropriate compressibility and patency on Doppler evaluation. The basilic vein demonstrates appropriate compressibility and patency on Doppler evaluation. Occlusive thrombus within the cephalic vein at the level of the lower arm. Impression: Occlusive thrombus within the cephalic vein in the lower arm. ATED BY: AGUILAR CASILLAS MD DICTATED DATE/TIME: 06/19/252342 SIGNED BY: AGUILAR CASILLAS MD SIGNED DATE/TIME: 06/19/252342 CC: Time of 1ST Reevaluation: 23:30 Reevaluation 1ST: Unchanged Patient Education/Counseling: Diagnosis, Treatment Family Education/Counseling: No Family Present SEPSIS Sepsis Screen Date sepsis recognized/suspect: Jun 19, 2025 Time Sepsis recognized/suspect: 2256 Recent Procedure: No On Antibiotic Therapy: No Respiratory Rate >20: No Heart Rate >90: No Temp<36 C (96.8 F) or >38.3 C: No SBP <90 or MAP <65 mmHG: No New Acute Mental Status Change: No Is the patient on CPAP, BIPAP,: No Physician Orders Lt Upper Dvt (06/19/25 23:05) Vital Signs Date Time Temp Pulse Resp B/P (MAP) Pulse Ox O2 Delivery O2 Flow Rate FiO2 06/20/25 01:20 110 20 97 Room Air* 0 21 06/20/25 01:15 98.2 110 20 150/109 (123) 97 98.2 06/19/25 22:54 98.3 111 18 139/97 97 98.3 Laboratory Tests Test 06/19/25 23:40 White Blood Count 8.6 10^3/uL (4.4-10.8) # Departure 1 Departure Time of Disposition: 01:00 Impression: Primary Impression: Superficial venous thrombosis of left upper extremity Disposition: HOME / SELF CARE / HOMELESS Condition: Stable e-Prescriptions Cyclobenzaprine Hcl (CYCLOBENZAPRINE HCL) 7.5 Mg Tab 7.5 MG PO Q6HP PRN, #30 TAB Prov: MADAN TAVARES MD 06/20/25 Gabapentin (Once-Daily) (Gabapentin) 300 Mg Tab 300 MG PO Q6HP PRN, #60 TAB Prov: MADAN TAVARES MD 06/20/25 Apixaban Base (ELIQUIS) 5 Mg Tab 5 MG PO BID for 60 Days, #120 TAB Prov: MADAN TAVARES MD 06/20/25 Discharged With: Self Comments Patient has a cephalic vein thrombosis in the left arm on ultrasound. I will start the patient on Eliquis. He has been a bit tachycardic. I offer the patient admission but he declined. Critical Care Note Critical Care Time?: No Stability Stability form required: No Heart Score Heart Score: Heart Score Response (Comments) Value History N/A 0 EKG N/A 0 Age N/A 0 Risk Factors N/A 0 Troponin N/A 0 Total 0 I personally scribed for MADAN TAVARES MD ([email or web address]) on 06/20/25 at 00:14. Electronically submitted by Moreno Ye ([email or web address]). MADAN TAVARES MD Jun 20, 2025 00:14
[2025-06-20] MEDS ORDERED: APIX5TAB PO (01:02)
[2025-06-20 01:15] VITALS: BP 150/109; TEMP 98.2
[2025-06-20 01:20] VITALS: PULSE 110; RESP 20; O2SAT 97
[2025-06-20] MEDS ORDERED: GABA300T4 PO (01:32)
[2025-06-20] MEDS ORDERED: CYCL-838 PO (01:32)
[2025-06-20] MEDS ORDERED: APIXABAN 5 MG TAB PO SCH (10:00)
== END 2025-06-20 01:43 | disposition home or self-care (01) ==
LOC: ER 22:51
DX: I82.612 Acute embolism and thrombosis of superficial veins of left upper extremity (principal); F14.20 Cocaine dependence, uncomplicated; F17.210 Nicotine dependence, cigarettes, uncomplicated; Z88.0 Allergy status to penicillin; Z90.49 Acquired absence of other specified parts of digestive tract; Z90.89 Acquired absence of other organs; Z79.01 Long term (current) use of anticoagulants; Z79.899 Other long term (current) drug therapy
CPT/HCPCS: 36415; 80048; 85025; 85610; 85730; 93971